=== PATIENT | female | born 1950 | race Caucasian/White ===

== ENCOUNTER → 2016-04-11 | Outpatient (CLI) | payer MEDICARE, OTHER | LOC: M SMT 10:46 | PROVIDERS: ATTEND Internal Medicine Rheumatology | DX: M85.819 Other specified disorders of bone density and structure, unspecified shoulder (principal); E55.9 Vitamin D deficiency, unspecified ==

== ENCOUNTER → 2016-06-05 | Outpatient (CLI) | payer MEDICARE, OTHER ==
[~2016-06-05] VITALS: Ht 152.4 cm; Wt 73.9 kg
[~2016-06-05] MED LIST: ASPI81TA85 PO; ATEN50TA2 PO; FISH1000 PO; HYDR12.55 PO; INFL10VL IV; LEVO75TA4 PO; LIDOCAINE 2% INJ 100 MG/5 ML SDV (FOR ANES.) As Ordered ONE; MULT1TAB10 PO; NABU50TA PO; NS 1,000 ML IV SCH; OMEP40CA2 PO; PROPOFOL 200 MG/20 ML VIAL As Ordered ONE; TRAM50TA2 PO; TYLE500T78 PO; VITA50003 PO; VITA500C10 PO
--- NOTE | 2016-06-05 12:38 | ROOR ---
Patient Name: Dori Castillo Procedure Date: 06/05/2016 12:21 PM Date of : 1950 Age: 65 Room: [facility] Gender: Female Note Status: Finalized Procedure: Colonoscopy Indications: Screening for colorectal malignant neoplasm Providers: Thanh PATRICIA MD Referring MD: LAURIE Simmons PA-C Requesting Provider: Medicines: Monitored Anesthesia Care Complications: No immediate complications. Procedure: Pre-Anesthesia Assessment: - The heart rate, respiratory rate, oxygen saturations, blood pressure, adequacy of pulmonary ventilation, and response to care were monitored throughout the procedure. The Colonoscope was introduced through the anus and advanced to the cecum, identified by appendiceal orifice and ileocecal valve. The colonoscopy was performed without difficulty. The patient tolerated the procedure well. The quality of the bowel preparation was good. Findings: The perianal and digital rectal examinations were normal. (Exam: Complete, Prep: Good or Excellent.) Two sessile polyps were found in the sigmoid colon. The polyps were 3 to 4 mm in size. These polyps were removed with a cold snare. Resection and retrieval were complete. Multiple medium-mouthed diverticula were found in the sigmoid colon. The exam was otherwise without abnormality on direct and retroflexion views. Impression: - Two 3 to 4 mm polyps in the sigmoid colon, removed with a cold snare. Resected and retrieved. - Mild diverticulosis in the sigmoid colon. - The examination was otherwise normal on direct and retroflexion views. Recommendation: - Repeat colonoscopy in 5 years for surveillance. Thanh Patricia MD Thanh PATRICIA MD 06/05/2016 12:38:15 PM This report has been signed electronically. Number of Addenda: 0 Note Initiated On: 06/05/2016 12:21 PM Estimated Blood Loss: Estimated blood loss: none.
[2016-06-05 13:05] VITALS: BP 144/75
== END | disposition home or self-care (01) ==
LOC: M OPP 10:30
PROVIDERS: ATTEND Internal Medicine Gastroenterology
DX: Z12.11 Encounter for screening for malignant neoplasm of colon (principal); D12.5 Benign neoplasm of sigmoid colon; K57.30 Diverticulosis of large intestine without perforation or abscess without bleeding; I10 Essential (primary) hypertension; E78.5 Hyperlipidemia, unspecified; E03.9 Hypothyroidism, unspecified; R12 Heartburn; M19.90 Unspecified osteoarthritis, unspecified site; M06.9 Rheumatoid arthritis, unspecified; Z78.0 Asymptomatic menopausal state; Z88.0 Allergy status to penicillin; Z79.82 Long term (current) use of aspirin; Z79.899 Other long term (current) drug therapy; Z80.1 Family history of malignant neoplasm of trachea, bronchus and lung

== ENCOUNTER → 2016-07-31 | Outpatient (CLI) | payer MEDICARE, OTHER ==
[~2016-07-31] MED LIST changes: -LIDOCAINE 2% INJ 100 MG/5 ML SDV (FOR ANES.) As Ordered ONE; -NS 1,000 ML IV SCH; -PROPOFOL 200 MG/20 ML VIAL As Ordered ONE
[2016-07-31 18:33] LABS: BASO % 0.5 % (0.0-1.0); EOS # 0.1 K/mm3 (0.0-0.50); LARGE UNSTAINED CELL # 0.1 K/mm3 (0.0-0.4); LARGE UNSTAINED CELL % 1.5 % (0.0-4.0); LYMPH # 1.8 K/mm3 (1.5-4.5); LYMPH % 24.7 % (24.0-44.0); MEAN CORPUSCULAR HEMOGLOBIN 28.9 pg (27.0-33.0); MEAN CORPUSCULAR HGB CONC 32.8 g/dl (32.0-36.5); MEAN CORPUSCULAR VOLUME 87.9 fl (80.0-96.0); MONO # 0.3 K/mm3 (0.0-0.8); MONO % 4.1 % (0.0-5.0); NEUTROPHILS # 4.7 K/mm3 (1.8-7.7); NEUTROPHILS % 67.3 % (36.0-66.0); PLATELET COUNT, AUTOMATED 236 k/mm3 (150-450); RED CELL DISTRIBUTION WIDTH 12.6 % (11.5-14.5); WHITE BLOOD COUNT 6.9 K/mm3 (4.0-10.0)
[2016-07-31 18:42] LABS: ALBUMIN 3.5 GM/DL (3.2-5.2); ALKALINE PHOSPHATASE 52 U/L (45-117); ALT/SGPT 27 U/L (12-78); ANION GAP 11 MEQ/L (8-16); AST/SGOT 25 U/L (15-37); BILIRUBIN,TOTAL 0.4 MG/DL (0.2-1.0); BLOOD UREA NITROGEN 7 MG/DL (7-18); CALCIUM LEVEL 8.3 MG/DL (8.8-10.2); CARBON DIOXIDE LEVEL 28 MEQ/L (21-32); CHLORIDE LEVEL 99 MEQ/L (98-107); CREATININE FOR GFR 0.69 MG/DL (0.55-1.02); GLOMERULAR FILTRATION RATE > 60.0 (>45); GLUCOSE, FASTING 119 MG/DL (80-110); POTASSIUM SERUM 3.9 MEQ/L (3.5-5.1); SODIUM LEVEL 138 MEQ/L (136-145); TOTAL PROTEIN 7.4 GM/DL (6.4-8.2)
== END ==
LOC: M SMT 11:26
PROVIDERS: ATTEND Internal Medicine Rheumatology
DX: M06.09 Rheumatoid arthritis without rheumatoid factor, multiple sites (principal); M85.89 Other specified disorders of bone density and structure, multiple sites; Z79.899 Other long term (current) drug therapy

== ENCOUNTER → 2017-01-29 | Outpatient (REF) | payer MEDICARE, OTHER ==
[~2017-01-29] MED LIST changes: +NABU500T PO; -NABU50TA PO; +VITA1CAP40 PO; -VITA50003 PO
[2017-01-29 15:35] LABS: MEAN CORPUSCULAR HEMOGLOBIN 28.4 pg (27.0-33.0); MEAN CORPUSCULAR VOLUME 88.7 fl (80.0-96.0); PLATELET COUNT, AUTOMATED 249 10^3/uL (150-450); RED CELL DISTRIBUTION WIDTH 12.5 % (11.5-14.5); WHITE BLOOD COUNT 5.1 10^3/uL (4.0-10.0)
[2017-01-29 15:41] LABS: ALBUMIN 3.7 GM/DL (3.2-5.2); ALBUMIN/GLOBULIN RATIO 0.93 (1.00-1.93); ALKALINE PHOSPHATASE 53 U/L (45-117); ALT/SGPT 26 U/L (12-78); ANION GAP 8 MEQ/L (8-16); AST/SGOT 21 U/L (7-37); BILIRUBIN,TOTAL 0.3 MG/DL (0.2-1.0); BLOOD UREA NITROGEN 6 MG/DL (7-18); CALCIUM LEVEL 9.4 MG/DL (8.8-10.2); CARBON DIOXIDE LEVEL 31 MEQ/L (21-32); CHLORIDE LEVEL 97 MEQ/L (98-107); CHOLESTEROL LEVEL 283 MG/DL (<200); CREATININE FOR GFR 0.52 MG/DL (0.55-1.02); GLOMERULAR FILTRATION RATE > 60.0 (>45); GLUCOSE, FASTING 94 MG/DL (80-110); MAGNESIUM LEVEL 1.3 MG/DL (1.8-2.4); POTASSIUM SERUM 3.8 MEQ/L (3.5-5.1); SODIUM LEVEL 136 MEQ/L (136-145); TOTAL PROTEIN 7.7 GM/DL (6.4-8.2); TRIGLYCERIDES LEVEL 210 MG/DL (<150)
[2017-02-04 14:18] LABS: BENZODIAZEPINES, URINE SCREEN Negative ng/mL (Cutoff=200); METHADONE, URINE SCREEN Negative ng/mL (Cutoff=300); pH, URINE 8.6 (4.5-8.9)
== END ==
LOC: M SFHCLACO 08:53
PROVIDERS: ATTEND Physician Assistant
DX: M06.9 Rheumatoid arthritis, unspecified (principal); I10 Essential (primary) hypertension; E78.2 Mixed hyperlipidemia; K21.9 Gastro-esophageal reflux disease without esophagitis; E03.9 Hypothyroidism, unspecified; E55.9 Vitamin D deficiency, unspecified; Z79.899 Other long term (current) drug therapy

== ENCOUNTER → 2017-05-14 | Outpatient (CLI) | payer MEDICARE, OTHER ==
[2017-05-14 13:00] LABS: BASO % 0.5 % (0.0-1.0); EOS # 0.2 10^3/uL (0.0-0.50); EOS % 3.2 % (0.0-3.0); HEMATOCRIT 37.6 % (36.0-47.0); HEMOGLOBIN 12.2 g/dl (12.0-16.0); IMMATURE GRANULOCYTE % 0.2 % (0-3.0); LYMPH # 2.1 10^3/uL (1.5-4.5); LYMPH % 37.2 % (24.0-44.0); MEAN CORPUSCULAR HEMOGLOBIN 28.6 pg (27.0-33.0); MEAN CORPUSCULAR HGB CONC 32.4 g/dl (32.0-36.5); MEAN CORPUSCULAR VOLUME 88.3 fl (80.0-96.0); MONO # 0.4 10^3/uL (0.0-0.8); MONO % 6.8 % (0.0-5.0); NEUTROPHILS # 2.9 10^3/uL (1.8-7.7); NEUTROPHILS % 52.1 % (36.0-66.0); PLATELET COUNT, AUTOMATED 233 10^3/uL (150-450); RED BLOOD COUNT 4.26 10^6/uL (4.00-5.40); RED CELL DISTRIBUTION WIDTH 12.6 % (11.5-14.5); WHITE BLOOD COUNT 5.6 10^3/uL (4.0-10.0)
[2017-05-14 14:00] LABS: ALBUMIN 3.7 GM/DL (3.2-5.2); ALBUMIN/GLOBULIN RATIO 0.88 (1.00-1.93); ALKALINE PHOSPHATASE 58 U/L (45-117); ALT/SGPT 26 U/L (12-78); ANION GAP 9 MEQ/L (8-16); AST/SGOT 27 U/L (7-37); BILIRUBIN,TOTAL 0.5 MG/DL (0.2-1.0); BLOOD UREA NITROGEN 9 MG/DL (7-18); CARBON DIOXIDE LEVEL 30 MEQ/L (21-32); CHLORIDE LEVEL 99 MEQ/L (98-107); CREATININE FOR GFR 0.61 MG/DL (0.55-1.30); GLOMERULAR FILTRATION RATE > 60.0 (>45); GLUCOSE, FASTING 101 MG/DL (70-100); POTASSIUM SERUM 3.8 MEQ/L (3.5-5.1); SODIUM LEVEL 138 MEQ/L (136-145); TOTAL PROTEIN 7.9 GM/DL (6.4-8.2)
== END ==
LOC: M SMT 10:09
DX: Z51.81 Encounter for therapeutic drug level monitoring (principal); Z79.899 Other long term (current) drug therapy; M06.09 Rheumatoid arthritis without rheumatoid factor, multiple sites
CPT/HCPCS: 80053

== ENCOUNTER → 2017-06-16 | Outpatient (REF) | payer MEDICARE, OTHER ==
[2017-06-16 14:37] LABS: TOTAL 25(OH) VITAMIN D 44.2 NG/ML (30.0-100.0)
[2017-06-16 14:44] LABS: ALBUMIN 3.9 GM/DL (3.2-5.2); ALBUMIN/GLOBULIN RATIO 0.98 (1.00-1.93); ALKALINE PHOSPHATASE 58 U/L (45-117); ALT/SGPT 23 U/L (12-78); ANION GAP 12 MEQ/L (8-16); AST/SGOT 23 U/L (7-37); BILIRUBIN,TOTAL 0.5 MG/DL (0.2-1.0); BLOOD UREA NITROGEN 7 MG/DL (7-18); CALCIUM LEVEL 9.2 MG/DL (8.8-10.2); CARBON DIOXIDE LEVEL 27 MEQ/L (21-32); CHLORIDE LEVEL 99 MEQ/L (98-107); CHOLESTEROL LEVEL 291 MG/DL (<200); CHOLESTEROL RISK RATIO 4.098 (<5); CREATININE FOR GFR 0.65 MG/DL (0.55-1.30); GLOMERULAR FILTRATION RATE > 60.0 (>45); GLUCOSE, FASTING 131 MG/DL (70-100); HDL CHOLESTEROL 71 MG/DL (>40); LDL CHOLESTEROL 176.8 MG/DL (<100); NON-HDL-C 220 MG/DL; POTASSIUM SERUM 3.4 MEQ/L (3.5-5.1); SODIUM LEVEL 138 MEQ/L (136-145); THYROID STIMULATING HORMONE 0.055 uIU/ML (0.358-3.740); TOTAL PROTEIN 7.9 GM/DL (6.4-8.2); TRIGLYCERIDES LEVEL 216 MG/DL (<150)
== END ==
LOC: M SFHCLACO 09:03
DX: E78.2 Mixed hyperlipidemia (principal); I10 Essential (primary) hypertension; E03.9 Hypothyroidism, unspecified; E55.9 Vitamin D deficiency, unspecified
CPT/HCPCS: 84443

== ENCOUNTER → 2017-07-16 | Outpatient (REF) | payer MEDICARE, OTHER ==
[2017-07-16 15:13] LABS: ESTIMATED AVERAGE GLUCOSE 94 MG/DL (60-110); HEMOGLOBIN A1c 4.9 %
[2017-07-16 15:24] LABS: ALBUMIN 3.9 GM/DL (3.2-5.2); ALBUMIN/GLOBULIN RATIO 0.98 (1.00-1.93); ALKALINE PHOSPHATASE 60 U/L (45-117); ALT/SGPT 29 U/L (12-78); ANION GAP 8 MEQ/L (8-16); AST/SGOT 24 U/L (7-37); BILIRUBIN,TOTAL 0.3 MG/DL (0.2-1.0); BLOOD UREA NITROGEN 13 MG/DL (7-18); CALCIUM LEVEL 8.8 MG/DL (8.8-10.2); CARBON DIOXIDE LEVEL 30 MEQ/L (21-32); CHLORIDE LEVEL 101 MEQ/L (98-107); CHOLESTEROL LEVEL 205 MG/DL (<200); CHOLESTEROL RISK RATIO 3.014 (<5); CREATININE FOR GFR 0.76 MG/DL (0.55-1.30); GLOMERULAR FILTRATION RATE > 60.0 (>45); GLUCOSE, FASTING 78 MG/DL (70-100); HDL CHOLESTEROL 68 MG/DL (>40); NON-HDL-C 137 MG/DL; SODIUM LEVEL 139 MEQ/L (136-145); THYROID STIMULATING HORMONE 0.084 uIU/ML (0.358-3.740); TOTAL PROTEIN 7.9 GM/DL (6.4-8.2); TRIGLYCERIDES LEVEL 200 MG/DL (<150)
== END ==
LOC: M SFHCLACO 09:01
DX: R73.9 Hyperglycemia, unspecified (principal); E87.6 Hypokalemia; J30.89 Other allergic rhinitis; E78.2 Mixed hyperlipidemia; E03.9 Hypothyroidism, unspecified
CPT/HCPCS: 84443

== ENCOUNTER → 2017-09-22 | Outpatient (REF) | payer MEDICARE, OTHER ==
[2017-09-22 15:07] LABS: BASO # 0.1 10^3/uL (0.0-0.2); BASO % 0.9 % (0.0-1.0); EOS # 0.3 10^3/uL (0.0-0.50); HEMATOCRIT 34.8 % (36.0-47.0); HEMOGLOBIN 11.2 g/dl (12.0-15.5); IMMATURE GRANULOCYTE % 0.1 % (0-3.0); LYMPH % 29.2 % (24.0-44.0); MEAN CORPUSCULAR HEMOGLOBIN 28.3 pg (27.0-33.0); MEAN CORPUSCULAR HGB CONC 32.2 g/dl (32.0-36.5); MEAN CORPUSCULAR VOLUME 87.9 fl (80.0-96.0); MONO # 0.4 10^3/uL (0.0-0.8); MONO % 5.4 % (0.0-5.0); NEUTROPHILS # 4.2 10^3/uL (1.8-7.7); NEUTROPHILS % 60.4 % (36.0-66.0); PLATELET COUNT, AUTOMATED 240 10^3/uL (150-450); RED BLOOD COUNT 3.96 10^6/uL (4.00-5.40); RED CELL DISTRIBUTION WIDTH 12.6 % (11.5-14.5)
[2017-09-22 15:19] LABS: ALBUMIN 3.9 GM/DL (3.2-5.2); ALT/SGPT 50 U/L (12-78); AST/SGOT 47 U/L (7-37); C REACTIVE PROTEIN QUANTITATIV 0.39 MG/DL (0.00-0.30); CREATININE FOR GFR 0.91 MG/DL (0.55-1.30); GLOMERULAR FILTRATION RATE > 60.0 (>45)
[2017-09-22 15:40] LABS: ERYTHROCYTE SEDIMENTATION RATE 61 mm/hr (0-30)
[2017-09-23 10:38] LABS: HEPATITIS B SURFACE ANTIGEN NEGATIVE (NEGATIVE)
[2017-09-23 11:03] LABS: HEPATITIS C VIRUS ABY INDEX 0.1 INDEX (<0.8)
== END ==
LOC: M LAB REF 14:47
DX: M05.79 Rheumatoid arthritis with rheumatoid factor of multiple sites without organ or systems involvement (principal); Z51.81 Encounter for therapeutic drug level monitoring; Z79.899 Other long term (current) drug therapy; E78.2 Mixed hyperlipidemia; E03.9 Hypothyroidism, unspecified
CPT/HCPCS: 84443; 87340

== ENCOUNTER → 2017-09-22 | Outpatient (REF) | payer MEDICARE, OTHER ==
[2017-09-22 15:28] LABS: ALBUMIN 3.7 GM/DL (3.2-5.2); ALBUMIN/GLOBULIN RATIO 0.93 (1.00-1.93); ALKALINE PHOSPHATASE 62 U/L (45-117); ALT/SGPT 48 U/L (12-78); ANION GAP 11 MEQ/L (8-16); AST/SGOT 43 U/L (7-37); BILIRUBIN,TOTAL 0.4 MG/DL (0.2-1.0); BLOOD UREA NITROGEN 14 MG/DL (7-18); CALCIUM LEVEL 8.7 MG/DL (8.8-10.2); CARBON DIOXIDE LEVEL 27 MEQ/L (21-32); CHLORIDE LEVEL 100 MEQ/L (98-107); CHOLESTEROL LEVEL 242 MG/DL (<200); CHOLESTEROL RISK RATIO 4.653 (<5); GLOMERULAR FILTRATION RATE > 60.0 (>45); GLUCOSE, FASTING 81 MG/DL (70-100); HDL CHOLESTEROL 52 MG/DL (>40); LDL CHOLESTEROL 128.4 MG/DL (<100); NON-HDL-C 190 MG/DL; POTASSIUM SERUM 3.7 MEQ/L (3.5-5.1); SODIUM LEVEL 138 MEQ/L (136-145); THYROID STIMULATING HORMONE 0.111 uIU/ML (0.358-3.740); TOTAL PROTEIN 7.7 GM/DL (6.4-8.2); TRIGLYCERIDES LEVEL 308 MG/DL (<150)
== END ==
LOC: M SFHCLACO 09:15
DX: E78.2 Mixed hyperlipidemia (principal); E03.9 Hypothyroidism, unspecified
CPT/HCPCS: 84443

== ENCOUNTER → 2017-11-03 | Outpatient (REF) | payer MEDICARE, OTHER ==
[2017-11-03 15:11] LABS: TOTAL 25(OH) VITAMIN D 32.4 NG/ML (30.0-100.0)
[2017-11-03 15:17] LABS: ALBUMIN 3.6 GM/DL (3.2-5.2); ALBUMIN/GLOBULIN RATIO 0.86 (1.00-1.93); ALKALINE PHOSPHATASE 48 U/L (45-117); ALT/SGPT 47 U/L (12-78); ANION GAP 10 MEQ/L (8-16); AST/SGOT 45 U/L (7-37); BILIRUBIN,TOTAL 0.5 MG/DL (0.2-1.0); BLOOD UREA NITROGEN 15 MG/DL (7-18); CALCIUM LEVEL 8.8 MG/DL (8.8-10.2); CARBON DIOXIDE LEVEL 27 MEQ/L (21-32); CHLORIDE LEVEL 103 MEQ/L (98-107); CHOLESTEROL LEVEL 232 MG/DL (<200); CHOLESTEROL RISK RATIO 3.515 (<5); CREATININE FOR GFR 1.24 MG/DL (0.55-1.30); GLOMERULAR FILTRATION RATE 45.9 (>45); GLUCOSE, FASTING 76 MG/DL (70-100); HDL CHOLESTEROL 66 MG/DL (>40); NON-HDL-C 166 MG/DL; POTASSIUM SERUM 4.7 MEQ/L (3.5-5.1); SODIUM LEVEL 140 MEQ/L (136-145); TOTAL PROTEIN 7.8 GM/DL (6.4-8.2); TRIGLYCERIDES LEVEL 467 MG/DL (<150)
== END ==
LOC: M SFHCLACO 09:19
DX: I10 Essential (primary) hypertension (principal); E78.2 Mixed hyperlipidemia; E03.9 Hypothyroidism, unspecified; E55.9 Vitamin D deficiency, unspecified; R73.9 Hyperglycemia, unspecified; E87.6 Hypokalemia; K21.9 Gastro-esophageal reflux disease without esophagitis; M06.9 Rheumatoid arthritis, unspecified; J30.89 Other allergic rhinitis
CPT/HCPCS: 84443

== ENCOUNTER → 2017-12-21 | Outpatient (CLI) | payer MEDICARE, OTHER | LOC: M LRY 10:49 | DX: M19.041 Primary osteoarthritis, right hand (principal); M19.042 Primary osteoarthritis, left hand; M85.841 Other specified disorders of bone density and structure, right hand; M25.741 Osteophyte, right hand; M25.742 Osteophyte, left hand; M17.0 Bilateral primary osteoarthritis of knee; M25.761 Osteophyte, right knee; M25.762 Osteophyte, left knee; M21.061 Valgus deformity, not elsewhere classified, right knee; M85.861 Other specified disorders of bone density and structure, right lower leg; M85.862 Other specified disorders of bone density and structure, left lower leg; M05.9 Rheumatoid arthritis with rheumatoid factor, unspecified | CPT/HCPCS: 73130 ==

== ENCOUNTER → 2017-12-21 | Outpatient (REF) | payer MEDICARE, OTHER ==
[2017-12-21 18:35] LABS: BASO % 0.5 % (0.0-1.0); EOS # 0.2 10^3/uL (0.0-0.50); EOS % 3.4 % (0.0-3.0); HEMATOCRIT 34.1 % (36.0-47.0); HEMOGLOBIN 10.5 g/dl (12.0-15.5); IMMATURE GRANULOCYTE % 0.3 % (0-3.0); LYMPH # 1.9 10^3/uL (1.5-4.5); LYMPH % 30.3 % (24.0-44.0); MEAN CORPUSCULAR HEMOGLOBIN 28.7 pg (27.0-33.0); MEAN CORPUSCULAR HGB CONC 30.8 g/dl (32.0-36.5); MEAN CORPUSCULAR VOLUME 93.2 fl (80.0-96.0); MONO # 0.3 10^3/uL (0.0-0.8); MONO % 4.6 % (0.0-5.0); NEUTROPHILS # 3.7 10^3/uL (1.8-7.7); NEUTROPHILS % 60.9 % (36.0-66.0); PLATELET COUNT, AUTOMATED 202 10^3/uL (150-450); RED BLOOD COUNT 3.66 10^6/uL (4.00-5.40); RED CELL DISTRIBUTION WIDTH 13.3 % (11.5-14.5); WHITE BLOOD COUNT 6.1 10^3/uL (4.0-10.0)
[2017-12-21 18:52] LABS: ALBUMIN 3.9 GM/DL (3.2-5.2); ALBUMIN/GLOBULIN RATIO 0.93 (1.00-1.93); ALKALINE PHOSPHATASE 56 U/L (45-117); ALT/SGPT 29 U/L (12-78); ANION GAP 6 MEQ/L (8-16); AST/SGOT 32 U/L (7-37); BILIRUBIN,TOTAL 0.6 MG/DL (0.2-1.0); BLOOD UREA NITROGEN 13 MG/DL (7-18); C REACTIVE PROTEIN QUANTITATIV 0.32 MG/DL (0.00-0.30); CALCIUM LEVEL 9.3 MG/DL (8.8-10.2); CARBON DIOXIDE LEVEL 30 MEQ/L (21-32); CHLORIDE LEVEL 100 MEQ/L (98-107); CREATININE FOR GFR 1.08 MG/DL (0.55-1.30); GLOMERULAR FILTRATION RATE 53.9 (>45); GLUCOSE, FASTING 80 MG/DL (70-100); POTASSIUM SERUM 4.4 MEQ/L (3.5-5.1); SODIUM LEVEL 136 MEQ/L (136-145); TOTAL PROTEIN 8.1 GM/DL (6.4-8.2)
[2017-12-21 19:24] LABS: ERYTHROCYTE SEDIMENTATION RATE 67 mm/hr (0-30)
[2017-12-23 10:36] LABS: HEPATITIS B SURFACE ANTIBODY NEGATIVE (POSITIVE); HEPATITIS B SURFACE ANTIGEN NEGATIVE (NEGATIVE); HEPATITIS C VIRUS ABY INDEX 0.1 INDEX (<0.8); HIV 1&2 SCREEN CENTAUR NEGATIVE (NEGATIVE)
[2017-12-24 00:10] LABS: HEPATITIS B CORE ANTIBODY IGG Negative (Negative)
[2017-12-24 00:10] LABS: QUANTIFERON GOLD TB Negative (Negative); TB Test (QFT) Antigen 0.04 IU/mL (.); TB Test (QFT) Mitogen 7.16 IU/mL (.); TB Test (QFT) Nil 0.04 IU/mL (.)
== END ==
LOC: M SFHCLERA 10:39
DX: M05.9 Rheumatoid arthritis with rheumatoid factor, unspecified (principal)
CPT/HCPCS: 80053

== ENCOUNTER 2018-01-05 08:48 | Outpatient (CLI) | payer MEDICARE, OTHER ==
[2018-01-05] MEDS ORDERED: NS 1,000 ML IV (09:00)
[2018-01-05] MEDS: diphenhydrAMINE 25 MG CAP PO (09:15)
[2018-01-05] MEDS: ACETAMINOPHEN TAB 650MG DOSE (2X325MG) PO (09:15)
[2018-01-05] MEDS: FILTER 1.2 MICRON (ADULT TPN/MANNITOL/REMICADE) XX (09:30)
[2018-01-05] MEDS: inFLIXimab INJECTION 400 MG in NS 210 ML IV (09:30)
== END 2018-01-05 12:05 | disposition home or self-care (01) ==
LOC: M INFU 08:48
DX: M17.11 Unilateral primary osteoarthritis, right knee (principal); M05.9 Rheumatoid arthritis with rheumatoid factor, unspecified; Z88.8 Allergy status to other drugs, medicaments and biological substances
CPT/HCPCS: J1745

== ENCOUNTER 2018-02-16 08:47 | Outpatient (CLI) | payer MEDICARE, OTHER ==
[2018-02-16] MEDS: NS 1,000 ML IV (09:45)
[2018-02-16] MEDS: FILTER 1.2 MICRON (ADULT TPN/MANNITOL/REMICADE) XX (09:45)
[2018-02-16] MEDS: inFLIXimab INJECTION 400 MG in NS 210 ML IV (10:37)
== END 2018-02-16 13:15 | disposition home or self-care (01) ==
LOC: M INFU 08:47
DX: M17.11 Unilateral primary osteoarthritis, right knee (principal); M05.9 Rheumatoid arthritis with rheumatoid factor, unspecified
CPT/HCPCS: J1745

== ENCOUNTER 2018-04-01 08:44 | Outpatient (CLI) | payer MEDICARE, OTHER ==
[~2018-04-01] VITALS: Ht 152.4 cm; Wt 72.8 kg
[2018-04-01] VITALS (8 sets, daily range): BP systolic 110–160; BP diastolic 55–74
[~2018-04-01 08:44] MED LIST changes: +NABU-126 PO; -NABU500T PO; -VITA1CAP40 PO; +VITA50005 PO
[2018-04-01] MEDS ORDERED: NS 1,000 ML IV SCH (09:00)
[2018-04-01] MEDS ORDERED: ACETAMINOPHEN 650MG PO PRIOR TO INFUSION PO ONE (09:00)
[2018-04-01] MEDS ORDERED: inFLIXimab INJECTION 400 MG in NS 210 ML IV ONE (09:00)
[2018-04-01] MEDS ORDERED: FILTER 1.2 MICRON (ADULT TPN/MANNITOL/REMICADE) XX ONE (09:00)
[2018-04-01] MEDS ORDERED: ATOR1TAB19 PO (10:39)
[2018-04-01] MEDS ORDERED: METO1TAB7 PO (10:39)
[2018-04-01] MEDS ORDERED: VITA100066 PO (10:40)
[2018-04-01] MEDS ORDERED: VENTAER INH (10:40)
[2018-04-01] MEDS ORDERED: GLUC15002 PO (10:41)
[2018-04-01] MEDS ORDERED: MAXZTA PO (10:42)
== END 2018-04-01 11:55 | disposition home or self-care (01) ==
LOC: M INFU 08:44
PROVIDERS: ATTEND Internal Medicine Rheumatology
DX: M05.9 Rheumatoid arthritis with rheumatoid factor, unspecified (principal); M17.11 Unilateral primary osteoarthritis, right knee; Z88.0 Allergy status to penicillin
CPT/HCPCS: 96413; 96415; J1745

== ENCOUNTER → 2018-04-02 | Outpatient (REF) | payer MEDICARE, OTHER ==
[~2018-04-02] MED LIST changes: +ATOR1TAB19 PO; +GLUC15002 PO; +MAXZTA PO; +METO1TAB7 PO; +VENTAER INH; +VITA100066 PO
[2018-04-02 13:45] LABS: BASO % 0.6 % (0.0-1.0); EOS # 0.1 10^3/uL (0.0-0.50); EOS % 2.7 % (0.0-3.0); HEMATOCRIT 32.4 % (36.0-47.0); HEMOGLOBIN 10.3 g/dl (12.0-15.5); LYMPH # 1.6 10^3/uL (1.5-4.5); MEAN CORPUSCULAR HEMOGLOBIN 29.3 pg (27.0-33.0); MEAN CORPUSCULAR HGB CONC 31.8 g/dl (32.0-36.5); MONO # 0.4 10^3/uL (0.0-0.8); MONO % 7.2 % (0.0-5.0); NEUTROPHILS # 2.7 10^3/uL (1.8-7.7); NEUTROPHILS % 55.1 % (36.0-66.0); PLATELET COUNT, AUTOMATED 211 10^3/uL (150-450); RED BLOOD COUNT 3.52 10^6/uL (4.00-5.40); WHITE BLOOD COUNT 4.8 10^3/uL (4.0-10.0)
[2018-04-02 13:53] LABS: ALBUMIN 3.6 GM/DL (3.2-5.2); ALT/SGPT 26 U/L (12-78); BILIRUBIN,TOTAL 0.6 MG/DL (0.2-1.0); BLOOD UREA NITROGEN 12 MG/DL (7-18); C REACTIVE PROTEIN QUANTITATIV 0.81 MG/DL (0.00-0.30); CALCIUM LEVEL 8.7 MG/DL (8.8-10.2); CARBON DIOXIDE LEVEL 26 MEQ/L (21-32); CHLORIDE LEVEL 101 MEQ/L (98-107); CREATININE FOR GFR 0.82 MG/DL (0.55-1.30); GLOMERULAR FILTRATION RATE > 60.0 (>45); GLUCOSE, FASTING 88 MG/DL (70-100); POTASSIUM SERUM 3.5 MEQ/L (3.5-5.1); SODIUM LEVEL 137 MEQ/L (136-145); TOTAL PROTEIN 7.7 GM/DL (6.4-8.2)
[2018-04-02 14:24] LABS: ERYTHROCYTE SEDIMENTATION RATE 64 mm/hr (0-30)
== END ==
LOC: M SFHCPLAZ 11:20
PROVIDERS: ATTEND Internal Medicine Rheumatology
DX: M05.9 Rheumatoid arthritis with rheumatoid factor, unspecified (principal); Z23 Encounter for immunization
CPT/HCPCS: 36415; 80053; 84550; 85025; 85652; 86140; 90682; G0008; G0463

== ENCOUNTER → 2018-04-09 | Outpatient (REF) | payer MEDICARE, OTHER ==
[2018-04-09 12:37] LABS: CRYSTALS, BODY FLUID NONE SEEN (NONE SEEN); SOURCE, BODY FLUID CRYSTALS RT KNEE
[2018-04-09 14:00] LABS: APPEARANCE, BODY FLUID CLEAR
== END ==
LOC: M SFHCPLAZ 10:11
PROVIDERS: ATTEND Internal Medicine Rheumatology
DX: M17.11 Unilateral primary osteoarthritis, right knee (principal)
CPT/HCPCS: 20610; 87070; 87205; 88108; 89051; 89060; G0463; J1040

== ENCOUNTER 2018-05-13 09:23 | Outpatient (CLI) | payer MEDICARE, OTHER ==
[2018-05-13] VITALS (8 sets, daily range): BP systolic 119–151; BP diastolic 58–75
[2018-05-13] MEDS ORDERED: FILTER 1.2 MICRON (ADULT TPN/MANNITOL/REMICADE) XX ONE (10:00)
[2018-05-13] MEDS ORDERED: ACETAMINOPHEN 650MG PO PRIOR TO INFUSION PO ONE (10:00)
[2018-05-13] MEDS ORDERED: inFLIXimab INJECTION 400 MG in NS 210 ML IV ONE (10:00)
[2018-05-13] MEDS ORDERED: NS 1,000 ML IV SCH (10:00)
== END 2018-05-13 12:30 | disposition home or self-care (01) ==
LOC: M INFU 09:23
PROVIDERS: ATTEND Internal Medicine Rheumatology
DX: M05.9 Rheumatoid arthritis with rheumatoid factor, unspecified (principal); Z88.0 Allergy status to penicillin
CPT/HCPCS: 96413; 96415; J1745

== ENCOUNTER → 2018-07-01 | Outpatient (REF) | payer MEDICARE, OTHER ==
[2018-07-01 13:48] LABS: BASO % 0.8 % (0.0-1.0); EOS # 0.1 10^3/uL (0.0-0.50); HEMATOCRIT 32.5 % (36.0-47.0); HEMOGLOBIN 10.3 g/dl (12.0-15.5); LYMPH # 1.5 10^3/uL (1.5-4.5); LYMPH % 30.3 % (24.0-44.0); MEAN CORPUSCULAR HEMOGLOBIN 29.6 pg (27.0-33.0); MEAN CORPUSCULAR HGB CONC 31.7 g/dl (32.0-36.5); MEAN CORPUSCULAR VOLUME 93.4 fl (80.0-96.0); MONO # 0.4 10^3/uL (0.0-0.8); MONO % 8.6 % (0.0-5.0); NEUTROPHILS # 2.9 10^3/uL (1.8-7.7); NEUTROPHILS % 58.1 % (36.0-66.0); PLATELET COUNT, AUTOMATED 185 10^3/uL (150-450); RED BLOOD COUNT 3.48 10^6/uL (4.00-5.40); WHITE BLOOD COUNT 4.9 10^3/uL (4.0-10.0)
[2018-07-01 14:26] LABS: ERYTHROCYTE SEDIMENTATION RATE 66 mm/hr (0-30)
[2018-07-01 14:27] LABS: ALBUMIN 3.8 GM/DL (3.2-5.2); BILIRUBIN,TOTAL 0.8 MG/DL (0.2-1.0); C REACTIVE PROTEIN QUANTITATIV 0.98 MG/DL (0.00-0.30); CALCIUM LEVEL 8.9 MG/DL (8.8-10.2); CREATININE FOR GFR 1.02 MG/DL (0.55-1.30); GLOMERULAR FILTRATION RATE 57.5 (>45); POTASSIUM SERUM 3.6 MEQ/L (3.5-5.1); TOTAL PROTEIN 7.6 GM/DL (6.4-8.2)
== END ==
LOC: M SFHCPLAZ 11:40
PROVIDERS: ATTEND Internal Medicine Rheumatology
DX: M05.9 Rheumatoid arthritis with rheumatoid factor, unspecified (principal)
CPT/HCPCS: 36415; 80053; 85025; 85652; 86140; G0463

== ENCOUNTER 2018-07-07 14:02 | Outpatient (CLI) | payer MEDICARE, OTHER ==
[~2018-07-07] VITALS: Ht 154.9 cm; Wt 71.1 kg
[2018-07-07] VITALS (8 sets, daily range): BP systolic 117–140; BP diastolic 57–89
[2018-07-07] MEDS ORDERED: methylPREDNISolone INJ 125 MG/2 ML VIAL (J2930) IV PRN (15:00)
[2018-07-07] MEDS ORDERED: diphenhydrAMINE 25 MG CAP PO ONE (15:00)
[2018-07-07] MEDS ORDERED: NS 1,000 ML IV SCH ×2 (15:00)
[2018-07-07] MEDS ORDERED: diphenhydrAMINE INJ 50MG/ML VIAL (J1200) IV PRN (15:00)
[2018-07-07] MEDS ORDERED: ALBUTEROL SULFATE 2.5 MG/0.5 ML INH NEB SOLN INH PRN (15:00)
[2018-07-07] MEDS ORDERED: EPINEPHrine INJ 1 MG/ML 1ML AMP IM PRN (15:00)
[2018-07-07] MEDS ORDERED: FILTER 1.2 MICRON (ADULT TPN/MANNITOL/REMICADE) XX ONE (15:00)
[2018-07-07] MEDS ORDERED: inFLIXimab INJECTION 400 MG in NS 210 ML IV ONE (16:00)
== END 2018-07-07 17:45 | disposition home or self-care (01) ==
LOC: M INFU 14:02
PROVIDERS: ATTEND Internal Medicine Rheumatology
DX: M05.9 Rheumatoid arthritis with rheumatoid factor, unspecified (principal); I10 Essential (primary) hypertension; E78.5 Hyperlipidemia, unspecified; E03.9 Hypothyroidism, unspecified; E55.9 Vitamin D deficiency, unspecified; Z88.8 Allergy status to other drugs, medicaments and biological substances
CPT/HCPCS: 96413; 96415; J1745

== ENCOUNTER → 2018-07-19 | Outpatient (REF) | payer MEDICARE, OTHER | LOC: M LAB REF 12:57 | PROVIDERS: ATTEND Physician Assistant | DX: R35.0 Frequency of micturition (principal) ==

== ENCOUNTER → 2018-08-06 | Outpatient (REF) | payer MEDICARE, OTHER ==
[2018-08-06 14:05] LABS: APPEARANCE, URINE CLEAR (CLEAR); BACTERIA, URINE AUTO NEGATIVE (NEGATIVE); BILIRUBIN, URINE AUTO NEGATIVE (NEGATIVE); BLOOD, URINE BLOOD NEGATIVE (NEGATIVE); COLOR, URINE YELLOW (YELLOW); GLUCOSE, URINE (UA) AUTO NEGATIVE (NEGATIVE); KETONE, URINE AUTO NEGATIVE (NEGATIVE); LEUKOCYTE ESTERASE, URINE AUTO NEGATIVE (NEGATIVE); NITRITE, URINE AUTO NEGATIVE (NEGATIVE); PROTEIN, URINE AUTO NEGATIVE (NEGATIVE); RBC, URINE AUTO 0 /HPF (0-3); SPECIFIC GRAVITY URINE AUTO 1.009 (1.002-1.035); SQUAMOUS EPITHELIAL CELL UR AU 2 /HPF (0-6); UROBILINOGEN, URINE AUTO 0.2 mg/dL (0.0-2.0); WBC, URINE AUTO 1 /HPF (0-3)
== END ==
LOC: M SMT 13:14
PROVIDERS: ATTEND Nurse Practitioner Women's Health
DX: N39.0 Urinary tract infection, site not specified (principal)
CPT/HCPCS: 81001; 87086; G0463

== ENCOUNTER 2018-10-19 12:46 | Outpatient (CLI) | payer MEDICARE, OTHER ==
[~2018-10-19] VITALS: Ht 154.9 cm; Wt 71.1 kg
[2018-10-19] MEDS ORDERED: FILTER 1.2 MICRON (ADULT TPN/MANNITOL/REMICADE) XX ONE (13:00)
[2018-10-19] MEDS ORDERED: inFLIXimab INJECTION 400 MG in NS 210 ML IV ONE (13:00)
[2018-10-19] MEDS ORDERED: NS 1,000 ML IV SCH (13:00)
[2018-10-19] MEDS ORDERED: methylPREDNISolone INJ 125 MG/2 ML VIAL (J2930) IV PRN (13:00)
[2018-10-19] MEDS ORDERED: EPINEPHrine INJ 1 MG/ML 1ML AMP IM PRN (13:00)
[2018-10-19] MEDS ORDERED: ALBUTEROL SULFATE 2.5 MG/0.5 ML INH NEB SOLN INH PRN (13:00)
[2018-10-19] MEDS ORDERED: diphenhydrAMINE INJ 50MG/ML VIAL (J1200) IV PRN (13:00)
[2018-10-19 13:15] VITALS: BP 114/58
== END 2018-10-19 15:45 | disposition home or self-care (01) ==
LOC: M INFU 12:46
PROVIDERS: ATTEND Internal Medicine Rheumatology
DX: M05.9 Rheumatoid arthritis with rheumatoid factor, unspecified (principal)
CPT/HCPCS: 96413; 96415; J1745

== ENCOUNTER → 2018-10-22 | Outpatient (REF) | payer MEDICARE, OTHER ==
[2018-10-22 12:41] LABS: BASO # 0.1 10^3/uL (0.0-0.2); BASO % 0.8 % (0.0-1.0); EOS # 0.3 10^3/uL (0.0-0.50); EOS % 4.3 % (0.0-3.0); HEMATOCRIT 30.6 % (36.0-47.0); HEMOGLOBIN 9.6 g/dl (12.0-15.5); LYMPH # 2.8 10^3/uL (1.5-4.5); LYMPH % 42.2 % (24.0-44.0); MEAN CORPUSCULAR HEMOGLOBIN 28.4 pg (27.0-33.0); MEAN CORPUSCULAR HGB CONC 31.4 g/dl (32.0-36.5); MEAN CORPUSCULAR VOLUME 90.5 fl (80.0-96.0); MONO # 0.4 10^3/uL (0.0-0.8); MONO % 5.8 % (0.0-5.0); NEUTROPHILS # 3.1 10^3/uL (1.8-7.7); NEUTROPHILS % 46.4 % (36.0-66.0); PLATELET COUNT, AUTOMATED 250 10^3/uL (150-450); RED BLOOD COUNT 3.38 10^6/uL (4.00-5.40); WHITE BLOOD COUNT 6.6 10^3/uL (4.0-10.0)
[2018-10-22 12:55] LABS: ALBUMIN 3.5 GM/DL (3.2-5.2); ALT/SGPT 21 U/L (12-78); BILIRUBIN,TOTAL 0.4 MG/DL (0.2-1.0); BLOOD UREA NITROGEN 15 MG/DL (7-18); CALCIUM LEVEL 9.1 MG/DL (8.8-10.2); CARBON DIOXIDE LEVEL 28 MEQ/L (21-32); CHLORIDE LEVEL 98 MEQ/L (98-107); CHOLESTEROL LEVEL 287 MG/DL (<200); CHOLESTEROL RISK RATIO 4.704 (<5); CREATININE FOR GFR 0.98 MG/DL (0.55-1.30); GLOMERULAR FILTRATION RATE > 60.0 (>45); GLUCOSE, FASTING 78 MG/DL (70-100); HDL CHOLESTEROL 61 MG/DL (>40); NON-HDL-C 226 MG/DL; SODIUM LEVEL 134 MEQ/L (136-145); TOTAL 25(OH) VITAMIN D 37.5 NG/ML (30.0-100.0); TOTAL PROTEIN 7.4 GM/DL (6.4-8.2); TRIGLYCERIDES LEVEL 420 MG/DL (<150)
[2018-10-22 13:19] LABS: HEMOGLOBIN A1c 4.7 %
[2018-10-24 08:38] LABS: CREATININE, URINE 40.9 mg/dL (20.0-300.0)
== END ==
LOC: M SFHCADAM 09:00
PROVIDERS: ATTEND Physician Assistant
DX: M05.9 Rheumatoid arthritis with rheumatoid factor, unspecified (principal); R73.9 Hyperglycemia, unspecified; E78.2 Mixed hyperlipidemia; E03.9 Hypothyroidism, unspecified; E55.9 Vitamin D deficiency, unspecified; Z79.899 Other long term (current) drug therapy

== ENCOUNTER 2018-12-07 08:47 | Outpatient (CLI) | payer MEDICARE, OTHER ==
[~2018-12-07] VITALS: Ht 154.9 cm; Wt 71.1 kg
[2018-12-07 08:50] VITALS: BP 149/65
[2018-12-07] MEDS ORDERED: inFLIXimab INJECTION 400 MG in NS 210 ML IV ONE (09:30)
[2018-12-07] MEDS ORDERED: methylPREDNISolone INJ 125 MG/2 ML VIAL (J2930) IV PRN (09:30)
[2018-12-07] MEDS ORDERED: NS 1,000 ML IV SCH (09:30)
[2018-12-07] MEDS ORDERED: FILTER 1.2 MICRON (ADULT TPN/MANNITOL/REMICADE) XX ONE (09:30)
[2018-12-07] MEDS ORDERED: ALBUTEROL SULFATE 2.5 MG/0.5 ML INH NEB SOLN INH PRN (09:30)
[2018-12-07] MEDS ORDERED: EPINEPHrine INJ 1 MG/ML 1ML AMP IM PRN (09:30)
[2018-12-07] MEDS ORDERED: diphenhydrAMINE INJ 50MG/ML VIAL (J1200) IV PRN (09:30)
[2018-12-07] MEDS ORDERED: BENA25CA4 PO (09:38)
== END 2018-12-07 11:45 | disposition home or self-care (01) ==
LOC: M INFU 08:47
PROVIDERS: ATTEND Internal Medicine Rheumatology
DX: M05.9 Rheumatoid arthritis with rheumatoid factor, unspecified (principal)
CPT/HCPCS: 96413; 96415; J1745

== ENCOUNTER → 2019-01-05 | Outpatient (CLI) | payer MEDICARE, OTHER ==
[~2019-01-05] MED LIST changes: +BENA25CA4 PO; -OMEP40CA2 PO; +OMEP40CA97 PO
[2019-01-05 13:27] LABS: BASO % 0.6 % (0.0-1.0); EOS # 0.1 10^3/uL (0.0-0.5); EOS % 1.8 % (0.0-3.0); HEMOGLOBIN 11.3 g/dl (12.0-15.5); LYMPH # 2.2 10^3/uL (1.5-5.0); LYMPH % 32.9 % (24.0-44.0); MEAN CORPUSCULAR HEMOGLOBIN 29.2 pg (27.0-33.0); MEAN CORPUSCULAR HGB CONC 32.3 g/dl (32.0-36.5); MEAN CORPUSCULAR VOLUME 90.4 fl (80.0-96.0); MONO # 0.4 10^3/uL (0.0-0.8); MONO % 6.1 % (0.0-5.0); NEUTROPHILS # 3.9 10^3/uL (1.5-8.5); NEUTROPHILS % 58.4 % (36.0-66.0); PLATELET COUNT, AUTOMATED 238 10^3/uL (150-450); RED BLOOD COUNT 3.87 10^6/uL (4.00-5.40); WHITE BLOOD COUNT 6.6 10^3/uL (4.0-10.0)
[2019-01-05 14:01] LABS: ERYTHROCYTE SEDIMENTATION RATE 52 mm/hr (0-30)
[2019-01-05 14:12] LABS: ALBUMIN 3.6 GM/DL (3.2-5.2); ALT/SGPT 22 U/L (12-78); BILIRUBIN,TOTAL 0.6 MG/DL (0.2-1.0); BLOOD UREA NITROGEN 10 MG/DL (7-18); C REACTIVE PROTEIN QUANTITATIV < 0.30 MG/DL (0.00-0.30); CALCIUM LEVEL 8.9 MG/DL (8.8-10.2); CARBON DIOXIDE LEVEL 27 MEQ/L (21-32); CHLORIDE LEVEL 95 MEQ/L (98-107); CREATININE FOR GFR 0.99 MG/DL (0.55-1.30); GLOMERULAR FILTRATION RATE 59.4 (>45); GLUCOSE, FASTING 88 MG/DL (70-100); POTASSIUM SERUM 4.4 MEQ/L (3.5-5.1); SODIUM LEVEL 132 MEQ/L (136-145); TOTAL PROTEIN 7.8 GM/DL (6.4-8.2)
== END ==
LOC: M SMT 08:42
PROVIDERS: ATTEND Internal Medicine Rheumatology
DX: M05.9 Rheumatoid arthritis with rheumatoid factor, unspecified (principal)
CPT/HCPCS: 36415; 80053; 85025; 85652; 86140; 86480; G0463

== ENCOUNTER → 2019-01-11 | Outpatient (REF) | payer MEDICARE, OTHER ==
[~2019-01-11] MED LIST changes: +OMEP40CA2 PO; -OMEP40CA97 PO
[2019-01-11 13:54] LABS: ALBUMIN 3.3 GM/DL (3.2-5.2); ALT/SGPT 18 U/L (12-78); BILIRUBIN,TOTAL 0.6 MG/DL (0.2-1.0); BLOOD UREA NITROGEN 8 MG/DL (7-18); CALCIUM LEVEL 8.6 MG/DL (8.8-10.2); CARBON DIOXIDE LEVEL 26 MEQ/L (21-32); CHLORIDE LEVEL 97 MEQ/L (98-107); CHOLESTEROL LEVEL 260 MG/DL (<200); CHOLESTEROL RISK RATIO 3.714 (<5); GLOMERULAR FILTRATION RATE > 60.0 (>45); GLUCOSE, FASTING 78 MG/DL (70-100); HDL CHOLESTEROL 70 MG/DL (>40); LDL CHOLESTEROL 116 MG/DL (<100); NON-HDL-C 190 MG/DL; POTASSIUM SERUM 3.8 MEQ/L (3.5-5.1); SODIUM LEVEL 133 MEQ/L (136-145); TOTAL PROTEIN 7.5 GM/DL (6.4-8.2); TRIGLYCERIDES LEVEL 372 MG/DL (<150)
== END ==
LOC: M SFHCADAM 09:50
PROVIDERS: ATTEND Physician Assistant
DX: I10 Essential (primary) hypertension (principal); E78.2 Mixed hyperlipidemia; E03.9 Hypothyroidism, unspecified

== ENCOUNTER 2019-01-25 08:52 | Outpatient (CLI) | payer MEDICARE, OTHER ==
[~2019-01-25] VITALS: Ht 154.9 cm; Wt 72.5 kg
[~2019-01-25 08:52] MED LIST changes: -OMEP40CA2 PO; +OMEP40CA97 PO
[2019-01-25 08:55] VITALS: BP 141/86
[2019-01-25] MEDS ORDERED: NS 1,000 ML IV SCH (09:15)
[2019-01-25] MEDS ORDERED: FILTER 1.2 MICRON (ADULT TPN/MANNITOL/REMICADE) XX ONE (09:15)
[2019-01-25] MEDS ORDERED: ACETAMINOPHEN 650MG PO PRIOR TO INFUSION PO ONE (09:15)
[2019-01-25] MEDS ORDERED: inFLIXimab INJECTION 400 MG in NS 210 ML IV ONE (09:30)
== END 2019-01-25 12:00 | disposition home or self-care (01) ==
LOC: M INFU 08:52
PROVIDERS: ATTEND Internal Medicine Rheumatology
DX: M05.9 Rheumatoid arthritis with rheumatoid factor, unspecified (principal)
CPT/HCPCS: 96413; 96415; J1745

== ENCOUNTER 2019-03-15 08:20 | Outpatient (CLI) | payer MEDICARE, OTHER ==
[~2019-03-15] VITALS: Ht 154.9 cm; Wt 72.5 kg
[2019-03-15] MEDS ORDERED: inFLIXimab INJECTION 400 MG in NS 210 ML IV ONE (08:30)
[2019-03-15] MEDS ORDERED: NS 1,000 ML IV SCH (08:30)
[2019-03-15 08:34] VITALS: BP 145/72
[2019-03-15 11:15] VITALS: BP 150/67
== END 2019-03-15 11:14 | disposition home or self-care (01) ==
LOC: M INFU 08:20
PROVIDERS: ATTEND Internal Medicine Rheumatology
DX: M05.9 Rheumatoid arthritis with rheumatoid factor, unspecified (principal); Z88.8 Allergy status to other drugs, medicaments and biological substances; Z88.0 Allergy status to penicillin
CPT/HCPCS: 96365; 96366; J1745

== ENCOUNTER → 2019-04-29 | Outpatient (REF) | payer MEDICARE, OTHER ==
[2019-04-29 12:47] LABS: BASO % 0.6 % (0.0-1.0); EOS # 0.1 10^3/uL (0.0-0.5); HEMATOCRIT 33.8 % (36.0-47.0); HEMOGLOBIN 10.8 g/dl (12.0-15.5); LYMPH # 1.9 10^3/uL (1.5-5.0); LYMPH % 27.2 % (24.0-44.0); MEAN CORPUSCULAR VOLUME 90.6 fl (80.0-96.0); MONO # 0.4 10^3/uL (0.0-0.8); MONO % 5.8 % (0.0-5.0); NEUTROPHILS # 4.5 10^3/uL (1.5-8.5); PLATELET COUNT, AUTOMATED 258 10^3/uL (150-450); RED BLOOD COUNT 3.73 10^6/uL (4.00-5.40)
[2019-04-29 12:55] LABS: ALBUMIN 3.6 GM/DL (3.2-5.2); ALT/SGPT 18 U/L (12-78); BILIRUBIN,TOTAL 0.3 MG/DL (0.2-1.0); BLOOD UREA NITROGEN 10 MG/DL (7-18); C REACTIVE PROTEIN QUANTITATIV < 0.30 MG/DL (0.00-0.30); CALCIUM LEVEL 8.7 MG/DL (8.8-10.2); CARBON DIOXIDE LEVEL 28 MEQ/L (21-32); CHLORIDE LEVEL 101 MEQ/L (98-107); CREATININE FOR GFR 0.93 MG/DL (0.55-1.30); GLOMERULAR FILTRATION RATE > 60.0 (>45); GLUCOSE, FASTING 92 MG/DL (70-100); POTASSIUM SERUM 3.9 MEQ/L (3.5-5.1); RHEUMATOID FACTOR QUANT < 10.0 IU/ML (<15.0); SODIUM LEVEL 135 MEQ/L (136-145); TOTAL PROTEIN 7.6 GM/DL (6.4-8.2); URIC ACID 9.2 MG/DL (2.6-6.0)
[2019-04-29 13:23] LABS: ERYTHROCYTE SEDIMENTATION RATE 57 mm/hr (0-30)
== END ==
LOC: M SFHCRHEU 10:40
PROVIDERS: ATTEND Internal Medicine
DX: M05.9 Rheumatoid arthritis with rheumatoid factor, unspecified (principal); M10.20 Drug-induced gout, unspecified site
CPT/HCPCS: 36415; 80053; 84550; 85025; 85652; 86140; 86200; 86431; G0463

== ENCOUNTER 2019-05-03 08:39 | Outpatient (CLI) | payer MEDICARE, OTHER ==
[~2019-05-03] VITALS: Ht 154.9 cm; Wt 72.5 kg
[2019-05-03 09:00] VITALS: BP 151/67
[2019-05-03] MEDS ORDERED: NS 1,000 ML IV SCH (09:00)
[2019-05-03] MEDS ORDERED: inFLIXimab INJECTION 400 MG in NS 210 ML IV ONE (09:00)
[2019-05-03 11:50] VITALS: BP 131/69
== END 2019-05-03 11:50 | disposition home or self-care (01) ==
LOC: M INFU 08:39
PROVIDERS: ATTEND Internal Medicine Rheumatology
DX: M05.9 Rheumatoid arthritis with rheumatoid factor, unspecified (principal); Z88.1 Allergy status to other antibiotic agents
CPT/HCPCS: 96413; 96415; J1745

== ENCOUNTER 2019-06-14 09:50 | Outpatient (CLI) | payer MEDICARE, OTHER ==
[~2019-06-14] VITALS: Ht 154.9 cm; Wt 72.0 kg
[2019-06-14 09:50] VITALS: BP 153/72
[2019-06-14] MEDS ORDERED: EPINEPHrine INJ 1 MG/ML 1ML VIAL IM PRN (10:00)
[2019-06-14] MEDS ORDERED: ALBUTEROL SULFATE 2.5 MG/0.5 ML INH NEB SOLN INH PRN (10:00)
[2019-06-14] MEDS ORDERED: inFLIXimab INJECTION 400 MG in NS 210 ML IV ONE (10:00)
[2019-06-14] MEDS ORDERED: methylPREDNISolone INJ 125 MG/2 ML VIAL (J2930) IV PRN (10:00)
[2019-06-14] MEDS ORDERED: diphenhydrAMINE INJ 50MG/ML VIAL (J1200) IV PRN (10:00)
[2019-06-14 13:00] VITALS: BP 151/70
== END 2019-06-14 13:00 | disposition home or self-care (01) ==
LOC: M INFU 09:50
PROVIDERS: ATTEND Internal Medicine
DX: M05.9 Rheumatoid arthritis with rheumatoid factor, unspecified (principal); Z88.1 Allergy status to other antibiotic agents
CPT/HCPCS: 96413; 96415; J1745

== ENCOUNTER → 2019-07-08 | Outpatient (REF) | payer MEDICARE, OTHER | LOC: M SFHCADAM 08:23 | PROVIDERS: ATTEND Physician Assistant | DX: M05.9 Rheumatoid arthritis with rheumatoid factor, unspecified (principal); E78.2 Mixed hyperlipidemia; E03.9 Hypothyroidism, unspecified ==

== ENCOUNTER → 2019-07-25 | Outpatient (REF) | payer MEDICARE, OTHER ==
[2019-07-25 13:42] LABS: BASO % 0.7 % (0.0-1.0); EOS # 0.1 10^3/uL (0.0-0.5); EOS % 2.1 % (0.0-3.0); HEMATOCRIT 33.8 % (36.0-47.0); HEMOGLOBIN 11.1 g/dl (12.0-15.5); LYMPH % 34.9 % (24.0-44.0); MEAN CORPUSCULAR HEMOGLOBIN 29.4 pg (27.0-33.0); MEAN CORPUSCULAR HGB CONC 32.8 g/dl (32.0-36.5); MEAN CORPUSCULAR VOLUME 89.7 fl (80.0-96.0); MONO # 0.4 10^3/uL (0.0-0.8); MONO % 7.7 % (0.0-5.0); NEUTROPHILS # 3.1 10^3/uL (1.5-8.5); NEUTROPHILS % 54.1 % (36.0-66.0); PLATELET COUNT, AUTOMATED 245 10^3/uL (150-450); RED BLOOD COUNT 3.77 10^6/uL (4.00-5.40); WHITE BLOOD COUNT 5.7 10^3/uL (4.0-10.0)
[2019-07-25 13:55] LABS: ALBUMIN 3.5 GM/DL (3.2-5.2); ALT/SGPT 19 U/L (12-78); BILIRUBIN,TOTAL 0.6 MG/DL (0.2-1.0); BLOOD UREA NITROGEN 11 MG/DL (7-18); C REACTIVE PROTEIN QUANTITATIV < 0.30 MG/DL (0.00-0.30); CALCIUM LEVEL 9.2 MG/DL (8.8-10.2); CARBON DIOXIDE LEVEL 27 MEQ/L (21-32); CHLORIDE LEVEL 98 MEQ/L (98-107); CHOLESTEROL LEVEL 278 MG/DL (<200); CHOLESTEROL RISK RATIO 3.861 (<5); CREATININE FOR GFR 0.96 MG/DL (0.55-1.30); GLOMERULAR FILTRATION RATE > 60.0 (>45); GLUCOSE, FASTING 79 MG/DL (70-100); HDL CHOLESTEROL 72 MG/DL (>40); LDL CHOLESTEROL 154 MG/DL (<100); NON-HDL-C 206 MG/DL; POTASSIUM SERUM 4.1 MEQ/L (3.5-5.1); SODIUM LEVEL 134 MEQ/L (136-145); TRIGLYCERIDES LEVEL 260 MG/DL (<150)
[2019-07-25 13:59] LABS: TOTAL 25(OH) VITAMIN D 40.3 NG/ML (30.0-100.0)
== END ==
LOC: M SFHCADAM 10:25
PROVIDERS: ATTEND Physician Assistant
DX: M05.9 Rheumatoid arthritis with rheumatoid factor, unspecified (principal); E78.2 Mixed hyperlipidemia; E03.9 Hypothyroidism, unspecified

== ENCOUNTER 2019-07-26 08:57 | Outpatient (CLI) | payer MEDICARE, OTHER ==
[2019-07-26] VITALS (7 sets, daily range): BP systolic 117–147; BP diastolic 58–88
[~2019-07-26] VITALS: Ht 154.9 cm; Wt 72.0 kg
[2019-07-26] MEDS ORDERED: inFLIXimab INJECTION 400 MG in NS 210 ML IV ONE (09:15)
[2019-07-26] MEDS ORDERED: ALBUTEROL SULFATE 2.5 MG/0.5 ML INH NEB SOLN INH PRN (09:15)
[2019-07-26] MEDS ORDERED: diphenhydrAMINE 50MG/ML VIAL (J1200) IV PRN (09:15)
[2019-07-26] MEDS ORDERED: methylPREDNISolone INJ 125 MG/2 ML VIAL (J2930) IV PRN (09:15)
[2019-07-26] MEDS ORDERED: EPINEPHrine INJ 1 MG/ML 1ML AMP IM PRN (09:15)
== END 2019-07-26 11:50 | disposition home or self-care (01) ==
LOC: M INFU 08:57
PROVIDERS: ATTEND Internal Medicine
DX: M06.9 Rheumatoid arthritis, unspecified (principal); Z88.0 Allergy status to penicillin
CPT/HCPCS: 96413; 96415; J1745

== ENCOUNTER 2019-09-06 10:07 | Outpatient (CLI) | payer MEDICARE, OTHER ==
[2019-09-06] VITALS (7 sets, daily range): BP systolic 133–161; BP diastolic 59–71
[~2019-09-06] VITALS: Ht 154.9 cm; Wt 72.0 kg
[2019-09-06] MEDS ORDERED: methylPREDNISolone INJ 125 MG/2 ML VIAL (J2930) IV PRN (10:30)
[2019-09-06] MEDS ORDERED: inFLIXimab INJECTION 400 MG in NS 210 ML IV ONE (10:30)
[2019-09-06] MEDS ORDERED: EPINEPHrine INJ 1 MG/ML 1ML AMP IM PRN (10:30)
[2019-09-06] MEDS ORDERED: ALBUTEROL SULFATE 2.5 MG/0.5 ML INH NEB SOLN INH PRN (10:30)
[2019-09-06] MEDS ORDERED: diphenhydrAMINE 50MG/ML VIAL (J1200) IV PRN (10:30)
== END 2019-09-06 13:00 | disposition home or self-care (01) ==
LOC: M INFU 10:07
PROVIDERS: ATTEND Internal Medicine
DX: M06.9 Rheumatoid arthritis, unspecified (principal); Z88.8 Allergy status to other drugs, medicaments and biological substances
CPT/HCPCS: 96413; 96415; J1745

== ENCOUNTER 2019-10-18 09:15 | Outpatient (CLI) | payer MEDICARE, OTHER ==
[~2019-10-18] VITALS: Ht 154.9 cm; Wt 70.6 kg
[~2019-10-18 09:15] MED LIST changes: -ASPI81TA85 PO; +ASPI81TA86 PO; -NABU-126 PO; +NABU-51 PO
[2019-10-18] MEDS ORDERED: inFLIXimab INJECTION 400 MG in NS 210 ML IV ONE (09:30)
[2019-10-18] MEDS ORDERED: ALBUTEROL SULFATE 2.5 MG/0.5 ML INH NEB SOLN INH PRN (09:45)
[2019-10-18] MEDS ORDERED: methylPREDNISolone 125MG 2ML VIAL IV PRN (09:45)
[2019-10-18] MEDS ORDERED: diphenhydrAMINE 50MG/ML VIAL (J1200) IV PRN (09:45)
[2019-10-18] MEDS ORDERED: EPINEPHrine INJ 1 MG/ML 1ML AMP IM PRN (09:45)
[2019-10-18 10:00] VITALS: BP 166/70
[2019-10-18 10:15] VITALS: BP 107/55
[2019-10-18 10:30] VITALS: BP 132/60
[2019-10-18 10:45] VITALS: BP 123/59
[2019-10-18 12:00] VITALS: BP 93/52
== END 2019-10-18 12:30 | disposition home or self-care (01) ==
LOC: M INFU 09:15
PROVIDERS: ATTEND Internal Medicine
DX: M05.9 Rheumatoid arthritis with rheumatoid factor, unspecified (principal)
CPT/HCPCS: 96413; 96415; J1745

== ENCOUNTER 2019-12-08 11:58 | Outpatient (CLI) | payer MEDICARE, OTHER ==
[2019-12-08] VITALS (9 sets, daily range): BP systolic 132–156; BP diastolic 62–77
[~2019-12-08] VITALS: Ht 154.9 cm; Wt 70.6 kg
[~2019-12-08 11:58] MED LIST changes: +ALBUTEROL SULFATE 2.5 MG/0.5 ML INH NEB SOLN INH PRN; +EPINEPHrine INJ 1 MG/ML 1ML AMP IM PRN; +NS 1,000 ML IV SCH; +diphenhydrAMINE 50MG/ML VIAL (J1200) IV PRN; +inFLIXimab INJECTION 400 MG in NS 210 ML IV ONE; +methylPREDNISolone 125MG 2ML VIAL IV PRN
[2019-12-08] MEDS ORDERED: ALBUTEROL SULFATE 2.5 MG/0.5 ML INH NEB SOLN INH PRN (12:30)
[2019-12-08] MEDS ORDERED: inFLIXimab INJECTION 400 MG in NS 210 ML IV ONE (12:30)
[2019-12-08] MEDS ORDERED: diphenhydrAMINE 50MG/ML VIAL (J1200) IV PRN (12:30)
[2019-12-08] MEDS ORDERED: NS 1,000 ML IV SCH (12:30)
[2019-12-08] MEDS ORDERED: methylPREDNISolone 125MG 2ML VIAL IV PRN (12:30)
[2019-12-08] MEDS ORDERED: EPINEPHrine INJ 1 MG/ML 1ML AMP IM PRN (12:30)
== END 2019-12-08 14:50 | disposition home or self-care (01) ==
LOC: M INFU 11:58
PROVIDERS: ATTEND Internal Medicine
DX: M05.9 Rheumatoid arthritis with rheumatoid factor, unspecified (principal)
CPT/HCPCS: 96413; 96415; J1745

== ENCOUNTER → 2020-01-12 | Outpatient (REF) | payer MEDICARE, OTHER ==
[~2020-01-12] MED LIST changes: -ALBUTEROL SULFATE 2.5 MG/0.5 ML INH NEB SOLN INH PRN; -EPINEPHrine INJ 1 MG/ML 1ML AMP IM PRN; -NS 1,000 ML IV SCH; -diphenhydrAMINE 50MG/ML VIAL (J1200) IV PRN; -inFLIXimab INJECTION 400 MG in NS 210 ML IV ONE; -methylPREDNISolone 125MG 2ML VIAL IV PRN
[2020-01-12 14:08] LABS: BASO % 0.6 % (0.0-1.0); EOS # 0.1 10^3/uL (0.0-0.5); EOS % 2.4 % (0.0-3.0); HEMOGLOBIN 10.5 g/dl (12.0-15.5); LYMPH # 1.6 10^3/uL (1.5-5.0); MEAN CORPUSCULAR HGB CONC 30.9 g/dl (32.0-36.5); MEAN CORPUSCULAR VOLUME 90.7 fl (80.0-96.0); MONO # 0.4 10^3/uL (0.0-0.8); MONO % 8.8 % (0.0-5.0); NEUTROPHILS # 2.5 10^3/uL (1.5-8.5); PLATELET COUNT, AUTOMATED 237 10^3/uL (150-450); RED BLOOD COUNT 3.75 10^6/uL (4.00-5.40); WHITE BLOOD COUNT 4.7 10^3/uL (4.0-10.0)
[2020-01-12 14:29] LABS: C REACTIVE PROTEIN QUANTITATIV 0.5 MG/DL (0.00-0.30); URIC ACID 8.8 MG/DL (2.6-6.0)
[2020-01-12 14:44] LABS: ALBUMIN 3.5 GM/DL (3.2-5.2); BILIRUBIN,TOTAL 0.6 MG/DL (0.2-1.0); CALCIUM LEVEL 8.8 MG/DL (8.8-10.2); CHOLESTEROL RISK RATIO 3.828 (<5); CREATININE FOR GFR 1.02 MG/DL (0.55-1.30); GLOMERULAR FILTRATION RATE 57.2 (>45); POTASSIUM SERUM 4.2 MEQ/L (3.5-5.1); THYROID STIMULATING HORMONE 0.837 uIU/ML (0.358-3.740); TOTAL PROTEIN 7.9 GM/DL (6.4-8.2)
[2020-01-12 15:29] LABS: ERYTHROCYTE SEDIMENTATION RATE 65 mm/hr (0-30)
[2020-01-12 17:29] LABS: TOTAL 25(OH) VITAMIN D 57.5 NG/ML (30.0-100.0)
== END ==
LOC: M SFHCADAM 10:32
PROVIDERS: ATTEND Physician Assistant
DX: E78.2 Mixed hyperlipidemia (principal); E03.9 Hypothyroidism, unspecified; E55.9 Vitamin D deficiency, unspecified

== ENCOUNTER 2020-01-19 10:44 | Outpatient (CLI) | payer MEDICARE, OTHER ==
[~2020-01-19] VITALS: Ht 154.9 cm; Wt 70.6 kg
[2020-01-19] VITALS (8 sets, daily range): BP systolic 118–140; BP diastolic 56–73
[2020-01-19] MEDS ORDERED: diphenhydrAMINE 50MG/ML VIAL (J1200) IV PRN (11:00)
[2020-01-19] MEDS ORDERED: inFLIXimab INJECTION 400 MG in NS 210 ML IV ONE (11:00)
[2020-01-19] MEDS ORDERED: EPINEPHrine INJ 1 MG/ML 1ML AMP IM PRN (11:00)
[2020-01-19] MEDS ORDERED: ALBUTEROL SULFATE 2.5 MG/0.5 ML INH NEB SOLN INH PRN (11:00)
[2020-01-19] MEDS ORDERED: methylPREDNISolone 125MG 2ML VIAL IV PRN (11:00)
== END 2020-01-19 13:40 | disposition home or self-care (01) ==
LOC: M INFU 10:44
PROVIDERS: ATTEND Internal Medicine
DX: M05.9 Rheumatoid arthritis with rheumatoid factor, unspecified (principal)
CPT/HCPCS: 96413; 96415; J1745

== ENCOUNTER 2020-03-06 08:25 | Outpatient (CLI) | payer MEDICARE, OTHER ==
[2020-03-06] VITALS (7 sets, daily range): BP systolic 129–160; BP diastolic 63–94
[~2020-03-06] VITALS: Ht 154.9 cm; Wt 70.6 kg
[~2020-03-06 08:25] MED LIST changes: +ALBUTEROL SULFATE 2.5 MG/0.5 ML INH NEB SOLN INH PRN; +EPINEPHrine INJ 1 MG/ML 1ML AMP IM PRN; +diphenhydrAMINE 50MG/ML VIAL (J1200) IV PRN; +methylPREDNISolone 125MG 2ML VIAL IV PRN
[2020-03-06] MEDS ORDERED: inFLIXimab INJECTION 400 MG in NS 210 ML IV ONE (08:30)
== END 2020-03-06 11:25 | disposition home or self-care (01) ==
LOC: M INFU 08:25
PROVIDERS: ATTEND Internal Medicine
DX: M05.9 Rheumatoid arthritis with rheumatoid factor, unspecified (principal); Z88.1 Allergy status to other antibiotic agents
CPT/HCPCS: 96413; 96415; J1745

== ENCOUNTER → 2020-04-16 | Outpatient (REF) | payer MEDICARE, OTHER ==
[~2020-04-16] MED LIST changes: -ALBUTEROL SULFATE 2.5 MG/0.5 ML INH NEB SOLN INH PRN; -EPINEPHrine INJ 1 MG/ML 1ML AMP IM PRN; -diphenhydrAMINE 50MG/ML VIAL (J1200) IV PRN; -methylPREDNISolone 125MG 2ML VIAL IV PRN
[2020-04-16 12:52] LABS: BASO % 0.6 % (0.0-1.0); EOS # 0.2 10^3/uL (0.0-0.5); EOS % 3.7 % (0.0-3.0); HEMATOCRIT 36.2 % (36.0-47.0); HEMOGLOBIN 11.2 g/dl (12.0-15.5); LYMPH # 1.7 10^3/uL (1.5-5.0); LYMPH % 32.7 % (24.0-44.0); MEAN CORPUSCULAR HEMOGLOBIN 28.2 pg (27.0-33.0); MEAN CORPUSCULAR HGB CONC 30.9 g/dl (32.0-36.5); MEAN CORPUSCULAR VOLUME 91.2 fl (80.0-96.0); MONO # 0.4 10^3/uL (0.0-0.8); MONO % 7.7 % (0.0-5.0); NEUTROPHILS # 2.9 10^3/uL (1.5-8.5); NEUTROPHILS % 54.9 % (36.0-66.0); PLATELET COUNT, AUTOMATED 259 10^3/uL (150-450); RED BLOOD COUNT 3.97 10^6/uL (4.00-5.40); WHITE BLOOD COUNT 5.2 10^3/uL (4.0-10.0)
[2020-04-16 13:30] LABS: CHOLESTEROL RISK RATIO 3.907 (<5); THYROID STIMULATING HORMONE 2.16 uIU/ML (0.358-3.740)
[2020-04-16 13:51] LABS: ERYTHROCYTE SEDIMENTATION RATE 69 mm/hr (0-30)
[2020-04-16 13:53] LABS: ALBUMIN 3.7 GM/DL (3.2-5.2); ALT/SGPT 19 U/L (12-78); BILIRUBIN,TOTAL 0.6 MG/DL (0.2-1.0); BLOOD UREA NITROGEN 12 MG/DL (7-18); CALCIUM LEVEL 9.2 MG/DL (8.8-10.2); CARBON DIOXIDE LEVEL 26 MEQ/L (21-32); CHLORIDE LEVEL 99 MEQ/L (98-107); CREATININE FOR GFR 0.93 MG/DL (0.55-1.30); GLOMERULAR FILTRATION RATE > 60.0 (>45); GLUCOSE, FASTING 83 MG/DL (70-100); POTASSIUM SERUM 4.4 MEQ/L (3.5-5.1); SODIUM LEVEL 133 MEQ/L (136-145); TOTAL PROTEIN 8.4 GM/DL (6.4-8.2)
== END ==
LOC: M SFHCADAM 09:34
PROVIDERS: ATTEND Internal Medicine
DX: M06.09 Rheumatoid arthritis without rheumatoid factor, multiple sites (principal); M1A.20X0 Drug-induced chronic gout, unspecified site, without tophus (tophi); E78.2 Mixed hyperlipidemia; E03.9 Hypothyroidism, unspecified

== ENCOUNTER 2020-04-17 08:52 | Outpatient (CLI) | payer MEDICARE, OTHER ==
[~2020-04-17] VITALS: Ht 154.9 cm; Wt 72.0 kg
[~2020-04-17 08:52] MED LIST changes: +ALBUTEROL SULFATE 2.5 MG/0.5 ML INH NEB SOLN INH PRN; +EPINEPHrine INJ 1 MG/ML 1ML AMP IM PRN; +diphenhydrAMINE 50MG/ML VIAL (J1200) IV PRN; +methylPREDNISolone 125MG 2ML VIAL IV PRN
[2020-04-17] MEDS ORDERED: inFLIXimab INJECTION 400 MG in NS 210 ML IV ONE (09:00)
[2020-04-17 09:01] VITALS: BP 138/62
[2020-04-17 09:05] VITALS: BP 138/62
[2020-04-17 11:45] VITALS: BP 126/72
[2020-04-17 12:10] VITALS: BP 151/88
== END 2020-04-17 12:10 | disposition home or self-care (01) ==
LOC: M INFU 08:52
PROVIDERS: ATTEND Internal Medicine
DX: M06.9 Rheumatoid arthritis, unspecified (principal); Z88.1 Allergy status to other antibiotic agents
CPT/HCPCS: 96413; 96415; J1745

== ENCOUNTER 2020-05-29 08:56 | Outpatient (CLI) | payer MEDICARE, OTHER ==
[~2020-05-29] VITALS: Ht 154.9 cm; Wt 72.0 kg
[2020-05-29 09:00] VITALS: BP 175/75
[2020-05-29] MEDS ORDERED: inFLIXimab INJECTION 400 MG in NS 210 ML IV ONE (09:00)
[2020-05-29 10:00] VITALS: BP 146/65
[2020-05-29 10:30] VITALS: BP 142/65
[2020-05-29 11:00] VITALS: BP 138/60
[2020-05-29 12:00] VITALS: BP 144/74
== END 2020-05-29 12:00 | disposition home or self-care (01) ==
LOC: M INFU 08:56
PROVIDERS: ATTEND Internal Medicine
DX: M06.9 Rheumatoid arthritis, unspecified (principal); Z88.1 Allergy status to other antibiotic agents
CPT/HCPCS: 96413; 96415; J1745

== ENCOUNTER 2020-07-10 08:48 | Outpatient (CLI) | payer MEDICARE, OTHER ==
[2020-07-10] VITALS (7 sets, daily range): BP systolic 136–180; BP diastolic 70–94
[~2020-07-10] VITALS: Ht 154.9 cm; Wt 72.0 kg
[~2020-07-10 08:48] MED LIST changes: -NABU-51 PO; +NABU-71 PO
[2020-07-10] MEDS ORDERED: inFLIXimab INJECTION 400 MG in NS 210 ML IV ONE (09:00)
== END 2020-07-10 12:00 | disposition home or self-care (01) ==
LOC: M INFU 08:48
PROVIDERS: ATTEND Internal Medicine
DX: M06.9 Rheumatoid arthritis, unspecified (principal); Z88.1 Allergy status to other antibiotic agents
CPT/HCPCS: 96365; 96366; J1745

== ENCOUNTER → 2020-07-21 | Outpatient (REF) | payer MEDICARE, OTHER ==
[~2020-07-21] MED LIST changes: -ALBUTEROL SULFATE 2.5 MG/0.5 ML INH NEB SOLN INH PRN; -EPINEPHrine INJ 1 MG/ML 1ML AMP IM PRN; -diphenhydrAMINE 50MG/ML VIAL (J1200) IV PRN; -methylPREDNISolone 125MG 2ML VIAL IV PRN
== END ==
LOC: M LAB REF 17:32
PROVIDERS: ATTEND Physician Assistant
DX: N39.0 Urinary tract infection, site not specified (principal)

== ENCOUNTER 2020-08-21 08:47 | Outpatient (CLI) | payer MEDICARE, OTHER ==
[~2020-08-21] VITALS: Ht 154.9 cm; Wt 72.0 kg
[~2020-08-21 08:47] MED LIST changes: +ALBUTEROL SULFATE 2.5 MG/0.5 ML INH NEB SOLN INH PRN; +EPINEPHrine INJ 1 MG/ML 1ML AMP IM PRN; +diphenhydrAMINE 50MG/ML VIAL (J1200) IV PRN; +methylPREDNISolone 125MG 2ML VIAL IV PRN
[2020-08-21 08:57] VITALS: BP 150/72
[2020-08-21] MEDS ORDERED: inFLIXimab INJECTION 400 MG in NS 210 ML IV ONE (09:00)
[2020-08-21 10:10] VITALS: BP 148/63
[2020-08-21 10:45] VITALS: BP 148/68
[2020-08-21 11:00] VITALS: BP 160/84
[2020-08-21 11:30] VITALS: BP 154/74
[2020-08-21 12:15] VITALS: BP 138/78
== END 2020-08-21 12:15 | disposition home or self-care (01) ==
LOC: M INFU 08:47
PROVIDERS: ATTEND Internal Medicine
DX: M06.9 Rheumatoid arthritis, unspecified (principal); Z88.1 Allergy status to other antibiotic agents
CPT/HCPCS: 96413; 96415; J1745

== ENCOUNTER → 2020-09-11 | Outpatient (REF) | payer MEDICARE, OTHER ==
[~2020-09-11] MED LIST changes: -ALBUTEROL SULFATE 2.5 MG/0.5 ML INH NEB SOLN INH PRN; -EPINEPHrine INJ 1 MG/ML 1ML AMP IM PRN; -diphenhydrAMINE 50MG/ML VIAL (J1200) IV PRN; -methylPREDNISolone 125MG 2ML VIAL IV PRN
[2020-09-11 13:07] LABS: BASO % 0.4 % (0.0-1.0); EOS # 0.2 10^3/uL (0.0-0.5); EOS % 2.8 % (0.0-3.0); HEMATOCRIT 34.7 % (36.0-47.0); LYMPH # 1.9 10^3/uL (1.5-5.0); LYMPH % 25.9 % (24.0-44.0); MEAN CORPUSCULAR HEMOGLOBIN 28.5 pg (27.0-33.0); MEAN CORPUSCULAR HGB CONC 31.7 g/dl (32.0-36.5); MEAN CORPUSCULAR VOLUME 89.9 fl (80.0-96.0); MONO # 0.4 10^3/uL (0.0-0.8); MONO % 5.7 % (2.0-8.0); NEUTROPHILS # 4.7 10^3/uL (1.5-8.5); NEUTROPHILS % 64.6 % (36.0-66.0); PLATELET COUNT, AUTOMATED 245 10^3/uL (150-450); RED BLOOD COUNT 3.86 10^6/uL (4.00-5.40); WHITE BLOOD COUNT 7.2 10^3/uL (4.0-10.0)
[2020-09-11 13:43] LABS: ALBUMIN 3.8 GM/DL (3.2-5.2); ALT/SGPT 18 U/L (12-78); BILIRUBIN,TOTAL 0.7 MG/DL (0.2-1.0); BLOOD UREA NITROGEN 15 MG/DL (7-18); CALCIUM LEVEL 9.5 MG/DL (8.8-10.2); CARBON DIOXIDE LEVEL 26 MEQ/L (21-32); CHLORIDE LEVEL 99 MEQ/L (98-107); GLOMERULAR FILTRATION RATE > 60.0 (>45); GLUCOSE, FASTING 81 MG/DL (70-100); POTASSIUM SERUM 4.4 MEQ/L (3.5-5.1); SODIUM LEVEL 134 MEQ/L (136-145)
[2020-09-11 14:09] LABS: ERYTHROCYTE SEDIMENTATION RATE 53 mm/hr (0-30)
== END ==
LOC: M SFHCADAM 08:00
PROVIDERS: ATTEND Physician Assistant
DX: M06.09 Rheumatoid arthritis without rheumatoid factor, multiple sites (principal)

== ENCOUNTER → 2020-09-25 | Outpatient (REF) | payer MEDICARE, OTHER ==
[~2020-09-25] MED LIST changes: +OMEP40CA4 PO; -OMEP40CA97 PO
[2020-09-25 17:24] LABS: ALBUMIN 3.7 GM/DL (3.2-5.2); ALT/SGPT 22 U/L (12-78); BILIRUBIN,TOTAL 0.5 MG/DL (0.2-1.0); BLOOD UREA NITROGEN 13 MG/DL (7-18); CALCIUM LEVEL 8.7 MG/DL (8.8-10.2); CARBON DIOXIDE LEVEL 25 MEQ/L (21-32); CHLORIDE LEVEL 101 MEQ/L (98-107); CHOLESTEROL LEVEL 279 MG/DL (<200); CHOLESTEROL RISK RATIO 5.365 (<5); GLOMERULAR FILTRATION RATE 58.4 (>39); GLUCOSE, FASTING 103 MG/DL (70-100); HDL CHOLESTEROL 52 MG/DL (>40); NON-HDL-C 227 MG/DL; POTASSIUM SERUM 3.9 MEQ/L (3.5-5.1); SODIUM LEVEL 134 MEQ/L (136-145); THYROID STIMULATING HORMONE 0.658 uIU/ML (0.358-3.740); TOTAL PROTEIN 7.9 GM/DL (6.4-8.2); TRIGLYCERIDES LEVEL 607 MG/DL (<150)
[2020-09-25 18:41] LABS: TOTAL 25(OH) VITAMIN D 32.6 NG/ML (30.0-100.0)
== END ==
LOC: M SFHCADAM 14:01
PROVIDERS: ATTEND Physician Assistant
DX: E78.2 Mixed hyperlipidemia (principal); I10 Essential (primary) hypertension; E03.9 Hypothyroidism, unspecified; E55.9 Vitamin D deficiency, unspecified
CPT/HCPCS: 80053; 80061; 82306; 84443; G0463

== ENCOUNTER 2020-10-02 08:59 | Outpatient (CLI) | payer MEDICARE, OTHER ==
[2020-10-02] VITALS (7 sets, daily range): BP systolic 133–164; BP diastolic 60–71
[~2020-10-02] VITALS: Ht 154.9 cm; Wt 72.0 kg
[~2020-10-02 08:59] MED LIST changes: +ALBUTEROL SULFATE 2.5 MG/0.5 ML INH NEB SOLN INH PRN; +EPINEPHrine INJ 1 MG/ML 1ML AMP IM PRN; +diphenhydrAMINE 50MG/ML VIAL (J1200) IV PRN; +methylPREDNISolone 125MG 2ML VIAL IV PRN
[2020-10-02] MEDS ORDERED: inFLIXimab INJECTION 400 MG in NS 210 ML IV ONE (09:00)
== END 2020-10-02 11:40 | disposition home or self-care (01) ==
LOC: M INFU 08:59
PROVIDERS: ATTEND Internal Medicine
DX: M06.9 Rheumatoid arthritis, unspecified (principal); Z88.1 Allergy status to other antibiotic agents
CPT/HCPCS: 96365; 96366; J1745

== ENCOUNTER 2020-11-13 07:42 | Outpatient (CLI) | payer MEDICARE, OTHER ==
[~2020-11-13] VITALS: Ht 154.9 cm; Wt 72.0 kg
[2020-11-13] MEDS ORDERED: inFLIXimab INJECTION 400 MG in NS 210 ML IV ONE (08:00)
[2020-11-13 08:03] VITALS: BP 140/87
[2020-11-13 08:30] VITALS: BP 143/84
[2020-11-13 09:00] VITALS: BP 142/65
[2020-11-13 09:15] VITALS: BP 144/69
[2020-11-13 10:22] VITALS: BP 145/65
== END 2020-11-13 10:25 | disposition home or self-care (01) ==
LOC: M INFU 07:42
PROVIDERS: ATTEND Internal Medicine Rheumatology
DX: M06.9 Rheumatoid arthritis, unspecified (principal); Z88.1 Allergy status to other antibiotic agents
CPT/HCPCS: 96413; 96415; J1745

== ENCOUNTER 2020-12-25 08:27 | Outpatient (CLI) | payer MEDICARE, OTHER ==
[~2020-12-25] VITALS: Ht 154.9 cm; Wt 72.0 kg
[2020-12-25] VITALS (7 sets, daily range): BP systolic 134–170; BP diastolic 63–88
[~2020-12-25 08:27] MED LIST changes: -ALBUTEROL SULFATE 2.5 MG/0.5 ML INH NEB SOLN INH PRN; -EPINEPHrine INJ 1 MG/ML 1ML AMP IM PRN; -MAXZTA PO; +TRIA75TA2 PO; -diphenhydrAMINE 50MG/ML VIAL (J1200) IV PRN; -methylPREDNISolone 125MG 2ML VIAL IV PRN
[2020-12-25] MEDS ORDERED: ALBUTEROL SULFATE 2.5 MG/0.5 ML INH NEB SOLN INH PRN (08:30)
[2020-12-25] MEDS ORDERED: EPINEPHrine INJ 1 MG/ML 1ML AMP IM PRN (08:30)
[2020-12-25] MEDS ORDERED: methylPREDNISolone 125MG 2ML VIAL IV PRN (08:30)
[2020-12-25] MEDS ORDERED: inFLIXimab INJECTION 400 MG in NS 210 ML IV ONE (08:30)
[2020-12-25] MEDS ORDERED: diphenhydrAMINE 50MG/ML VIAL (J1200) IV PRN (08:30)
== END 2020-12-25 11:45 | disposition home or self-care (01) ==
LOC: M INFU 08:27
PROVIDERS: ATTEND Internal Medicine Rheumatology
DX: M06.9 Rheumatoid arthritis, unspecified (principal); Z88.1 Allergy status to other antibiotic agents
CPT/HCPCS: 96413; 96415; J1745

== ENCOUNTER 2021-02-05 08:25 | Outpatient (CLI) | payer MEDICARE, OTHER ==
[~2021-02-05] VITALS: Ht 154.9 cm; Wt 71.2 kg
[~2021-02-05 08:25] MED LIST changes: +ALBUTEROL SULFATE 2.5 MG/0.5 ML INH NEB SOLN INH PRN; +EPINEPHrine INJ 1 MG/ML 1ML AMP IM PRN; +diphenhydrAMINE 50MG/ML VIAL (J1200) IV PRN; +methylPREDNISolone 125MG 2ML VIAL IV PRN
[2021-02-05] MEDS ORDERED: inFLIXimab INJECTION 400 MG in NS 210 ML IV ONE (08:30)
[2021-02-05 08:44] VITALS: BP 161/70
[2021-02-05 09:15] VITALS: BP 141/66
[2021-02-05 09:30] VITALS: BP 124/60
[2021-02-05 10:57] VITALS: BP 158/73
== END 2021-02-05 11:00 | disposition home or self-care (01) ==
LOC: M INFU 08:25
PROVIDERS: ATTEND Internal Medicine Rheumatology
DX: M06.9 Rheumatoid arthritis, unspecified (principal); Z88.1 Allergy status to other antibiotic agents
CPT/HCPCS: 96413; 96415; J1745

== ENCOUNTER → 2021-02-12 | Outpatient (CLI) | payer MEDICARE, OTHER ==
[~2021-02-12] MED LIST changes: -ALBUTEROL SULFATE 2.5 MG/0.5 ML INH NEB SOLN INH PRN; -EPINEPHrine INJ 1 MG/ML 1ML AMP IM PRN; -diphenhydrAMINE 50MG/ML VIAL (J1200) IV PRN; -methylPREDNISolone 125MG 2ML VIAL IV PRN
--- NOTE | 2021-02-12 09:24 | REP ---
INDICATION: RHEMATOID ARTHRITIS OF MULTIPLE SITES W/NEG RHEMATOID FACTOR COMPARISON: None. TECHNIQUE: AP, lateral, bilateral oblique views right and left hand. FINDINGS: Moderate generalized osteoarthritic degenerative changes are appreciated. Findings include subchondral sclerosis, elements of joint space narrowing, and marginal spurring primarily involving the interphalangeal joints, 1st through 3rd metacarpophalangeal joints and the 1st carpometacarpal joints. No significant periarticular calcifications, erosive changes or loose bodies are identified to suggest inflammatory arthritic disease by radiographic evaluation. There is no evidence for acute fracture or dislocation. IMPRESSION: Findings most compatible with moderate bilateral osteoarthritic degenerative changes.. <Electronically signed by Evangelista Campbell > 02/12/21 0935
--- NOTE | 2021-02-12 09:38 | REP ---
INDICATION: RHEMATOID ARTHRITIS OF MULTIPLE SITES W/NEG RHEMATOID FACTOR COMPARISON: None. TECHNIQUE: AP, lateral, bilateral oblique views right and left foot. FINDINGS: Generalized advanced diffuse osteoarthritic degenerative changes are appreciated bilaterally. Specifically, the left foot demonstrates most pronounced arthritic degenerative changes involving the midfoot including tarsal and tarsometatarsal joint changes including joint space narrowing, subchondral sclerosis/heterogeneity with scattered cystic changes and osteophytosis. Findings are slightly less pronounced involving the tarsometatarsal and interphalangeal joints. The right foot demonstrates slightly milder degenerative changes to the midfoot along with more prominent arthritic degenerative changes noted at the 1st tarsometatarsal joint including bulky osteophyte formation at the tarsal head and mild chronic subluxation/varus angulation. No obvious acute fracture or dislocation identified bilaterally. No evidence for subcutaneous emphysema or foreign body. IMPRESSION: Advanced diffuse presumed osteoarthritic degenerative changes noted bilaterally. <Electronically signed by Evangelista Campbell > 02/12/21 0949
== END ==
LOC: M ADAMS 08:24
PROVIDERS: ATTEND Internal Medicine Rheumatology
DX: M06.09 Rheumatoid arthritis without rheumatoid factor, multiple sites (principal); M19.071 Primary osteoarthritis, right ankle and foot; M19.072 Primary osteoarthritis, left ankle and foot; M19.041 Primary osteoarthritis, right hand; M19.042 Primary osteoarthritis, left hand; M1A.49X0 Other secondary chronic gout, multiple sites, without tophus (tophi)

== ENCOUNTER → 2021-02-12 | Outpatient (REF) | payer MEDICARE, OTHER ==
[2021-02-12 12:16] LABS: BASO # 0.1 10^3/uL (0.0-0.2); BASO % 0.7 % (0.0-1.0); EOS # 0.2 10^3/uL (0.0-0.5); EOS % 3.2 % (0.0-3.0); HEMATOCRIT 32.9 % (36.0-47.0); HEMOGLOBIN 10.5 g/dl (12.0-15.5); LYMPH # 1.8 10^3/uL (1.5-5.0); LYMPH % 26.7 % (24.0-44.0); MEAN CORPUSCULAR HEMOGLOBIN 28.5 pg (27.0-33.0); MEAN CORPUSCULAR HGB CONC 31.9 g/dl (32.0-36.5); MEAN CORPUSCULAR VOLUME 89.4 fl (80.0-96.0); MONO # 0.5 10^3/uL (0.0-0.8); MONO % 6.9 % (2.0-8.0); NEUTROPHILS # 4.2 10^3/uL (1.5-8.5); NEUTROPHILS % 62.4 % (36.0-66.0); PLATELET COUNT, AUTOMATED 238 10^3/uL (150-450); RED BLOOD COUNT 3.68 10^6/uL (4.00-5.40); WHITE BLOOD COUNT 6.8 10^3/uL (4.0-10.0)
[2021-02-12 12:45] LABS: ALBUMIN 3.5 GM/DL (3.2-5.2); ALT/SGPT 18 U/L (12-78); BILIRUBIN,TOTAL 0.5 MG/DL (0.2-1.0); BLOOD UREA NITROGEN 13 MG/DL (7-18); C REACTIVE PROTEIN QUANTITATIV 0.31 MG/DL (0.00-0.30); CARBON DIOXIDE LEVEL 28 MEQ/L (21-32); CHLORIDE LEVEL 97 MEQ/L (98-107); CREATININE FOR GFR 0.86 MG/DL (0.55-1.30); GLOMERULAR FILTRATION RATE > 60.0 (>39); GLUCOSE, FASTING 82 MG/DL (70-100); POTASSIUM SERUM 4.6 MEQ/L (3.5-5.1); SODIUM LEVEL 132 MEQ/L (136-145); TOTAL PROTEIN 7.9 GM/DL (6.4-8.2); URIC ACID 10.4 MG/DL (2.6-6.0)
[2021-02-12 14:05] LABS: ERYTHROCYTE SEDIMENTATION RATE 53 mm/hr (0-30)
== END ==
LOC: M SFHCADAM 08:02
PROVIDERS: ATTEND Internal Medicine Rheumatology
DX: M06.09 Rheumatoid arthritis without rheumatoid factor, multiple sites (principal); M1A.49X0 Other secondary chronic gout, multiple sites, without tophus (tophi)

== ENCOUNTER 2021-03-19 07:55 | Outpatient (CLI) | payer MEDICARE, OTHER ==
[~2021-03-19] VITALS: Ht 154.9 cm; Wt 71.2 kg
[~2021-03-19 07:55] MED LIST changes: +ALBUTEROL SULFATE 2.5 MG/0.5 ML INH NEB SOLN INH PRN; +EPINEPHrine INJ 1 MG/ML 1ML AMP IM PRN; +diphenhydrAMINE 50MG/ML VIAL (J1200) IV PRN; +methylPREDNISolone 125MG 2ML VIAL IV PRN
[2021-03-19 07:59] VITALS: BP 175/90
[2021-03-19] MEDS ORDERED: inFLIXimab INJECTION 400 MG in NS 210 ML IV ONE (08:00)
[2021-03-19] MEDS ORDERED: NS 1,000 ML IV SCH (08:00)
[2021-03-19 08:45] VITALS: BP 145/82
[2021-03-19 09:00] VITALS: BP 156/74
[2021-03-19 09:30] VITALS: BP 150/65
[2021-03-19 10:00] VITALS: BP 148/78
[2021-03-19 10:45] VITALS: BP 142/72
== END 2021-03-19 10:45 | disposition home or self-care (01) ==
LOC: M INFU 07:55
PROVIDERS: ATTEND Internal Medicine Rheumatology
DX: M06.9 Rheumatoid arthritis, unspecified (principal); Z88.1 Allergy status to other antibiotic agents
CPT/HCPCS: 96413; 96415; J1745

== ENCOUNTER → 2021-03-26 | Outpatient (REF) | payer MEDICARE, OTHER ==
[~2021-03-26] MED LIST changes: -ALBUTEROL SULFATE 2.5 MG/0.5 ML INH NEB SOLN INH PRN; -EPINEPHrine INJ 1 MG/ML 1ML AMP IM PRN; -diphenhydrAMINE 50MG/ML VIAL (J1200) IV PRN; -methylPREDNISolone 125MG 2ML VIAL IV PRN
[2021-03-26 13:27] LABS: ALBUMIN 3.6 GM/DL (3.2-5.2); ALT/SGPT 19 U/L (12-78); BILIRUBIN,TOTAL 0.4 MG/DL (0.2-1.0); BLOOD UREA NITROGEN 15 MG/DL (7-18); CALCIUM LEVEL 9.3 MG/DL (8.8-10.2); CARBON DIOXIDE LEVEL 27 MEQ/L (21-32); CHLORIDE LEVEL 100 MEQ/L (98-107); CHOLESTEROL LEVEL 252 MG/DL (<200); CHOLESTEROL RISK RATIO 4.131 (<5); CREATININE FOR GFR 0.88 MG/DL (0.55-1.30); GLOMERULAR FILTRATION RATE > 60.0 (>39); GLUCOSE, FASTING 84 MG/DL (70-100); HDL CHOLESTEROL 61 MG/DL (>40); LDL CHOLESTEROL 140 MG/DL (<100); NON-HDL-C 191 MG/DL; POTASSIUM SERUM 4.5 MEQ/L (3.5-5.1); SODIUM LEVEL 136 MEQ/L (136-145); THYROID STIMULATING HORMONE 0.441 uIU/ML (0.358-3.740); TOTAL PROTEIN 7.9 GM/DL (6.4-8.2); TRIGLYCERIDES LEVEL 257 MG/DL (<150)
== END ==
LOC: M SFHCADAM 08:04
PROVIDERS: ATTEND Physician Assistant
DX: M06.09 Rheumatoid arthritis without rheumatoid factor, multiple sites (principal); E78.2 Mixed hyperlipidemia; E03.9 Hypothyroidism, unspecified

== ENCOUNTER 2021-04-30 08:02 | Outpatient (CLI) | payer MEDICARE, OTHER ==
[~2021-04-30] VITALS: Ht 154.9 cm; Wt 70.4 kg
[~2021-04-30 08:02] MED LIST changes: +ALBUTEROL SULFATE 2.5 MG/0.5 ML INH NEB SOLN INH PRN; +EPINEPHrine INJ 1 MG/ML 1ML AMP IM PRN; +NS 1,000 ML IV SCH; +diphenhydrAMINE 50MG/ML VIAL (J1200) IV PRN; +inFLIXimab INJECTION 400 MG in NS 210 ML IV ONE; +methylPREDNISolone 125MG 2ML VIAL IV PRN
[2021-04-30 09:00] VITALS: BP 162/76
[2021-04-30 09:15] VITALS: BP 167/77
[2021-04-30 09:30] VITALS: BP 150/67
[2021-04-30 10:15] VITALS: BP 144/71
[2021-04-30 11:02] VITALS: BP 148/68
== END 2021-04-30 11:00 | disposition home or self-care (01) ==
LOC: M INFU 08:02
PROVIDERS: ATTEND Internal Medicine Rheumatology
DX: M06.9 Rheumatoid arthritis, unspecified (principal); Z88.1 Allergy status to other antibiotic agents
CPT/HCPCS: 96413; 96415; J1745

== ENCOUNTER → 2021-06-07 | Outpatient (REF) | payer MEDICARE, OTHER ==
[~2021-06-07] MED LIST changes: -ALBUTEROL SULFATE 2.5 MG/0.5 ML INH NEB SOLN INH PRN; -EPINEPHrine INJ 1 MG/ML 1ML AMP IM PRN; -NS 1,000 ML IV SCH; -diphenhydrAMINE 50MG/ML VIAL (J1200) IV PRN; -inFLIXimab INJECTION 400 MG in NS 210 ML IV ONE; -methylPREDNISolone 125MG 2ML VIAL IV PRN
[2021-06-07 14:50] LABS: BASO % 0.6 % (0.0-1.0); EOS # 0.3 10^3/uL (0.0-0.5); EOS % 3.9 % (0.0-3.0); HEMATOCRIT 35.2 % (36.0-47.0); HEMOGLOBIN 11.4 g/dl (12.0-15.5); LYMPH # 1.9 10^3/uL (1.5-5.0); LYMPH % 28.6 % (24.0-44.0); MEAN CORPUSCULAR HEMOGLOBIN 27.7 pg (27.0-33.0); MEAN CORPUSCULAR HGB CONC 32.4 g/dl (32.0-36.5); MEAN CORPUSCULAR VOLUME 85.6 fl (80.0-96.0); MONO # 0.5 10^3/uL (0.0-0.8); MONO % 7.4 % (2.0-8.0); NEUTROPHILS % 58.9 % (36.0-66.0); PLATELET COUNT, AUTOMATED 310 10^3/uL (150-450); RED BLOOD COUNT 4.11 10^6/uL (4.00-5.40); WHITE BLOOD COUNT 6.8 10^3/uL (4.0-10.0)
[2021-06-07 15:13] LABS: ERYTHROCYTE SEDIMENTATION RATE 59 mm/hr (0-30)
[2021-06-07 15:25] LABS: ALBUMIN 4.1 GM/DL (3.2-5.2); ALT/SGPT 24 U/L (12-78); BILIRUBIN,TOTAL 0.5 MG/DL (0.2-1.0); BLOOD UREA NITROGEN 13 MG/DL (7-18); C REACTIVE PROTEIN QUANTITATIV 0.63 MG/DL (0.00-0.30); CALCIUM LEVEL 9.5 MG/DL (8.8-10.2); CARBON DIOXIDE LEVEL 30 MEQ/L (21-32); CHLORIDE LEVEL 90 MEQ/L (98-107); CREATININE FOR GFR 0.82 MG/DL (0.55-1.30); GLOMERULAR FILTRATION RATE > 60.0 (>39); GLUCOSE, FASTING 83 MG/DL (70-100); POTASSIUM SERUM 4.1 MEQ/L (3.5-5.1); SODIUM LEVEL 127 MEQ/L (136-145); TOTAL PROTEIN 8.7 GM/DL (6.4-8.2); URIC ACID 6.6 MG/DL (2.6-6.0)
== END ==
LOC: M SFHCADAM 10:08
PROVIDERS: ATTEND Internal Medicine Rheumatology
DX: M06.09 Rheumatoid arthritis without rheumatoid factor, multiple sites (principal); M1A.49X0 Other secondary chronic gout, multiple sites, without tophus (tophi); Z79.899 Other long term (current) drug therapy

== ENCOUNTER 2021-06-11 07:54 | Outpatient (CLI) | payer MEDICARE, OTHER ==
[~2021-06-11] VITALS: Ht 154.9 cm; Wt 70.4 kg
[~2021-06-11 07:54] MED LIST changes: +ALBUTEROL SULFATE 2.5 MG/0.5 ML INH NEB SOLN INH PRN; +EPINEPHrine INJ 1 MG/ML 1ML AMP IM PRN; +diphenhydrAMINE 50MG/ML VIAL (J1200) IV PRN; +methylPREDNISolone 125MG 2ML VIAL IV PRN
[2021-06-11] MEDS ORDERED: NS 1,000 ML IV SCH (08:00)
[2021-06-11] MEDS ORDERED: inFLIXimab INJECTION 400 MG in NS 210 ML IV ONE (08:00)
[2021-06-11 08:10] VITALS: BP 177/75
[2021-06-11 08:45] VITALS: BP 162/80
[2021-06-11 09:00] VITALS: BP 170/77
[2021-06-11 09:30] VITALS: BP 174/81
[2021-06-11 10:00] VITALS: BP 164/71
[2021-06-11 10:40] VITALS: BP 169/72
== END 2021-06-11 10:45 | disposition home or self-care (01) ==
LOC: M INFU 07:54
PROVIDERS: ATTEND Internal Medicine Rheumatology
DX: M06.9 Rheumatoid arthritis, unspecified (principal); Z88.1 Allergy status to other antibiotic agents
CPT/HCPCS: 96413; 96415; J1745

== ENCOUNTER 2021-07-23 08:40 | Outpatient (CLI) | payer MEDICARE, OTHER ==
[~2021-07-23] VITALS: Ht 154.9 cm; Wt 70.4 kg
[~2021-07-23 08:40] MED LIST changes: +NS 1,000 ML IV SCH; +inFLIXimab INJECTION 400 MG in NS 210 ML IV ONE
[2021-07-23 09:03] VITALS: BP 148/70
[2021-07-23 10:15] VITALS: BP 143/68
[2021-07-23 10:45] VITALS: BP 146/82
[2021-07-23 12:00] VITALS: BP 138/74
== END 2021-07-23 12:00 | disposition home or self-care (01) ==
LOC: M INFU 08:40
PROVIDERS: ATTEND Internal Medicine Rheumatology
DX: M06.9 Rheumatoid arthritis, unspecified (principal); Z88.1 Allergy status to other antibiotic agents
CPT/HCPCS: 96413; 96415; J1745

== ENCOUNTER → 2021-08-08 | Outpatient (CLI) | payer MEDICARE, OTHER ==
[~2021-08-08] MED LIST changes: -ALBUTEROL SULFATE 2.5 MG/0.5 ML INH NEB SOLN INH PRN; +CALC-176 PO; +CALC250T PO; +D3 H2000 PO; +ECOT81TA5 PO; -EPINEPHrine INJ 1 MG/ML 1ML AMP IM PRN; +LEVO50TA5 PO; -NS 1,000 ML IV SCH; +OMEP-173 PO; +VITA500C24 PO; +VITMTA PO; -diphenhydrAMINE 50MG/ML VIAL (J1200) IV PRN; -inFLIXimab INJECTION 400 MG in NS 210 ML IV ONE; -methylPREDNISolone 125MG 2ML VIAL IV PRN
== END ==
LOC: M LABSMTC 11:01
PROVIDERS: ATTEND Anesthesiology
DX: Z01.812 Encounter for preprocedural laboratory examination (principal); Z20.822 Contact with and (suspected) exposure to COVID-19

== ENCOUNTER 2021-09-03 08:30 | Outpatient (CLI) | payer MEDICARE, OTHER ==
[~2021-09-03] VITALS: Ht 154.9 cm; Wt 70.4 kg
[~2021-09-03 08:30] MED LIST changes: +ALBUTEROL SULFATE 2.5 MG/0.5 ML INH NEB SOLN INH PRN; +EPINEPHrine INJ 1 MG/ML 1ML AMP IM PRN; +NS 1,000 ML IV SCH; +TRIA75TA10 PO; -TRIA75TA2 PO; +diphenhydrAMINE 50MG/ML VIAL (J1200) IV PRN; +inFLIXimab INJECTION 400 MG in NS 210 ML IV ONE; +methylPREDNISolone 125MG 2ML VIAL IV PRN
[2021-09-03 08:54] VITALS: BP 154/68
[2021-09-03 09:45] VITALS: BP 140/63
[2021-09-03 10:15] VITALS: BP 123/71
[2021-09-03 11:00] VITALS: BP 137/60
== END 2021-09-03 12:10 | disposition home or self-care (01) ==
LOC: M INFU 08:30
PROVIDERS: ATTEND Internal Medicine Rheumatology
DX: M06.9 Rheumatoid arthritis, unspecified (principal); Z88.0 Allergy status to penicillin
CPT/HCPCS: 96413; 96415; J1745

== ENCOUNTER → 2021-09-17 | Outpatient (REF) | payer MEDICARE, OTHER ==
[~2021-09-17] MED LIST changes: -ALBUTEROL SULFATE 2.5 MG/0.5 ML INH NEB SOLN INH PRN; -EPINEPHrine INJ 1 MG/ML 1ML AMP IM PRN; -NS 1,000 ML IV SCH; -diphenhydrAMINE 50MG/ML VIAL (J1200) IV PRN; -inFLIXimab INJECTION 400 MG in NS 210 ML IV ONE; -methylPREDNISolone 125MG 2ML VIAL IV PRN
[2021-09-17 12:48] LABS: BASO % 0.6 % (0.0-1.0); EOS # 0.4 10^3/uL (0.0-0.5); EOS % 5.9 % (0.0-3.0); HEMATOCRIT 34.1 % (36.0-47.0); HEMOGLOBIN 10.8 g/dl (12.0-15.5); LYMPH # 2.1 10^3/uL (1.5-5.0); MEAN CORPUSCULAR HEMOGLOBIN 28.2 pg (27.0-33.0); MEAN CORPUSCULAR HGB CONC 31.7 g/dl (32.0-36.5); MONO # 0.4 10^3/uL (0.0-0.8); MONO % 6.5 % (2.0-8.0); NEUTROPHILS # 3.5 10^3/uL (1.5-8.5); NEUTROPHILS % 54.7 % (36.0-66.0); PLATELET COUNT, AUTOMATED 261 10^3/uL (150-450); RED BLOOD COUNT 3.83 10^6/uL (4.00-5.40); WHITE BLOOD COUNT 6.5 10^3/uL (4.0-10.0)
[2021-09-17 13:33] LABS: ALBUMIN 3.6 GM/DL (3.2-5.2); ALT/SGPT 18 U/L (12-78); BILIRUBIN,TOTAL 0.4 MG/DL (0.2-1.0); BLOOD UREA NITROGEN 16 MG/DL (7-18); C REACTIVE PROTEIN QUANTITATIV 2.48 MG/DL (0.00-0.30); CALCIUM LEVEL 9.8 MG/DL (8.8-10.2); CARBON DIOXIDE LEVEL 27 MEQ/L (21-32); CHLORIDE LEVEL 100 MEQ/L (98-107); CREATININE FOR GFR 0.85 MG/DL (0.55-1.30); GLOMERULAR FILTRATION RATE > 60.0 (>39); GLUCOSE, FASTING 92 MG/DL (70-100); POTASSIUM SERUM 4.8 MEQ/L (3.5-5.1); SODIUM LEVEL 135 MEQ/L (136-145)
[2021-09-17 13:42] LABS: ERYTHROCYTE SEDIMENTATION RATE 67 mm/hr (0-30)
== END ==
LOC: M SFHCADAM 08:38
PROVIDERS: ATTEND Physician Assistant
DX: M06.09 Rheumatoid arthritis without rheumatoid factor, multiple sites (principal); M1A.49X0 Other secondary chronic gout, multiple sites, without tophus (tophi); M89.49 Other hypertrophic osteoarthropathy, multiple sites; Z79.899 Other long term (current) drug therapy

== ENCOUNTER → 2021-09-29 | Outpatient (CLI) | payer MEDICARE, OTHER | LOC: M LABSMTC 09:32 | PROVIDERS: ATTEND Anesthesiology | DX: Z01.812 Encounter for preprocedural laboratory examination (principal); Z20.822 Contact with and (suspected) exposure to COVID-19 ==

== ENCOUNTER 2021-10-03 08:57 | Day surgery (SDC) | payer MEDICARE, OTHER ==
[~2021-10-03] VITALS: Ht 149.9 cm; Wt 69.4 kg
[~2021-10-03 08:57] MED LIST changes: +LIDOCAINE 1% SDV 5ML VIAL As Ordered ONE; +LR 1,000 ML IV SCH; +MAXITROL OPHTH SUSP 5 ML As Ordered ONE; +MIDAZOLAM INJ 2MG/2ML VIAL (J2250 PER 1MG) As Ordered ONE
[2021-10-03] MEDS: TETRACAINE 0.5% OPHTH SOLN 4ML OS SCH ×2 (09:38→09:40)
[2021-10-03] MEDS: CYCLOPENTOLATE 1% OPHTH SOLN 2 ML BTL OS SCH ×3 (09:41→09:52)
[2021-10-03] MEDS: PHENYLEPHRINE 2.5% OPHTH SOL 2ML OS SCH ×3 (09:41→09:52)
[2021-10-03] MEDS: FLURBIPROFEN 0.03% OPHTH SOLN 2.5 ML OS SCH ×3 (09:41→09:52)
[2021-10-03 11:31] VITALS: BP 195/79
== END 2021-10-03 12:22 | disposition home or self-care (01) ==
LOC: M SDC 08:57
PROVIDERS: ATTEND Ophthalmology
DX: H25.12 Age-related nuclear cataract, left eye (principal); I10 Essential (primary) hypertension; E78.5 Hyperlipidemia, unspecified; M10.9 Gout, unspecified; E03.9 Hypothyroidism, unspecified; K21.9 Gastro-esophageal reflux disease without esophagitis; Z79.899 Other long term (current) drug therapy; I25.2 Old myocardial infarction
CPT/HCPCS: 66984; J2250; V2632

== ENCOUNTER 2021-10-15 07:40 | Outpatient (CLI) | payer MEDICARE, OTHER ==
[~2021-10-15] VITALS: Ht 154.9 cm; Wt 70.0 kg
[~2021-10-15 07:40] MED LIST changes: +ALBUTEROL SULFATE 2.5 MG/0.5 ML INH NEB SOLN INH PRN; +EPINEPHrine INJ 1 MG/ML 1ML AMP IM PRN; -LIDOCAINE 1% SDV 5ML VIAL As Ordered ONE; -LR 1,000 ML IV SCH; -MAXITROL OPHTH SUSP 5 ML As Ordered ONE; -MIDAZOLAM INJ 2MG/2ML VIAL (J2250 PER 1MG) As Ordered ONE; +diphenhydrAMINE 50MG/ML VIAL (J1200) IV PRN; +methylPREDNISolone 125MG 2ML VIAL IV PRN
[2021-10-15 07:56] VITALS: BP 137/67
[2021-10-15] MEDS ORDERED: inFLIXimab INJECTION 400 MG in NS 210 ML IV ONE (08:00)
[2021-10-15 09:20] VITALS: BP 141/69
[2021-10-15 09:50] VITALS: BP 146/68
[2021-10-15 10:40] VITALS: BP 145/68
== END 2021-10-15 10:35 | disposition home or self-care (01) ==
LOC: M INFU 07:40
PROVIDERS: ATTEND Internal Medicine Rheumatology
DX: M06.9 Rheumatoid arthritis, unspecified (principal)
CPT/HCPCS: 96413; 96415; J1745

== ENCOUNTER 2021-11-27 07:00 | Outpatient (CLI) | payer MEDICARE, OTHER ==
[~2021-11-27] VITALS: Ht 154.9 cm; Wt 69.3 kg
[~2021-11-27 07:00] MED LIST changes: +inFLIXimab INJECTION 600 MG in NS 190 ML IV ONE
[2021-11-27] MEDS ORDERED: ALBUTEROL SULFATE 2.5 MG/0.5 ML INH NEB SOLN INH PRN (07:01)
[2021-11-27] MEDS ORDERED: methylPREDNISolone 125MG 2ML VIAL IV PRN (07:01)
[2021-11-27] MEDS ORDERED: EPINEPHrine INJ 1 MG/ML 1ML AMP IM PRN (07:01)
[2021-11-27] MEDS ORDERED: diphenhydrAMINE 50MG/ML VIAL (J1200) IV PRN (07:01)
[2021-11-27 07:15] VITALS: BP 193/93
[2021-11-27 08:30] VITALS: BP 134/63
[2021-11-27 09:00] VITALS: BP 146/67
[2021-11-27 09:30] VITALS: BP 137/61
[2021-11-27 10:20] VITALS: BP 133/80
== END 2021-11-27 10:20 | disposition home or self-care (01) ==
LOC: M INFU 07:00
PROVIDERS: ATTEND Internal Medicine Rheumatology
DX: M06.9 Rheumatoid arthritis, unspecified (principal)
CPT/HCPCS: 96413; 96415; J1745

== ENCOUNTER → 2021-11-27 | Outpatient (CLI) | payer MEDICARE, OTHER ==
[~2021-11-27] VITALS: Ht 154.9 cm; Wt 69.3 kg
[~2021-11-27] MED LIST changes: -ALBUTEROL SULFATE 2.5 MG/0.5 ML INH NEB SOLN INH PRN; -EPINEPHrine INJ 1 MG/ML 1ML AMP IM PRN; -diphenhydrAMINE 50MG/ML VIAL (J1200) IV PRN; -methylPREDNISolone 125MG 2ML VIAL IV PRN
== END ==
LOC: M INFU 07:15
PROVIDERS: ATTEND Internal Medicine Rheumatology
DX: M06.9 Rheumatoid arthritis, unspecified (principal)

== ENCOUNTER 2021-12-31 07:50 | Outpatient (CLI) | payer MEDICARE, OTHER ==
[~2021-12-31] VITALS: Ht 154.9 cm; Wt 69.3 kg
[~2021-12-31 07:50] MED LIST changes: -inFLIXimab INJECTION 600 MG in NS 190 ML IV ONE
[2021-12-31 07:55] VITALS: BP 176/78
[2021-12-31] MEDS ORDERED: inFLIXimab INJECTION 600 MG in NS 190 ML IV ONE (08:00)
[2021-12-31 09:00] VITALS: BP 170/80
[2021-12-31 09:14] VITALS: BP 178/83
[2021-12-31 10:15] VITALS: BP 168/78
[2021-12-31 10:45] VITALS: BP 162/78
== END 2021-12-31 10:45 | disposition home or self-care (01) ==
LOC: M INFU 07:50
PROVIDERS: ATTEND Internal Medicine Rheumatology
DX: M06.9 Rheumatoid arthritis, unspecified (principal)
CPT/HCPCS: 96413; 96415; J1745

== ENCOUNTER → 2022-01-12 | Outpatient (CLI) | payer MEDICARE, OTHER ==
[~2022-01-12] MED LIST changes: +ALLO100T PO; +COLC0.6T47 PO
== END ==
LOC: M LABSMTC 10:27
PROVIDERS: ATTEND Anesthesiology
DX: Z01.812 Encounter for preprocedural laboratory examination (principal); Z11.52 Encounter for screening for COVID-19

== ENCOUNTER 2022-02-04 09:00 | Outpatient (CLI) | payer MEDICARE, OTHER ==
[~2022-02-04] VITALS: Ht 154.9 cm; Wt 69.3 kg
[~2022-02-04 09:00] MED LIST changes: +ALBUTEROL SULFATE 2.5 MG/0.5 ML INH NEB SOLN INH PRN; +EPINEPHrine INJ 1 MG/ML 1ML AMP IM PRN; +NS 1,000 ML IV SCH; +diphenhydrAMINE 50MG/ML VIAL IV PRN; +inFLIXimab INJECTION 600 MG in NS 190 ML IV ONE; +methylPREDNISolone 125MG 2ML VIAL IV PRN
[2022-02-04 09:23] VITALS: BP 140/104
[2022-02-04 12:00] VITALS: BP 157/77
== END 2022-02-04 12:00 | disposition home or self-care (01) ==
LOC: M INFU 09:00
PROVIDERS: ATTEND Internal Medicine Rheumatology
DX: M05.9 Rheumatoid arthritis with rheumatoid factor, unspecified (principal)
CPT/HCPCS: 96413; 96415; J1745

== ENCOUNTER 2022-03-11 08:45 | Outpatient (CLI) | payer MEDICARE, OTHER ==
[~2022-03-11] VITALS: Ht 154.9 cm; Wt 69.0 kg
[2022-03-11 08:59] VITALS: BP 165/77
[2022-03-11 11:41] VITALS: BP 139/67
== END 2022-03-11 11:40 | disposition home or self-care (01) ==
LOC: M INFU 08:45
PROVIDERS: ATTEND Internal Medicine Rheumatology
DX: M06.9 Rheumatoid arthritis, unspecified (principal)
CPT/HCPCS: 96413; 96415; J1745

== ENCOUNTER → 2022-04-10 | Outpatient (REF) | payer MEDICARE, OTHER ==
[~2022-04-10] MED LIST changes: -ALBUTEROL SULFATE 2.5 MG/0.5 ML INH NEB SOLN INH PRN; -EPINEPHrine INJ 1 MG/ML 1ML AMP IM PRN; -NS 1,000 ML IV SCH; -diphenhydrAMINE 50MG/ML VIAL IV PRN; -inFLIXimab INJECTION 600 MG in NS 190 ML IV ONE; -methylPREDNISolone 125MG 2ML VIAL IV PRN
[2022-04-10 14:03] LABS: BASO # 0.1 10^3/uL (0.0-0.2); BASO % 0.7 % (0.0-1.0); EOS # 0.4 10^3/uL (0.0-0.5); EOS % 4.9 % (0.0-3.0); HEMATOCRIT 35.5 % (36.0-47.0); HEMOGLOBIN 11.2 g/dl (12.0-15.5); LYMPH % 28.4 % (24.0-44.0); MEAN CORPUSCULAR HEMOGLOBIN 27.9 pg (27.0-33.0); MEAN CORPUSCULAR HGB CONC 31.5 g/dl (32.0-36.5); MEAN CORPUSCULAR VOLUME 88.5 fl (80.0-96.0); MONO # 0.5 10^3/uL (0.0-0.8); MONO % 7.2 % (2.0-8.0); NEUTROPHILS # 4.2 10^3/uL (1.5-8.5); NEUTROPHILS % 58.5 % (36.0-66.0); PLATELET COUNT, AUTOMATED 249 10^3/uL (150-450); RED BLOOD COUNT 4.01 10^6/uL (4.00-5.40); WHITE BLOOD COUNT 7.1 10^3/uL (4.0-10.0)
[2022-04-10 14:10] LABS: IRON (FE) 117 UG/DL (50-170)
[2022-04-10 14:11] LABS: ALKALINE PHOSPHATASE 54 U/L (46-116); ALT/SGPT 25 U/L (7.0-40); AST/SGOT 30 U/L (<34); BILIRUBIN,TOTAL 0.5 MG/DL (0.3-1.2); BLOOD UREA NITROGEN 16 MG/DL (9-23); CALCIUM LEVEL 9.8 MG/DL (8.3-10.6); CARBON DIOXIDE LEVEL 28 MMOL/L (20-31); CHLORIDE LEVEL 92 MMOL/L (98-107); CHOLESTEROL LEVEL 245 MG/DL (<200); CHOLESTEROL RISK RATIO 2.61 (<5); CREATININE FOR GFR 0.73 MG/DL (0.55-1.30); FERRITIN 321.3 NG/ML (7.3-270.7); FREE T4 1.45 NG/DL (0.89-1.76); GLOMERULAR FILTRATION RATE > 60.0 (>39); GLUCOSE, FASTING 75 MG/DL (74-106); HDL CHOLESTEROL 93.6 MG/DL (>40); LDL CHOLESTEROL 119.6 MG/DL (<100); NON-HDL-C 151 MG/DL; PERCENT SATURATION 40.9 % (13.2-45.0); POTASSIUM SERUM 4.6 MMOL/L (3.5-5.1); SODIUM LEVEL 129 MMOL/L (136-145); THYROID STIMULATING HORMONE 1.067 uIU/ML (0.55-4.78); TOTAL IRON BINDING CAPACITY 286 UG/DL (250-425); TRIGLYCERIDES LEVEL 159 MG/DL (<150)
[2022-04-10 14:13] LABS: VITAMIN B12 LEVEL 763 PG/ML (211-911)
[2022-04-10 14:15] LABS: FOLATE > 24.0 NG/ML (>5.4); URIC ACID 6.7 MG/DL (3.1-7.8)
[2022-04-10 14:27] LABS: MAU/CREAT RATIO 133.8 MCG/MG (0.0-30.0)
== END ==
LOC: M SFHCADAM 07:56
PROVIDERS: ATTEND Family Medicine
DX: Z00.00 Encounter for general adult medical examination without abnormal findings (principal); D64.9 Anemia, unspecified; I10 Essential (primary) hypertension; E78.2 Mixed hyperlipidemia; E03.9 Hypothyroidism, unspecified; M1A.20X0 Drug-induced chronic gout, unspecified site, without tophus (tophi); M06.09 Rheumatoid arthritis without rheumatoid factor, multiple sites; M89.49 Other hypertrophic osteoarthropathy, multiple sites; Z79.899 Other long term (current) drug therapy; M1A.49X0 Other secondary chronic gout, multiple sites, without tophus (tophi)

== ENCOUNTER 2022-04-16 12:20 | Outpatient (CLI) | payer MEDICARE, OTHER ==
[~2022-04-16] VITALS: Ht 30.5 cm; Wt 69.3 kg
[~2022-04-16 12:20] MED LIST changes: +ALBUTEROL SULFATE 2.5MG/0.5ML INH NEB SOLN INH PRN; +EPINEPHrine INJ 1 MG/ML 1ML AMP IM PRN; +NS 1,000 ML IV SCH; +diphenhydrAMINE 50MG/ML VIAL IV PRN; +inFLIXimab INJECTION 600 MG in NS 190 ML IV ONE; +methylPREDNISolone 125MG 2ML VIAL IV PRN
[2022-04-16 12:45] VITALS: BP 165/89
[2022-04-16] MEDS ORDERED: NS 1,000 ML IV SCH (13:00)
[2022-04-16] MEDS ORDERED: inFLIXimab INJECTION 600 MG in NS 190 ML IV ONE (13:00)
[2022-04-16 14:15] VITALS: BP 146/66
[2022-04-16 14:45] VITALS: BP 151/66
[2022-04-16 15:15] VITALS: BP 148/68
[2022-04-16 16:20] VITALS: BP 186/97
== END 2022-04-16 16:20 | disposition home or self-care (01) ==
LOC: M INFU 12:20
PROVIDERS: ATTEND Internal Medicine Rheumatology
DX: M06.9 Rheumatoid arthritis, unspecified (principal)
CPT/HCPCS: 96413; 96415; J1745

== ENCOUNTER → 2022-04-21 | Outpatient (CLI) | payer MEDICARE, OTHER ==
[~2022-04-21] MED LIST changes: -ALBUTEROL SULFATE 2.5MG/0.5ML INH NEB SOLN INH PRN; -EPINEPHrine INJ 1 MG/ML 1ML AMP IM PRN; -NS 1,000 ML IV SCH; -diphenhydrAMINE 50MG/ML VIAL IV PRN; -inFLIXimab INJECTION 600 MG in NS 190 ML IV ONE; -methylPREDNISolone 125MG 2ML VIAL IV PRN
== END ==
LOC: M WHC 09:44
PROVIDERS: ATTEND Physician Assistant
DX: Z12.31 Encounter for screening mammogram for malignant neoplasm of breast (principal); Z13.820 Encounter for screening for osteoporosis; M81.0 Age-related osteoporosis without current pathological fracture; M85.89 Other specified disorders of bone density and structure, multiple sites

== ENCOUNTER → 2022-05-20 | Outpatient (CLI) | payer MEDICARE, OTHER ==
[~2022-05-20] VITALS: Ht 154.9 cm; Wt 69.0 kg
[~2022-05-20] MED LIST changes: +ALBUTEROL SULFATE 2.5MG/0.5ML INH NEB SOLN INH PRN; +EPINEPHrine INJ 1 MG/ML 1ML AMP IM PRN; +NS 1,000 ML IV SCH; +diphenhydrAMINE 50MG/ML VIAL IV PRN; +inFLIXimab INJECTION 600 MG in NS 190 ML IV ONE; +methylPREDNISolone 125MG 2ML VIAL IV PRN
[2022-05-20 08:10] VITALS: BP 179/82
[2022-05-20 09:00] VITALS: BP 145/63
[2022-05-20 09:30] VITALS: BP 117/67
[2022-05-20 10:00] VITALS: BP 138/60
[2022-05-20 10:40] VITALS: BP 147/64
== END ==
LOC: M INFU 07:47
PROVIDERS: ATTEND Internal Medicine Rheumatology
DX: M06.9 Rheumatoid arthritis, unspecified (principal)
CPT/HCPCS: 96413; 96415; J1745

== ENCOUNTER → 2022-06-06 | Outpatient (REF) | payer MEDICARE, OTHER ==
[~2022-06-06] MED LIST changes: -ALBUTEROL SULFATE 2.5MG/0.5ML INH NEB SOLN INH PRN; -EPINEPHrine INJ 1 MG/ML 1ML AMP IM PRN; -NS 1,000 ML IV SCH; -diphenhydrAMINE 50MG/ML VIAL IV PRN; -inFLIXimab INJECTION 600 MG in NS 190 ML IV ONE; -methylPREDNISolone 125MG 2ML VIAL IV PRN
[2022-06-06 13:20] LABS: URIC ACID 5.1 MG/DL (3.1-7.8)
[2022-06-06 13:23] LABS: ALBUMIN 3.9 G/DL (3.2-5.2); ALKALINE PHOSPHATASE 57 U/L (46-116); ALT/SGPT 23 U/L (7.0-40); AST/SGOT 25 U/L (<34); BILIRUBIN,TOTAL 0.4 MG/DL (0.3-1.2); BLOOD UREA NITROGEN 19 MG/DL (9-23); CALCIUM LEVEL 9.5 MG/DL (8.3-10.6); CARBON DIOXIDE LEVEL 27 MMOL/L (20-31); CHLORIDE LEVEL 97 MMOL/L (98-107); CREATININE FOR GFR 0.71 MG/DL (0.55-1.30); GLOMERULAR FILTRATION RATE > 60.0 (>39); GLUCOSE, FASTING 74 MG/DL (74-106); SODIUM LEVEL 131 MMOL/L (136-145); TOTAL PROTEIN 7.8 G/DL (5.7-8.2)
[2022-06-06 13:24] LABS: C REACTIVE PROTEIN QUANTITATIV < 0.40 MG/DL (<1.0)
[2022-06-06 13:26] LABS: TOTAL 25(OH) VITAMIN D 50.6 NG/ML (20.0-100.0)
[2022-06-06 13:30] LABS: BASO # 0.1 10^3/uL (0.0-0.2); BASO % 0.8 % (0.0-1.0); EOS # 0.7 10^3/uL (0.0-0.5); HEMATOCRIT 36.4 % (36.0-47.0); HEMOGLOBIN 11.3 g/dl (12.0-15.5); LYMPH % 26.6 % (24.0-44.0); MEAN CORPUSCULAR HEMOGLOBIN 27.6 pg (27.0-33.0); MONO # 0.6 10^3/uL (0.0-0.8); MONO % 7.7 % (2.0-8.0); NEUTROPHILS # 4.3 10^3/uL (1.5-8.5); NEUTROPHILS % 55.6 % (36.0-66.0); PLATELET COUNT, AUTOMATED 271 10^3/uL (150-450); RED BLOOD COUNT 4.09 10^6/uL (4.00-5.40); WHITE BLOOD COUNT 7.7 10^3/uL (4.0-10.0)
[2022-06-06 14:35] LABS: ERYTHROCYTE SEDIMENTATION RATE 92 mm/hr (0-30)
== END ==
LOC: M SFHCADAM 08:06
PROVIDERS: ATTEND Physician Assistant
DX: M06.09 Rheumatoid arthritis without rheumatoid factor, multiple sites (principal); M1A.49X0 Other secondary chronic gout, multiple sites, without tophus (tophi); M89.49 Other hypertrophic osteoarthropathy, multiple sites; Z79.899 Other long term (current) drug therapy; I10 Essential (primary) hypertension; E87.1 Hypo-osmolality and hyponatremia; M81.0 Age-related osteoporosis without current pathological fracture; E55.9 Vitamin D deficiency, unspecified

== ENCOUNTER → 2022-06-18 | Outpatient (REF) | payer MEDICARE, OTHER ==
[2022-06-18 13:32] LABS: BASO # 0.1 10^3/uL (0.0-0.2); BASO % 0.8 % (0.0-1.0); EOS # 0.6 10^3/uL (0.0-0.5); EOS % 8.7 % (0.0-3.0); HEMATOCRIT 35.2 % (36.0-47.0); HEMOGLOBIN 11.4 g/dl (12.0-15.5); LYMPH # 2.1 10^3/uL (1.5-5.0); LYMPH % 33.2 % (24.0-44.0); MEAN CORPUSCULAR HEMOGLOBIN 28.1 pg (27.0-33.0); MEAN CORPUSCULAR HGB CONC 32.4 g/dl (32.0-36.5); MEAN CORPUSCULAR VOLUME 86.7 fl (80.0-96.0); MONO # 0.5 10^3/uL (0.0-0.8); MONO % 7.6 % (2.0-8.0); NEUTROPHILS # 3.2 10^3/uL (1.5-8.5); NEUTROPHILS % 49.4 % (36.0-66.0); PLATELET COUNT, AUTOMATED 233 10^3/uL (150-450); RED BLOOD COUNT 4.06 10^6/uL (4.00-5.40); WHITE BLOOD COUNT 6.4 10^3/uL (4.0-10.0)
[2022-06-18 14:00] LABS: URIC ACID 4.7 MG/DL (3.1-7.8)
[2022-06-18 14:01] LABS: C REACTIVE PROTEIN QUANTITATIV < 0.40 MG/DL (<1.0); ERYTHROCYTE SEDIMENTATION RATE 79 mm/hr (0-30)
[2022-06-18 14:12] LABS: ALBUMIN 3.9 G/DL (3.2-5.2); ALKALINE PHOSPHATASE 57 U/L (46-116); ALT/SGPT 20 U/L (7.0-40); AST/SGOT 29 U/L (<34); BILIRUBIN,TOTAL 0.7 MG/DL (0.3-1.2); BLOOD UREA NITROGEN 14 MG/DL (9-23); CALCIUM LEVEL 9.6 MG/DL (8.3-10.6); CARBON DIOXIDE LEVEL 26 MMOL/L (20-31); CHLORIDE LEVEL 91 MMOL/L (98-107); CREATININE FOR GFR 0.71 MG/DL (0.55-1.30); GLOMERULAR FILTRATION RATE > 60.0 (>39); GLUCOSE, FASTING 83 MG/DL (74-106); POTASSIUM SERUM 4.8 MMOL/L (3.5-5.1); SODIUM LEVEL 126 MMOL/L (136-145); TOTAL PROTEIN 7.6 G/DL (5.7-8.2)
== END ==
LOC: M SFHCADAM 08:28
PROVIDERS: ATTEND Internal Medicine Rheumatology
DX: M06.09 Rheumatoid arthritis without rheumatoid factor, multiple sites (principal); M1A.49X0 Other secondary chronic gout, multiple sites, without tophus (tophi); M89.49 Other hypertrophic osteoarthropathy, multiple sites; Z79.899 Other long term (current) drug therapy

== ENCOUNTER 2022-06-24 08:00 | Outpatient (CLI) | payer MEDICARE, OTHER ==
[~2022-06-24] VITALS: Ht 154.9 cm; Wt 69.5 kg
[~2022-06-24 08:00] MED LIST changes: +ALBUTEROL SULFATE 2.5MG/0.5ML INH NEB SOLN INH PRN; +EPINEPHrine INJ 1 MG/ML 1ML AMP IM PRN; +NS 1,000 ML IV SCH; +diphenhydrAMINE 50MG/ML VIAL IV PRN; +inFLIXimab INJECTION 600 MG in NS 190 ML IV ONE; +methylPREDNISolone 125MG 2ML VIAL IV PRN
[2022-06-24 08:56] VITALS: BP 160/67
[2022-06-24 09:15] VITALS: BP 141/61
[2022-06-24 10:58] VITALS: BP 133/66
== END 2022-06-24 10:55 ==
LOC: M INFU 08:00
PROVIDERS: ATTEND Internal Medicine Rheumatology
DX: M06.9 Rheumatoid arthritis, unspecified (principal)
CPT/HCPCS: 96413; 96415; J1745

== ENCOUNTER 2022-07-29 07:48 | Outpatient (CLI) | payer MEDICARE, OTHER ==
[~2022-07-29] VITALS: Ht 154.9 cm; Wt 69.5 kg
[~2022-07-29 07:48] MED LIST changes: -NS 1,000 ML IV SCH; -inFLIXimab INJECTION 600 MG in NS 190 ML IV ONE
[2022-07-29] MEDS ORDERED: inFLIXimab INJECTION 600 MG in NS 190 ML IV ONE (08:00)
[2022-07-29 08:12] VITALS: BP 169/78
[2022-07-29 09:00] VITALS: BP 154/68
[2022-07-29 10:39] VITALS: BP 188/84
== END 2022-07-29 10:45 | disposition home or self-care (01) ==
LOC: M INFU 07:48
PROVIDERS: ATTEND Internal Medicine Rheumatology
DX: M06.9 Rheumatoid arthritis, unspecified (principal)
CPT/HCPCS: 96413; 96415; J1745

== ENCOUNTER → 2022-08-13 | Outpatient (REF) | payer MEDICARE, OTHER ==
[~2022-08-13] MED LIST changes: -ALBUTEROL SULFATE 2.5MG/0.5ML INH NEB SOLN INH PRN; -EPINEPHrine INJ 1 MG/ML 1ML AMP IM PRN; -diphenhydrAMINE 50MG/ML VIAL IV PRN; -methylPREDNISolone 125MG 2ML VIAL IV PRN
[2022-08-13 13:50] LABS: URIC ACID 3.9 MG/DL (3.1-7.8)
[2022-08-13 13:52] LABS: ALBUMIN 3.6 G/DL (3.2-5.2); ALKALINE PHOSPHATASE 52 U/L (46-116); ALT/SGPT 21 U/L (7.0-40); AST/SGOT 28 U/L (<34); BILIRUBIN,TOTAL 0.4 MG/DL (0.3-1.2); BLOOD UREA NITROGEN 11 MG/DL (9-23); CALCIUM LEVEL 9.2 MG/DL (8.3-10.6); CARBON DIOXIDE LEVEL 28 MMOL/L (20-31); CHLORIDE LEVEL 100 MMOL/L (98-107); CREATININE FOR GFR 0.72 MG/DL (0.55-1.30); GLOMERULAR FILTRATION RATE > 60.0 (>39); GLUCOSE, FASTING 80 MG/DL (74-106); POTASSIUM SERUM 5.1 MMOL/L (3.5-5.1); SODIUM LEVEL 135 MMOL/L (136-145); TOTAL PROTEIN 7.4 G/DL (5.7-8.2)
[2022-08-13 13:53] LABS: C REACTIVE PROTEIN QUANTITATIV < 0.40 MG/DL (<1.0)
[2022-08-13 13:54] LABS: COMPLEMENT C3 85.6 MG/DL (90.0-170.0); COMPLEMENT C4 11.8 MG/DL (12-36); IMMUNOGLOBULIN A 171.7 MG/DL (40-350); IMMUNOGLOBULIN G 1304 MG/DL (650-1600)
[2022-08-13 13:55] LABS: BASO # 0.1 10^3/uL (0.0-0.2); BASO % 0.8 % (0.0-1.0); EOS # 0.3 10^3/uL (0.0-0.5); EOS % 5.5 % (0.0-3.0); HEMATOCRIT 34.8 % (36.0-47.0); HEMOGLOBIN 10.8 g/dl (12.0-15.5); LYMPH # 1.6 10^3/uL (1.5-5.0); LYMPH % 25.4 % (24.0-44.0); MEAN CORPUSCULAR HEMOGLOBIN 27.8 pg (27.0-33.0); MEAN CORPUSCULAR VOLUME 89.5 fl (80.0-96.0); MONO # 0.3 10^3/uL (0.0-0.8); MONO % 5.4 % (2.0-8.0); NEUTROPHILS # 3.9 10^3/uL (1.5-8.5); NEUTROPHILS % 62.7 % (36.0-66.0); PLATELET COUNT, AUTOMATED 258 10^3/uL (150-450); RED BLOOD COUNT 3.89 10^6/uL (4.00-5.40); WHITE BLOOD COUNT 6.2 10^3/uL (4.0-10.0)
[2022-08-13 13:56] LABS: BLOOD UREA NITROGEN 11 MG/DL (9-23); CALCIUM LEVEL 9.3 MG/DL (8.3-10.6); CARBON DIOXIDE LEVEL 28 MMOL/L (20-31); CHLORIDE LEVEL 96 MMOL/L (98-107); CREATININE FOR GFR 0.69 MG/DL (0.55-1.30); GLOMERULAR FILTRATION RATE > 60.0 (>39); GLUCOSE, FASTING 79 MG/DL (74-106); POTASSIUM SERUM 5.1 MMOL/L (3.5-5.1); SODIUM LEVEL 132 MMOL/L (136-145)
[2022-08-13 14:13] LABS: TOTAL PROTEIN,RANDOM URINE 39.3 MG/DL (0.0-14.0)
[2022-08-13 14:18] LABS: CREATININE,RANDOM URINE 53.4 MG/DL
[2022-08-13 14:22] LABS: APPEARANCE, URINE CLEAR (CLEAR); BACTERIA, URINE AUTO NEGATIVE (NEGATIVE); BILIRUBIN, URINE AUTO NEGATIVE (NEGATIVE); BLOOD, URINE BLOOD NEGATIVE (NEGATIVE); COLOR, URINE YELLOW (YELLOW); GLUCOSE, URINE (UA) AUTO NEGATIVE (NEGATIVE); KETONE, URINE AUTO NEGATIVE (NEGATIVE); LEUKOCYTE ESTERASE, URINE AUTO NEGATIVE (NEGATIVE); NITRITE, URINE AUTO NEGATIVE (NEGATIVE); PROTEIN, URINE AUTO 1+ mg/dL (NEGATIVE); RBC, URINE AUTO 0 /HPF (0-3); SQUAMOUS EPITHELIAL CELL UR AU 1 /HPF (0-6); UROBILINOGEN, URINE AUTO 0.2 mg/dL (0.0-2.0); WBC, URINE AUTO 1 /HPF (0-3)
[2022-08-13 14:37] LABS: IMMUNOGLOBULIN M 992.3 MG/DL (50-300)
[2022-08-13 15:28] LABS: ERYTHROCYTE SEDIMENTATION RATE 64 mm/hr (0-30)
[2022-08-14 13:12] LABS: COMPLEMENT TOTAL (CH50) 39 U/mL (>41)
== END ==
LOC: M SFHCADAM 07:36
PROVIDERS: ATTEND Internal Medicine Rheumatology
DX: E87.1 Hypo-osmolality and hyponatremia (principal); M06.09 Rheumatoid arthritis without rheumatoid factor, multiple sites; M1A.49X0 Other secondary chronic gout, multiple sites, without tophus (tophi); M89.49 Other hypertrophic osteoarthropathy, multiple sites; Z79.899 Other long term (current) drug therapy

== ENCOUNTER 2022-09-02 08:00 | Outpatient (CLI) | payer MEDICARE, OTHER ==
[~2022-09-02] VITALS: Ht 154.9 cm; Wt 69.5 kg
[~2022-09-02 08:00] MED LIST changes: +ALBUTEROL SULFATE 2.5MG/0.5ML INH NEB SOLN INH PRN; +EPINEPHrine INJ 1 MG/ML 1ML AMP IM PRN; +diphenhydrAMINE 50MG/ML VIAL IV PRN; +methylPREDNISolone 125MG 2ML VIAL IV PRN
[2022-09-02 08:12] VITALS: BP 160/76; TEMP 97.8; O2SAT 100
[2022-09-02] MEDS ORDERED: inFLIXimab INJECTION 600 MG in NS 190 ML IV ONE (08:15)
[2022-09-02 09:00] VITALS: BP 149/74; TEMP 97.6; O2SAT 99
[2022-09-02 10:46] VITALS: BP 148/67; TEMP 98.2; O2SAT 98
== END 2022-09-02 10:45 | disposition home or self-care (01) ==
LOC: M INFU 08:00
PROVIDERS: ATTEND Internal Medicine Rheumatology
DX: M06.9 Rheumatoid arthritis, unspecified (principal)
CPT/HCPCS: 96413; 96415; J1745

== ENCOUNTER 2022-10-07 08:20 | Outpatient (CLI) | payer MEDICARE, OTHER ==
[~2022-10-07] VITALS: Ht 154.9 cm; Wt 69.5 kg
[2022-10-07 08:20] VITALS: BP 152/100; TEMP 97.8; O2SAT 100
[~2022-10-07 08:20] MED LIST changes: +LISI10TA22 PO; +SPIR-10 PO; +TRIA37.5 PO; +inFLIXimab INJECTION 600 MG in NS 190 ML IV ONE
[2022-10-07 09:30] VITALS: BP 128/74; TEMP 97.9; O2SAT 100
[2022-10-07 09:45] VITALS: BP 126/62; TEMP 97.8; O2SAT 96
[2022-10-07 10:00] VITALS: BP 123/72; TEMP 97.6; O2SAT 98
[2022-10-07 10:45] VITALS: BP 142/70; TEMP 97.1; O2SAT 100
[2022-10-07 11:20] VITALS: BP 138/64; TEMP 97.8; O2SAT 100
== END 2022-10-07 11:37 ==
LOC: M INFU 08:20
PROVIDERS: ATTEND Internal Medicine Rheumatology
DX: M06.9 Rheumatoid arthritis, unspecified (principal)
CPT/HCPCS: 96413; 96415; J1745

== ENCOUNTER 2022-11-11 07:55 | Outpatient (CLI) | payer MEDICARE, OTHER ==
[~2022-11-11] VITALS: Ht 154.9 cm; Wt 68.5 kg
[~2022-11-11 07:55] MED LIST changes: -inFLIXimab INJECTION 600 MG in NS 190 ML IV ONE
[2022-11-11 08:26] VITALS: BP 172/74; TEMP 98.2; O2SAT 100
[2022-11-11] MEDS ORDERED: NS 1,000 ML IV SCH (08:30)
[2022-11-11] MEDS ORDERED: inFLIXimab INJECTION 600 MG in NS 190 ML IV ONE (08:30)
[2022-11-11 09:35] VITALS: BP 110/49; TEMP 98.3; O2SAT 100
[2022-11-11 10:50] VITALS: BP 117/56; O2SAT 100
== END 2022-11-11 10:50 ==
LOC: M INFU 07:55
PROVIDERS: ATTEND Internal Medicine Rheumatology
DX: M06.9 Rheumatoid arthritis, unspecified (principal)
CPT/HCPCS: 96413; 96415; J1745

== ENCOUNTER → 2022-11-25 | Outpatient (REF) | payer MEDICARE, OTHER ==
[~2022-11-25] MED LIST changes: -ALBUTEROL SULFATE 2.5MG/0.5ML INH NEB SOLN INH PRN; -EPINEPHrine INJ 1 MG/ML 1ML AMP IM PRN; -diphenhydrAMINE 50MG/ML VIAL IV PRN; -methylPREDNISolone 125MG 2ML VIAL IV PRN
[2022-11-25 15:29] LABS: BASO # 0.1 10^3/uL (0.0-0.2); BASO % 0.7 % (0.0-1.0); EOS # 0.6 10^3/uL (0.0-0.5); HEMATOCRIT 33.9 % (36.0-47.0); HEMOGLOBIN 10.6 g/dl (12.0-15.5); LYMPH # 2.2 10^3/uL (1.5-5.0); MEAN CORPUSCULAR HGB CONC 31.3 g/dl (32.0-36.5); MEAN CORPUSCULAR VOLUME 89.7 fl (80.0-96.0); MONO # 0.5 10^3/uL (0.0-0.8); MONO % 6.7 % (2.0-8.0); NEUTROPHILS # 4.1 10^3/uL (1.5-8.5); NEUTROPHILS % 54.3 % (36.0-66.0); PLATELET COUNT, AUTOMATED 286 10^3/uL (150-450); RED BLOOD COUNT 3.78 10^6/uL (4.00-5.40); WHITE BLOOD COUNT 7.5 10^3/uL (4.0-10.0)
[2022-11-25 15:45] LABS: ERYTHROCYTE SEDIMENTATION RATE 94 mm/hr (0-30)
[2022-11-25 15:55] LABS: URIC ACID 4.4 MG/DL (3.1-7.8)
[2022-11-25 15:56] LABS: C REACTIVE PROTEIN QUANTITATIV < 0.40 MG/DL (<1.0)
[2022-11-25 15:58] LABS: ALBUMIN 3.7 G/DL (3.2-5.2); ALKALINE PHOSPHATASE 55 U/L (46-116); ALT/SGPT 20 U/L (7.0-40); AST/SGOT 19 U/L (<34); BILIRUBIN,TOTAL 0.5 MG/DL (0.3-1.2); BLOOD UREA NITROGEN 16 MG/DL (9-23); CARBON DIOXIDE LEVEL 26 MMOL/L (20-31); CHLORIDE LEVEL 96 MMOL/L (98-107); CREATININE FOR GFR 0.77 MG/DL (0.55-1.30); GLOMERULAR FILTRATION RATE > 60.0 (>39); GLUCOSE, FASTING 78 MG/DL (74-106); POTASSIUM SERUM 5.2 MMOL/L (3.5-5.1); SODIUM LEVEL 130 MMOL/L (136-145); TOTAL PROTEIN 7.7 G/DL (5.7-8.2)
== END ==
LOC: M SFHCADAM 07:56
PROVIDERS: ATTEND Internal Medicine Rheumatology
DX: M1A.49X0 Other secondary chronic gout, multiple sites, without tophus (tophi) (principal); M06.09 Rheumatoid arthritis without rheumatoid factor, multiple sites; M89.49 Other hypertrophic osteoarthropathy, multiple sites; R70.0 Elevated erythrocyte sedimentation rate; Z79.899 Other long term (current) drug therapy

== ENCOUNTER → 2022-12-04 | Outpatient (REF) | payer MEDICARE, OTHER | LOC: M SFHCRHEU 11:27 | PROVIDERS: ATTEND Internal Medicine Rheumatology | DX: M06.09 Rheumatoid arthritis without rheumatoid factor, multiple sites (principal); M1A.49X0 Other secondary chronic gout, multiple sites, without tophus (tophi); M89.49 Other hypertrophic osteoarthropathy, multiple sites; Z79.899 Other long term (current) drug therapy; R70.0 Elevated erythrocyte sedimentation rate ==

== ENCOUNTER 2022-12-16 10:10 | Outpatient (CLI) | payer MEDICARE, OTHER ==
[~2022-12-16] VITALS: Ht 154.9 cm; Wt 69.2 kg
[2022-12-16] VITALS (7 sets, daily range): BP systolic 109–151; BP diastolic 56–67; O2SAT 100
[~2022-12-16 10:10] MED LIST changes: +ALBUTEROL SULFATE 2.5MG/0.5ML INH NEB SOLN INH PRN; +EPINEPHrine INJ 1 MG/ML 1ML AMP IM PRN; +diphenhydrAMINE 50MG/ML VIAL IV PRN; +methylPREDNISolone 125MG 2ML VIAL IV PRN
[2022-12-16] MEDS ORDERED: inFLIXimab INJECTION 700 MG in NS 180 ML IV ONE (10:30)
[2022-12-16] MEDS ORDERED: NS 1,000 ML IV SCH (10:30)
== END 2022-12-16 13:05 ==
LOC: M INFU 10:10
PROVIDERS: ATTEND Internal Medicine Rheumatology
DX: M06.09 Rheumatoid arthritis without rheumatoid factor, multiple sites (principal)
CPT/HCPCS: 96413; 96415; J1745

== ENCOUNTER 2023-01-13 08:55 | Outpatient (CLI) | payer MEDICARE, OTHER ==
[2023-01-13 09:00] VITALS: BP 150/67; O2SAT 100
[2023-01-13] MEDS ORDERED: inFLIXimab INJECTION 700 MG in NS 180 ML IV ONE (09:05)
[2023-01-13 10:45] VITALS: BP 136/64; O2SAT 100
[2023-01-13 11:15] VITALS: BP 162/68; O2SAT 100
[2023-01-13 11:55] VITALS: BP 140/82; O2SAT 100
== END 2023-01-13 12:00 | disposition home or self-care (01) ==
LOC: M INFU 08:55
PROVIDERS: ATTEND Internal Medicine Rheumatology
DX: M06.09 Rheumatoid arthritis without rheumatoid factor, multiple sites (principal)
CPT/HCPCS: 96413; 96415; J1745

== ENCOUNTER 2023-02-10 09:54 | Outpatient (CLI) | payer MEDICARE, OTHER ==
[~2023-02-10] VITALS: Ht 154.9 cm; Wt 68.0 kg
[2023-02-10 09:50] VITALS: BP 163/72; TEMP 97.4; O2SAT 98
[2023-02-10] MEDS ORDERED: inFLIXimab INJECTION 700 MG in NS 180 ML IV ONE (10:00)
[2023-02-10 11:45] VITALS: BP 137/63; O2SAT 99
[2023-02-10 13:00] VITALS: BP 159/70; O2SAT 99
== END 2023-02-10 12:55 ==
LOC: M INFU 09:54
PROVIDERS: ATTEND Internal Medicine Rheumatology
DX: M06.09 Rheumatoid arthritis without rheumatoid factor, multiple sites (principal)
CPT/HCPCS: 96413; 96415; J1745

== ENCOUNTER → 2023-02-12 | Outpatient (REF) | payer MEDICARE, OTHER ==
[~2023-02-12] MED LIST changes: -ALBUTEROL SULFATE 2.5MG/0.5ML INH NEB SOLN INH PRN; -EPINEPHrine INJ 1 MG/ML 1ML AMP IM PRN; -diphenhydrAMINE 50MG/ML VIAL IV PRN; -methylPREDNISolone 125MG 2ML VIAL IV PRN
[2023-02-12 14:21] LABS: BASO % 0.5 % (0.0-1.0); EOS # 0.4 10^3/uL (0.0-0.5); EOS % 5.6 % (0.0-3.0); HEMATOCRIT 35.8 % (36.0-47.0); HEMOGLOBIN 11.2 g/dl (12.0-15.5); LYMPH # 2.1 10^3/uL (1.5-5.0); LYMPH % 27.7 % (24.0-44.0); MEAN CORPUSCULAR HEMOGLOBIN 28.4 pg (27.0-33.0); MEAN CORPUSCULAR HGB CONC 31.3 g/dl (32.0-36.5); MEAN CORPUSCULAR VOLUME 90.6 fl (80.0-96.0); MONO # 0.6 10^3/uL (0.0-0.8); MONO % 7.9 % (2.0-8.0); NEUTROPHILS # 4.3 10^3/uL (1.5-8.5); RED BLOOD COUNT 3.95 10^6/uL (4.00-5.40); WHITE BLOOD COUNT 7.5 10^3/uL (4.0-10.0)
[2023-02-12 14:35] LABS: C REACTIVE PROTEIN QUANTITATIV < 0.40 MG/DL (<1.0)
[2023-02-12 14:36] LABS: ALBUMIN 3.8 G/DL (3.2-5.2); ALKALINE PHOSPHATASE 51 U/L (46-116); ALT/SGPT 17 U/L (7.0-40); AST/SGOT 22 U/L (<34); BILIRUBIN,TOTAL 0.5 MG/DL (0.3-1.2); BLOOD UREA NITROGEN 16 MG/DL (9-23); CALCIUM LEVEL 9.2 MG/DL (8.3-10.6); CARBON DIOXIDE LEVEL 27 MMOL/L (20-31); CHLORIDE LEVEL 100 MMOL/L (98-107); CREATININE FOR GFR 0.66 MG/DL (0.55-1.30); GLOMERULAR FILTRATION RATE > 60.0 (>39); GLUCOSE, FASTING 84 MG/DL (74-106); POTASSIUM SERUM 5.2 MMOL/L (3.5-5.1); SODIUM LEVEL 132 MMOL/L (136-145); TOTAL PROTEIN 7.8 G/DL (5.7-8.2)
[2023-02-12 15:55] LABS: ERYTHROCYTE SEDIMENTATION RATE 93 mm/hr (0-30)
== END ==
LOC: M SFHCADAM 08:36
PROVIDERS: ATTEND Internal Medicine Rheumatology
DX: M06.09 Rheumatoid arthritis without rheumatoid factor, multiple sites (principal); M1A.49X0 Other secondary chronic gout, multiple sites, without tophus (tophi); M89.49 Other hypertrophic osteoarthropathy, multiple sites; Z79.899 Other long term (current) drug therapy; R70.0 Elevated erythrocyte sedimentation rate

== ENCOUNTER 2023-03-10 09:35 | Outpatient (CLI) | payer MEDICARE, OTHER ==
[~2023-03-10] VITALS: Ht 152.4 cm; Wt 69.0 kg
[~2023-03-10 09:35] MED LIST changes: +ALBUTEROL SULFATE 2.5MG/0.5ML INH NEB SOLN INH PRN; +EPINEPHrine INJ 1 MG/ML 1ML AMP IM PRN; +NS 1,000 ML IV SCH; +diphenhydrAMINE 50MG/ML VIAL IV PRN; +inFLIXimab INJECTION 700 MG in NS 180 ML IV ONE; +methylPREDNISolone 125MG 2ML VIAL IV PRN
[2023-03-10 12:50] VITALS: BP 158/84; O2SAT 100
== END 2023-03-10 12:50 | disposition home or self-care (01) ==
LOC: M INFU 09:35
PROVIDERS: ATTEND Internal Medicine Rheumatology
DX: M06.09 Rheumatoid arthritis without rheumatoid factor, multiple sites (principal)
CPT/HCPCS: 96413; 96415; J1745

== ENCOUNTER 2023-04-07 09:15 | Outpatient (CLI) | payer MEDICARE, OTHER ==
[~2023-04-07 09:15] MED LIST changes: -NS 1,000 ML IV SCH; -inFLIXimab INJECTION 700 MG in NS 180 ML IV ONE
[2023-04-07] MEDS ORDERED: inFLIXimab INJECTION 700 MG in NS 180 ML IV ONE (09:30)
[2023-04-07 09:34] VITALS: BP 145/70; TEMP 97.3; O2SAT 100
[2023-04-07 11:00] VITALS: BP 121/59; TEMP 97.2; O2SAT 97
[2023-04-07 11:13] VITALS: BP 118/74; TEMP 97.3; O2SAT 97
[2023-04-07 11:30] VITALS: BP 132/59; O2SAT 100
[2023-04-07 12:10] VITALS: BP 160/70; O2SAT 100
== END 2023-04-07 12:20 | disposition home or self-care (01) ==
LOC: M INFU 09:15
PROVIDERS: ATTEND Internal Medicine Rheumatology
DX: M06.09 Rheumatoid arthritis without rheumatoid factor, multiple sites (principal)
CPT/HCPCS: 96413; 96415; J1745

== ENCOUNTER 2023-05-05 09:20 | Outpatient (CLI) | payer MEDICARE, OTHER ==
[2023-05-05] VITALS (8 sets, daily range): BP systolic 143–160; BP diastolic 67–76; TEMP 97; O2SAT 100
[~2023-05-05] VITALS: Ht 152.4 cm; Wt 70.3 kg
[2023-05-05] MEDS: inFLIXimab INJECTION 700 MG in NS 180 ML IV ONE (10:10)
== END 2023-05-05 12:15 ==
LOC: M INFU 09:20
PROVIDERS: ATTEND Internal Medicine Rheumatology
DX: M06.09 Rheumatoid arthritis without rheumatoid factor, multiple sites (principal)
CPT/HCPCS: 96413; 96415; J1745

== ENCOUNTER 2023-06-02 09:50 | Outpatient (CLI) | payer MEDICARE, OTHER ==
[~2023-06-02] VITALS: Ht 152.4 cm; Wt 69.5 kg
[2023-06-02 09:50] VITALS: BP 135/63; O2SAT 100
[2023-06-02] MEDS: inFLIXimab INJECTION 700 MG in NS 180 ML IV ONE (11:02)
[2023-06-02 13:05] VITALS: BP 186/88; O2SAT 100
== END 2023-06-02 13:05 | disposition home or self-care (01) ==
LOC: M INFU 09:50
PROVIDERS: ATTEND Internal Medicine Rheumatology
DX: M06.09 Rheumatoid arthritis without rheumatoid factor, multiple sites (principal)
CPT/HCPCS: 96413; 96415; J1745

== ENCOUNTER → 2023-06-05 | Outpatient (REF) | payer MEDICARE, OTHER ==
[~2023-06-05] MED LIST changes: -ALBUTEROL SULFATE 2.5MG/0.5ML INH NEB SOLN INH PRN; -EPINEPHrine INJ 1 MG/ML 1ML AMP IM PRN; -diphenhydrAMINE 50MG/ML VIAL IV PRN; -methylPREDNISolone 125MG 2ML VIAL IV PRN
[2023-06-05 14:16] LABS: BASO # 0.1 10^3/uL (0.0-0.2); EOS # 0.6 10^3/uL (0.0-0.5); EOS % 8.3 % (0.0-3.0); HEMOGLOBIN 10.8 g/dl (12.0-15.5); LYMPH # 2.4 10^3/uL (1.5-5.0); MEAN CORPUSCULAR HEMOGLOBIN 28.5 pg (27.0-33.0); MEAN CORPUSCULAR HGB CONC 30.9 g/dl (32.0-36.5); MEAN CORPUSCULAR VOLUME 92.3 fl (80.0-96.0); MONO # 0.5 10^3/uL (0.0-0.8); MONO % 7.4 % (2.0-8.0); NEUTROPHILS # 3.6 10^3/uL (1.5-8.5); RED BLOOD COUNT 3.79 10^6/uL (4.00-5.40); WHITE BLOOD COUNT 7.2 10^3/uL (4.0-10.0)
[2023-06-05 14:25] LABS: ERYTHROCYTE SEDIMENTATION RATE 106 mm/hr (0-30)
[2023-06-05 14:43] LABS: C REACTIVE PROTEIN QUANTITATIV < 0.40 MG/DL (<1.0)
[2023-06-05 14:45] LABS: ALBUMIN 3.7 G/DL (3.2-5.2); ALKALINE PHOSPHATASE 54 U/L (46-116); ALT/SGPT 21 U/L (7.0-40); AST/SGOT 24 U/L (<34); BILIRUBIN,TOTAL 0.5 MG/DL (0.3-1.2); BLOOD UREA NITROGEN 21 MG/DL (9-23); CALCIUM LEVEL 9.4 MG/DL (8.3-10.6); CARBON DIOXIDE LEVEL 26 MMOL/L (20-31); CHLORIDE LEVEL 103 MMOL/L (98-107); CREATININE FOR GFR 0.77 MG/DL (0.55-1.30); GLOMERULAR FILTRATION RATE > 60.0 (>39); GLUCOSE, FASTING 82 MG/DL (74-106); POTASSIUM SERUM 5.9 MMOL/L (3.5-5.1); SODIUM LEVEL 134 MMOL/L (136-145); TOTAL PROTEIN 7.5 G/DL (5.7-8.2)
== END ==
LOC: M SFHCADAM 08:08
PROVIDERS: ATTEND Physician Assistant
DX: M06.09 Rheumatoid arthritis without rheumatoid factor, multiple sites (principal); M1A.49X0 Other secondary chronic gout, multiple sites, without tophus (tophi); M89.49 Other hypertrophic osteoarthropathy, multiple sites; R70.0 Elevated erythrocyte sedimentation rate; Z79.899 Other long term (current) drug therapy

== ENCOUNTER → 2023-06-10 | Outpatient (REF) | payer MEDICARE, OTHER ==
[2023-06-10 15:14] LABS: HEMOGLOBIN A1c 4.9 % (4.0-6.0)
[2023-06-10 15:19] LABS: FOLATE > 24.0 NG/ML (>5.4)
[2023-06-10 15:20] LABS: BLOOD UREA NITROGEN 23 MG/DL (9-23); CALCIUM LEVEL 8.6 MG/DL (8.3-10.6); CARBON DIOXIDE LEVEL 27 MMOL/L (20-31); CHLORIDE LEVEL 103 MMOL/L (98-107); CHOLESTEROL LEVEL 218 MG/DL (<200); CHOLESTEROL RISK RATIO 2.93 (<5); CREATININE FOR GFR 0.76 MG/DL (0.55-1.30); GLOMERULAR FILTRATION RATE > 60.0 (>39); GLUCOSE, FASTING 101 MG/DL (74-106); HDL CHOLESTEROL 74.3 MG/DL (>40); IRON (FE) 117 UG/DL (50-170); LDL CHOLESTEROL 112.9 MG/DL (<100); NON-HDL-C 143.7 MG/DL; PERCENT SATURATION 38.5 % (13.2-45.0); POTASSIUM SERUM 4.8 MMOL/L (3.5-5.1); SODIUM LEVEL 134 MMOL/L (136-145); TOTAL 25(OH) VITAMIN D 52.9 NG/ML (20.0-100.0); TOTAL IRON BINDING CAPACITY 304 UG/DL (250-425); TRIGLYCERIDES LEVEL 154 MG/DL (<150); VITAMIN B12 LEVEL 605 PG/ML (211-911)
[2023-06-10 15:21] LABS: FERRITIN 278.5 NG/ML (7.3-270.7); THYROID STIMULATING HORMONE 0.428 uIU/ML (0.55-4.78)
[2023-06-10 15:22] LABS: FREE T4 1.26 NG/DL (0.89-1.76)
== END ==
LOC: M LABDRWAD 13:24
PROVIDERS: ATTEND Physician Assistant
DX: Z86.010 Personal history of colon polyps (principal); D64.9 Anemia, unspecified; E78.5 Hyperlipidemia, unspecified; E03.9 Hypothyroidism, unspecified; E78.2 Mixed hyperlipidemia; I10 Essential (primary) hypertension; E55.9 Vitamin D deficiency, unspecified; M06.9 Rheumatoid arthritis, unspecified; Z79.899 Other long term (current) drug therapy

== ENCOUNTER → 2023-06-10 | Outpatient (CLI) | payer MEDICARE, OTHER | LOC: M WHC 10:17 | PROVIDERS: ATTEND Physician Assistant | DX: Z12.31 Encounter for screening mammogram for malignant neoplasm of breast (principal) ==

== ENCOUNTER → 2023-06-11 | Outpatient (REF) | payer MEDICARE, OTHER | LOC: M SFHCADAM 12:15 | PROVIDERS: ATTEND Physician Assistant | DX: E87.5 Hyperkalemia (principal); Z86.010 Personal history of colon polyps; D64.9 Anemia, unspecified; E03.9 Hypothyroidism, unspecified; E78.2 Mixed hyperlipidemia; I10 Essential (primary) hypertension; E55.9 Vitamin D deficiency, unspecified; M06.9 Rheumatoid arthritis, unspecified ==

== ENCOUNTER 2023-06-30 07:35 | Outpatient (CLI) | payer MEDICARE, OTHER ==
[~2023-06-30] VITALS: Ht 152.4 cm; Wt 70.4 kg
[~2023-06-30 07:35] MED LIST changes: +ALBUTEROL SULFATE 2.5MG/0.5ML INH NEB SOLN INH PRN; +EPINEPHrine INJ 1 MG/ML 1ML AMP IM PRN; +diphenhydrAMINE 50MG/ML VIAL IV PRN; +methylPREDNISolone 125MG 2ML VIAL IV PRN
[2023-06-30 07:42] VITALS: BP 128/57; O2SAT 100
[2023-06-30 08:00] VITALS: BP 160/67; TEMP 97.3; O2SAT 100
[2023-06-30] MEDS: inFLIXimab INJECTION 700 MG in NS 180 ML IV ONE (08:04)
[2023-06-30 08:30] VITALS: BP 137/69; TEMP 98; O2SAT 98
[2023-06-30 09:00] VITALS: BP 139/80; TEMP 98; O2SAT 97
[2023-06-30 10:00] VITALS: BP 143/70; TEMP 97.3; O2SAT 96
== END 2023-06-30 10:05 | disposition home or self-care (01) ==
LOC: M INFU 07:35
PROVIDERS: ATTEND Internal Medicine Rheumatology
DX: M06.09 Rheumatoid arthritis without rheumatoid factor, multiple sites (principal)
CPT/HCPCS: 96413; 96415; J1745

== ENCOUNTER → 2023-07-17 | Outpatient (REF) | payer MEDICARE, OTHER ==
[~2023-07-17] MED LIST changes: -ALBUTEROL SULFATE 2.5MG/0.5ML INH NEB SOLN INH PRN; -EPINEPHrine INJ 1 MG/ML 1ML AMP IM PRN; -diphenhydrAMINE 50MG/ML VIAL IV PRN; -methylPREDNISolone 125MG 2ML VIAL IV PRN
[2023-07-17 13:57] LABS: BASO # 0.1 10^3/uL (0.0-0.2); BASO % 0.6 % (0.0-1.0); EOS # 0.7 10^3/uL (0.0-0.5); EOS % 6.5 % (0.0-3.0); HEMATOCRIT 34.1 % (36.0-47.0); HEMOGLOBIN 10.6 g/dl (12.0-15.5); LYMPH # 2.3 10^3/uL (1.5-5.0); LYMPH % 21.8 % (24.0-44.0); MEAN CORPUSCULAR HEMOGLOBIN 28.6 pg (27.0-33.0); MEAN CORPUSCULAR HGB CONC 31.1 g/dl (32.0-36.5); MEAN CORPUSCULAR VOLUME 91.9 fl (80.0-96.0); MONO # 0.7 10^3/uL (0.0-0.8); MONO % 6.3 % (2.0-8.0); NEUTROPHILS # 6.8 10^3/uL (1.5-8.5); NEUTROPHILS % 64.5 % (36.0-66.0); RED BLOOD COUNT 3.71 10^6/uL (4.00-5.40); WHITE BLOOD COUNT 10.6 10^3/uL (4.0-10.0)
[2023-07-17 15:08] LABS: ALBUMIN 3.6 G/DL (3.2-5.2); ALKALINE PHOSPHATASE 58 U/L (46-116); ALT/SGPT 18 U/L (7.0-40); AST/SGOT 21 U/L (<34); BILIRUBIN,TOTAL 0.5 MG/DL (0.3-1.2); BLOOD UREA NITROGEN 20 MG/DL (9-23); CALCIUM LEVEL 8.9 MG/DL (8.3-10.6); CARBON DIOXIDE LEVEL 27 MMOL/L (20-31); CHLORIDE LEVEL 98 MMOL/L (98-107); CHOLESTEROL LEVEL 213 MG/DL (<200); CHOLESTEROL RISK RATIO 2.78 (<5); CREATININE FOR GFR 0.79 MG/DL (0.55-1.30); FREE T4 1.07 NG/DL (0.89-1.76); GLOMERULAR FILTRATION RATE > 60.0 (>39); GLUCOSE, FASTING 80 MG/DL (74-106); HDL CHOLESTEROL 76.6 MG/DL (>40); LDL CHOLESTEROL 95.6 MG/DL (<100); NON-HDL-C 136.4 MG/DL; POTASSIUM SERUM 4.8 MMOL/L (3.5-5.1); SODIUM LEVEL 132 MMOL/L (136-145); THYROID STIMULATING HORMONE 1.602 uIU/ML (0.55-4.78); TOTAL 25(OH) VITAMIN D 42.1 NG/ML (20.0-100.0); TOTAL PROTEIN 7.6 G/DL (5.7-8.2); TRIGLYCERIDES LEVEL 204 MG/DL (<150)
== END ==
LOC: M SFHCADAM 08:04
PROVIDERS: ATTEND Physician Assistant
DX: I10 Essential (primary) hypertension (principal); E78.2 Mixed hyperlipidemia; E03.9 Hypothyroidism, unspecified; K21.9 Gastro-esophageal reflux disease without esophagitis; E55.9 Vitamin D deficiency, unspecified; M81.0 Age-related osteoporosis without current pathological fracture; E87.5 Hyperkalemia

== ENCOUNTER → 2023-07-19 | Outpatient (REF) | payer MEDICARE, OTHER ==
[2023-07-20 14:02] LABS: CREATININE, URINE 93.9 MG/DL; MAU/CREAT RATIO 13.8 MCG/MG (0.0-30.0)
== END ==
LOC: M SFHCADAM 12:20
PROVIDERS: ATTEND Physician Assistant
DX: I10 Essential (primary) hypertension (principal); K21.9 Gastro-esophageal reflux disease without esophagitis; E03.9 Hypothyroidism, unspecified; E78.2 Mixed hyperlipidemia

== ENCOUNTER → 2023-07-22 | Outpatient (REF) | payer MEDICARE, OTHER ==
[2023-07-22 12:26] LABS: APPEARANCE, URINE CLEAR (CLEAR); BACTERIA, URINE AUTO NEGATIVE (NEGATIVE); BILIRUBIN, URINE AUTO NEGATIVE (NEGATIVE); BLOOD, URINE BLOOD NEGATIVE (NEGATIVE); COLOR, URINE COLORLESS (YELLOW); GLUCOSE, URINE (UA) AUTO NEGATIVE (NEGATIVE); KETONE, URINE AUTO NEGATIVE (NEGATIVE); LEUKOCYTE ESTERASE, URINE AUTO NEGATIVE (NEGATIVE); NITRITE, URINE AUTO NEGATIVE (NEGATIVE); PROTEIN, URINE AUTO NEGATIVE (NEGATIVE); RBC, URINE AUTO 0 /HPF (0-3); SPECIFIC GRAVITY URINE AUTO 1.005 (1.002-1.035); SQUAMOUS EPITHELIAL CELL UR AU 0 /HPF (0-6); UROBILINOGEN, URINE AUTO 0.2 mg/dL (0.0-2.0); WBC, URINE AUTO 0 /HPF (0-3)
== END ==
LOC: M SFHCADAM 12:02
PROVIDERS: ATTEND Physician Assistant
DX: N30.00 Acute cystitis without hematuria (principal)

== ENCOUNTER 2023-07-28 07:30 | Outpatient (CLI) | payer MEDICARE, OTHER ==
[~2023-07-28] VITALS: Ht 185.4 cm; Wt 155.8 kg
[~2023-07-28 07:30] MED LIST changes: +ALBUTEROL SULFATE 2.5MG/0.5ML INH NEB SOLN INH PRN; +EPINEPHrine INJ 1 MG/ML 1ML AMP IM PRN; +diphenhydrAMINE 50MG/ML VIAL IV PRN; +methylPREDNISolone 125MG 2ML VIAL IV PRN
[2023-07-28] MEDS: inFLIXimab INJECTION 700 MG in NS 180 ML IV ONE (08:08)
[2023-07-28 08:25] VITALS: BP 136/63; O2SAT 100
[2023-07-28 08:55] VITALS: BP 139/71; O2SAT 100
[2023-07-28 09:40] VITALS: BP 124/71; O2SAT 99
[2023-07-28 10:10] VITALS: BP 136/82; O2SAT 99
== END 2023-07-28 10:15 | disposition home or self-care (01) ==
LOC: M INFU 07:30
PROVIDERS: ATTEND Internal Medicine Rheumatology
DX: M06.09 Rheumatoid arthritis without rheumatoid factor, multiple sites (principal)
CPT/HCPCS: 96413; 96415; J1745

== ENCOUNTER → 2023-08-19 | Outpatient (CLI) | payer MEDICARE, OTHER ==
[~2023-08-19] MED LIST changes: -ALBUTEROL SULFATE 2.5MG/0.5ML INH NEB SOLN INH PRN; -EPINEPHrine INJ 1 MG/ML 1ML AMP IM PRN; +FURO20TA2; -diphenhydrAMINE 50MG/ML VIAL IV PRN; -methylPREDNISolone 125MG 2ML VIAL IV PRN
== END ==
LOC: M WHC 08:01
PROVIDERS: ATTEND Physician Assistant
DX: Z12.31 Encounter for screening mammogram for malignant neoplasm of breast (principal)

== ENCOUNTER 2023-08-25 07:30 | Outpatient (CLI) | payer MEDICARE, OTHER ==
[~2023-08-25] VITALS: Ht 152.4 cm; Wt 71.8 kg
[2023-08-25 07:30] VITALS: BP 146/67; O2SAT 99
[~2023-08-25 07:30] MED LIST changes: +ALBUTEROL SULFATE 2.5MG/0.5ML INH NEB SOLN INH PRN; +EPINEPHrine INJ 1 MG/ML 1ML AMP IM PRN; +diphenhydrAMINE 50MG/ML VIAL IV PRN; +methylPREDNISolone 125MG 2ML VIAL IV PRN
[2023-08-25] MEDS: inFLIXimab INJECTION 700 MG in NS 180 ML IV ONE (09:24)
[2023-08-25 10:00] VITALS: BP 157/65; O2SAT 100
[2023-08-25 10:30] VITALS: BP 158/70; O2SAT 100
[2023-08-25 11:00] VITALS: BP 141/76; O2SAT 100
[2023-08-25 11:30] VITALS: BP 158/70; O2SAT 100
== END 2023-08-25 11:45 ==
LOC: M INFU 07:30
PROVIDERS: ATTEND Internal Medicine Rheumatology
DX: M06.09 Rheumatoid arthritis without rheumatoid factor, multiple sites (principal)
CPT/HCPCS: 96413; 96415; J1745

== ENCOUNTER → 2023-08-27 | Outpatient (REF) | payer MEDICARE, OTHER ==
[~2023-08-27] MED LIST changes: -ALBUTEROL SULFATE 2.5MG/0.5ML INH NEB SOLN INH PRN; -EPINEPHrine INJ 1 MG/ML 1ML AMP IM PRN; -diphenhydrAMINE 50MG/ML VIAL IV PRN; -methylPREDNISolone 125MG 2ML VIAL IV PRN
[2023-08-27 15:09] LABS: ALBUMIN 3.9 G/DL (3.2-5.2); ALKALINE PHOSPHATASE 56 U/L (46-116); ALT/SGPT 17 U/L (7.0-40); AST/SGOT 19 U/L (<34); BILIRUBIN,TOTAL 0.5 MG/DL (0.3-1.2); BLOOD UREA NITROGEN 14 MG/DL (9-23); CALCIUM LEVEL 9.9 MG/DL (8.3-10.6); CARBON DIOXIDE LEVEL 28 MMOL/L (20-31); CHLORIDE LEVEL 97 MMOL/L (98-107); CREATININE FOR GFR 0.75 MG/DL (0.55-1.30); GLOMERULAR FILTRATION RATE > 60.0 (>39); GLUCOSE, FASTING 81 MG/DL (74-106); POTASSIUM SERUM 5.6 MMOL/L (3.5-5.1); SODIUM LEVEL 131 MMOL/L (136-145); TOTAL PROTEIN 7.5 G/DL (5.7-8.2)
[2023-08-27 15:22] LABS: BASO # 0.1 10^3/uL (0.0-0.2); BASO % 0.9 % (0.0-1.0); EOS # 0.5 10^3/uL (0.0-0.5); HEMATOCRIT 33.4 % (36.0-47.0); HEMOGLOBIN 10.8 g/dl (12.0-15.5); LYMPH # 2.2 10^3/uL (1.5-5.0); LYMPH % 33.5 % (24.0-44.0); MEAN CORPUSCULAR HEMOGLOBIN 29.6 pg (27.0-33.0); MEAN CORPUSCULAR HGB CONC 32.3 g/dl (32.0-36.5); MEAN CORPUSCULAR VOLUME 91.5 fl (80.0-96.0); MONO # 0.5 10^3/uL (0.0-0.8); MONO % 7.4 % (2.0-8.0); NEUTROPHILS # 3.4 10^3/uL (1.5-8.5); NEUTROPHILS % 50.9 % (36.0-66.0); RED BLOOD COUNT 3.65 10^6/uL (4.00-5.40); WHITE BLOOD COUNT 6.6 10^3/uL (4.0-10.0)
[2023-08-27 15:37] LABS: ERYTHROCYTE SEDIMENTATION RATE 99 mm/hr (0-30)
== END ==
LOC: M SFHCADAM 07:59
PROVIDERS: ATTEND Internal Medicine Rheumatology
DX: M06.09 Rheumatoid arthritis without rheumatoid factor, multiple sites (principal); M1A.49X0 Other secondary chronic gout, multiple sites, without tophus (tophi); M89.49 Other hypertrophic osteoarthropathy, multiple sites; Z79.899 Other long term (current) drug therapy; R70.0 Elevated erythrocyte sedimentation rate

== ENCOUNTER → 2023-09-07 | Outpatient (REF) | payer MEDICARE, OTHER | LOC: M SFHCADAM 12:50 | PROVIDERS: ATTEND Physician Assistant | DX: R39.9 Unspecified symptoms and signs involving the genitourinary system (principal) ==

== ENCOUNTER 2023-09-22 07:42 | Outpatient (CLI) | payer MEDICARE, OTHER ==
[~2023-09-22] VITALS: Ht 154.9 cm; Wt 70.8 kg
[2023-09-22 08:07] VITALS: BP 160/70; O2SAT 99
[2023-09-22] MEDS: inFLIXimab INJECTION 700 MG in NS 180 ML IV ONE (08:23)
[2023-09-22 10:22] VITALS: BP 133/64; O2SAT 100
== END 2023-09-22 10:25 ==
LOC: M INFU 07:42
PROVIDERS: ATTEND Internal Medicine Rheumatology
DX: M06.09 Rheumatoid arthritis without rheumatoid factor, multiple sites (principal)
CPT/HCPCS: 96413; 96415; J1745

== ENCOUNTER 2023-10-20 07:43 | Outpatient (CLI) | payer MEDICARE, OTHER ==
[~2023-10-20] VITALS: Ht 152.4 cm; Wt 71.0 kg
[2023-10-20 08:34] VITALS: BP 133/60; TEMP 98.1; O2SAT 99
[2023-10-20] MEDS: inFLIXimab INJECTION 700 MG in NS 180 ML IV ONE (09:28)
[2023-10-20 10:00] VITALS: BP 130/61; O2SAT 100
[2023-10-20 10:30] VITALS: BP 138/65; O2SAT 98
[2023-10-20 11:00] VITALS: BP 133/69; O2SAT 98
[2023-10-20 11:20] VITALS: BP 159/70; O2SAT 99
== END 2023-10-20 11:34 ==
LOC: M INFU 07:43
PROVIDERS: ATTEND Internal Medicine Rheumatology
DX: M06.09 Rheumatoid arthritis without rheumatoid factor, multiple sites (principal)
CPT/HCPCS: 96413; 96415; J1745

== ENCOUNTER 2023-11-17 08:28 | Outpatient (CLI) | payer MEDICARE, OTHER ==
[~2023-11-17] VITALS: Ht 152.4 cm; Wt 73.6 kg
[2023-11-17 08:25] VITALS: BP 160/77; O2SAT 98
[~2023-11-17 08:28] MED LIST changes: +ALBUTEROL SULFATE 2.5MG/0.5ML INH NEB SOLN INH PRN; +EPINEPHrine INJ 1 MG/ML 1ML AMP IM PRN; +diphenhydrAMINE 50MG/ML VIAL IV PRN; +methylPREDNISolone 125MG 2ML VIAL IV PRN
[2023-11-17 08:35] VITALS: BP 132/62; O2SAT 100
[2023-11-17] MEDS: inFLIXimab INJECTION 700 MG in NS 180 ML IV ONE (09:29)
[2023-11-17 10:45] VITALS: BP 140/70; O2SAT 98
[2023-11-17 11:35] VITALS: BP 128/60; O2SAT 100
== END 2023-11-17 11:38 ==
LOC: M INFU 08:28
PROVIDERS: ATTEND Internal Medicine Rheumatology
DX: M06.09 Rheumatoid arthritis without rheumatoid factor, multiple sites (principal)
CPT/HCPCS: 96413; 96415; J1745

== ENCOUNTER 2023-12-15 08:30 | Outpatient (CLI) | payer MEDICARE, OTHER ==
[~2023-12-15] VITALS: Ht 154.9 cm; Wt 71.1 kg
[2023-12-15] MEDS: inFLIXimab INJECTION 700 MG in NS 180 ML IV ONE (09:46)
[2023-12-15 11:50] VITALS: BP 138/96; TEMP 98.6; O2SAT 100
== END 2023-12-15 11:51 ==
LOC: M INFU 08:30
PROVIDERS: ATTEND Internal Medicine Rheumatology
DX: M06.09 Rheumatoid arthritis without rheumatoid factor, multiple sites (principal)
CPT/HCPCS: 96413; 96415; J1745

== ENCOUNTER → 2024-01-08 | Outpatient (CLI) | payer MEDICARE, OTHER ==
[~2024-01-08] MED LIST changes: -ALBUTEROL SULFATE 2.5MG/0.5ML INH NEB SOLN INH PRN; -EPINEPHrine INJ 1 MG/ML 1ML AMP IM PRN; -diphenhydrAMINE 50MG/ML VIAL IV PRN; -methylPREDNISolone 125MG 2ML VIAL IV PRN
[2024-01-08 13:43] LABS: BLOOD UREA NITROGEN 18 MG/DL (9-23); CALCIUM LEVEL 9.1 MG/DL (8.3-10.6); CARBON DIOXIDE LEVEL 27 MMOL/L (20-31); CHLORIDE LEVEL 102 MMOL/L (98-107); GLOMERULAR FILTRATION RATE > 60.0 (>39); GLUCOSE, FASTING 87 MG/DL (74-106); SODIUM LEVEL 132 MMOL/L (136-145)
[2024-01-08 13:48] LABS: THYROID STIMULATING HORMONE 3.892 uIU/ML (0.55-4.78)
== END ==
LOC: M PLALAB 09:08
PROVIDERS: ATTEND Physician Assistant
DX: E03.9 Hypothyroidism, unspecified (principal); E87.5 Hyperkalemia; M06.09 Rheumatoid arthritis without rheumatoid factor, multiple sites; R70.0 Elevated erythrocyte sedimentation rate; M1A.49X0 Other secondary chronic gout, multiple sites, without tophus (tophi); Z79.899 Other long term (current) drug therapy

== ENCOUNTER → 2024-01-08 | Outpatient (CLI) | payer MEDICARE, OTHER ==
[2024-01-08 13:44] LABS: C REACTIVE PROTEIN QUANTITATIV < 0.40 MG/DL (<1.0)
[2024-01-08 13:46] LABS: ALBUMIN 3.6 G/DL (3.2-5.2); ALKALINE PHOSPHATASE 54 U/L (46-116); ALT/SGPT 16 U/L (7.0-40); AST/SGOT 24 U/L (<34); BILIRUBIN,TOTAL 0.5 MG/DL (0.3-1.2); BLOOD UREA NITROGEN 18 MG/DL (9-23); CALCIUM LEVEL 9.5 MG/DL (8.3-10.6); CARBON DIOXIDE LEVEL 27 MMOL/L (20-31); CHLORIDE LEVEL 99 MMOL/L (98-107); CREATININE FOR GFR 0.83 MG/DL (0.55-1.30); GLOMERULAR FILTRATION RATE > 60.0 (>39); GLUCOSE, FASTING 87 MG/DL (74-106); POTASSIUM SERUM 4.9 MMOL/L (3.5-5.1); SODIUM LEVEL 133 MMOL/L (136-145); TOTAL PROTEIN 7.6 G/DL (5.7-8.2)
[2024-01-08 14:12] LABS: BASO # 0.1 10^3/uL (0.0-0.2); EOS # 0.5 10^3/uL (0.0-0.5); EOS % 6.7 % (0.0-3.0); HEMATOCRIT 33.6 % (36.0-47.0); HEMOGLOBIN 10.6 g/dl (12.0-15.5); LYMPH # 2.2 10^3/uL (1.5-5.0); LYMPH % 31.6 % (24.0-44.0); MEAN CORPUSCULAR HEMOGLOBIN 29.4 pg (27.0-33.0); MEAN CORPUSCULAR HGB CONC 31.5 g/dl (32.0-36.5); MEAN CORPUSCULAR VOLUME 93.1 fl (80.0-96.0); MONO # 0.5 10^3/uL (0.0-0.8); MONO % 7.5 % (2.0-8.0); NEUTROPHILS # 3.7 10^3/uL (1.5-8.5); NEUTROPHILS % 53.1 % (36.0-66.0); RED BLOOD COUNT 3.61 10^6/uL (4.00-5.40)
[2024-01-08 14:17] LABS: ERYTHROCYTE SEDIMENTATION RATE 85 mm/hr (0-30)
== END ==
LOC: M PLALAB 09:05
PROVIDERS: ATTEND Internal Medicine Rheumatology
DX: M06.09 Rheumatoid arthritis without rheumatoid factor, multiple sites (principal); M1A.49X0 Other secondary chronic gout, multiple sites, without tophus (tophi); Z79.899 Other long term (current) drug therapy; R70.0 Elevated erythrocyte sedimentation rate

== ENCOUNTER 2024-01-13 08:25 | Outpatient (CLI) | payer MEDICARE, OTHER ==
[~2024-01-13] VITALS: Ht 152.4 cm; Wt 71.6 kg
[~2024-01-13 08:25] MED LIST changes: +ALBUTEROL SULFATE 2.5MG/0.5ML INH NEB SOLN INH PRN; +EPINEPHrine INJ 1 MG/ML 1ML AMP IM PRN; +diphenhydrAMINE 50MG/ML VIAL IV PRN; +methylPREDNISolone 125MG 2ML VIAL IV PRN
[2024-01-13 08:30] VITALS: BP 160/71; O2SAT 99
[2024-01-13] MEDS: inFLIXimab INJECTION 700 MG in NS 180 ML IV ONE (09:14)
[2024-01-13 10:00] VITALS: BP 124/78; O2SAT 98
[2024-01-13 11:10] VITALS: BP 151/68; O2SAT 100
== END 2024-01-13 11:25 ==
LOC: M INFU 08:25
PROVIDERS: ATTEND Internal Medicine Rheumatology
DX: M06.09 Rheumatoid arthritis without rheumatoid factor, multiple sites (principal)
CPT/HCPCS: 96413; 96415; J1745

== ENCOUNTER 2024-02-09 08:35 | Outpatient (CLI) | payer MEDICARE, OTHER ==
[~2024-02-09] VITALS: Ht 152.4 cm; Wt 71.2 kg
[2024-02-09 08:35] VITALS: BP 148/63; O2SAT 100
[2024-02-09] MEDS: inFLIXimab INJECTION 700 MG in NS 180 ML IV ONE (09:14)
[2024-02-09 09:45] VITALS: BP 135/65; O2SAT 98
[2024-02-09 10:15] VITALS: BP 130/71; O2SAT 98
[2024-02-09 11:21] VITALS: BP 124/66; O2SAT 100
== END 2024-02-09 11:25 ==
LOC: M INFU 08:35
PROVIDERS: ATTEND Internal Medicine Rheumatology
DX: M06.09 Rheumatoid arthritis without rheumatoid factor, multiple sites (principal)
CPT/HCPCS: 96413; 96415; J1745

== ENCOUNTER 2024-03-08 08:30 | Outpatient (CLI) | payer MEDICARE, OTHER ==
[~2024-03-08] VITALS: Ht 152.4 cm; Wt 72.1 kg
[2024-03-08 08:41] VITALS: BP 136/63; O2SAT 99
[2024-03-08] MEDS: inFLIXimab INJECTION 700 MG in NS 180 ML IV ONE (09:32)
[2024-03-08 10:15] VITALS: BP 148/72; O2SAT 100
[2024-03-08 11:31] VITALS: BP 174/81; O2SAT 99
== END 2024-03-08 11:33 ==
LOC: M INFU 08:30
PROVIDERS: ATTEND Internal Medicine Rheumatology
DX: M06.09 Rheumatoid arthritis without rheumatoid factor, multiple sites (principal)
CPT/HCPCS: 96413; 96415; J1745

== ENCOUNTER 2024-04-05 08:38 | Outpatient (CLI) | payer MEDICARE, OTHER ==
[~2024-04-05] VITALS: Ht 152.4 cm; Wt 71.2 kg
[2024-04-05 08:45] VITALS: BP 150/87; O2SAT 98
[2024-04-05] MEDS: inFLIXimab INJECTION 700 MG in NS 180 ML IV ONE (09:21)
[2024-04-05 10:00] VITALS: BP 120/67; O2SAT 100
[2024-04-05 10:30] VITALS: BP 130/71; O2SAT 99
[2024-04-05 11:00] VITALS: BP 156/84; O2SAT 100
== END 2024-04-05 11:10 ==
LOC: M INFU 08:38
PROVIDERS: ATTEND Internal Medicine Rheumatology
DX: M06.09 Rheumatoid arthritis without rheumatoid factor, multiple sites (principal)
CPT/HCPCS: 96413; 96415; J1745

== ENCOUNTER 2024-05-03 08:30 | Outpatient (CLI) | payer MEDICARE, OTHER ==
[~2024-05-03] VITALS: Ht 152.4 cm; Wt 70.9 kg
[~2024-05-03 08:30] MED LIST changes: +ALBUTEROL SULFATE 2.5MG/0.5ML INH CONCENTRATE NEB SOLN INH PRN; -ALBUTEROL SULFATE 2.5MG/0.5ML INH NEB SOLN INH PRN
[2024-05-03 08:45] VITALS: BP 136/66; O2SAT 100
[2024-05-03] MEDS: inFLIXimab INJECTION 700 MG in NS 180 ML IV ONE (09:25)
[2024-05-03 11:29] VITALS: BP 131/81; O2SAT 100
== END 2024-05-03 11:30 ==
LOC: M INFU 08:30
PROVIDERS: ATTEND Internal Medicine Rheumatology
DX: M06.09 Rheumatoid arthritis without rheumatoid factor, multiple sites (principal)
CPT/HCPCS: 96413; 96415; J1745

== ENCOUNTER → 2024-05-13 | Outpatient (REF) | payer MEDICARE, OTHER ==
[~2024-05-13] MED LIST changes: -ALBUTEROL SULFATE 2.5MG/0.5ML INH CONCENTRATE NEB SOLN INH PRN; -EPINEPHrine INJ 1 MG/ML 1ML AMP IM PRN; -diphenhydrAMINE 50MG/ML VIAL IV PRN; -methylPREDNISolone 125MG 2ML VIAL IV PRN
[2024-05-13 14:12] LABS: URIC ACID 4.6 MG/DL (3.1-7.8)
[2024-05-13 14:13] LABS: BASO # 0.1 10^3/uL (0.0-0.2); BASO % 0.7 % (0.0-1.0); EOS # 0.5 10^3/uL (0.0-0.5); EOS % 7.2 % (0.0-3.0); HEMATOCRIT 33.4 % (36.0-47.0); HEMOGLOBIN 10.6 g/dl (12.0-15.5); LYMPH # 2.5 10^3/uL (1.5-5.0); LYMPH % 36.1 % (24.0-44.0); MEAN CORPUSCULAR HGB CONC 31.7 g/dl (32.0-36.5); MEAN CORPUSCULAR VOLUME 94.6 fl (80.0-96.0); MONO # 0.5 10^3/uL (0.0-0.8); MONO % 6.7 % (2.0-8.0); NEUTROPHILS # 3.4 10^3/uL (1.5-8.5); RED BLOOD COUNT 3.53 10^6/uL (4.00-5.40); WHITE BLOOD COUNT 6.8 10^3/uL (4.0-10.0)
[2024-05-13 14:15] LABS: ALBUMIN 3.7 G/DL (3.2-5.2); ALKALINE PHOSPHATASE 50 U/L (35-104); ALT/SGPT 17 U/L (7.0-40); AST/SGOT 25 U/L (<34); BILIRUBIN,TOTAL 0.5 MG/DL (0.3-1.2); BLOOD UREA NITROGEN 17 MG/DL (9-23); C REACTIVE PROTEIN QUANTITATIV < 0.50 MG/DL (<1.0); CALCIUM LEVEL 9.1 MG/DL (8.3-10.6); CARBON DIOXIDE LEVEL 26 MMOL/L (20-31); CHLORIDE LEVEL 99 MMOL/L (98-107); CREATININE FOR GFR 0.77 MG/DL (0.55-1.30); GLOMERULAR FILTRATION RATE > 60.0 (>39); GLUCOSE, FASTING 82 MG/DL (74-106); POTASSIUM SERUM 5.3 MMOL/L (3.5-5.1); SODIUM LEVEL 136 MMOL/L (136-145); TOTAL PROTEIN 7.7 G/DL (5.7-8.2)
[2024-05-13 15:13] LABS: ERYTHROCYTE SEDIMENTATION RATE 101 mm/hr (0-30)
== END ==
LOC: M LABDRWAD 13:35
PROVIDERS: ATTEND Internal Medicine Rheumatology
DX: M06.09 Rheumatoid arthritis without rheumatoid factor, multiple sites (principal); M1A.49X0 Other secondary chronic gout, multiple sites, without tophus (tophi); M89.49 Other hypertrophic osteoarthropathy, multiple sites; Z79.899 Other long term (current) drug therapy; R70.0 Elevated erythrocyte sedimentation rate

== ENCOUNTER 2024-05-31 10:00 | Outpatient (CLI) | payer MEDICARE, OTHER ==
[~2024-05-31] VITALS: Ht 152.4 cm; Wt 70.9 kg
[~2024-05-31 10:00] MED LIST changes: +ALBUTEROL SULFATE 2.5MG/0.5ML INH NEB SOLN INH PRN; +EPINEPHrine INJ 1 MG/ML 1ML AMP IM PRN; +NS (Normal Saline) 0.9% 1,000 ML IV SCH; +diphenhydrAMINE 50MG/ML VIAL IV PRN; +methylPREDNISolone 125MG 2ML VIAL IV PRN
[2024-05-31 10:12] VITALS: BP 161/69; O2SAT 99
[2024-05-31] MEDS: inFLIXimab INJECTION 700 MG in NS 180 ML IV ONE (11:12)
[2024-05-31 11:30] VITALS: BP 127/62; O2SAT 97
[2024-05-31 12:00] VITALS: BP 140/67; O2SAT 100
[2024-05-31 12:30] VITALS: BP 139/70; O2SAT 98
[2024-05-31 13:25] VITALS: BP 144/65; O2SAT 100
== END 2024-05-31 13:25 ==
LOC: M INFU 10:00
PROVIDERS: ATTEND Internal Medicine Rheumatology
DX: M06.09 Rheumatoid arthritis without rheumatoid factor, multiple sites (principal)
CPT/HCPCS: 96413; 96415; J1745

== ENCOUNTER 2024-06-28 08:30 | Outpatient (CLI) | payer MEDICARE, OTHER ==
[~2024-06-28] VITALS: Ht 152.4 cm; Wt 70.9 kg
[2024-06-28 08:30] VITALS: BP 137/84; O2SAT 99
[~2024-06-28 08:30] MED LIST changes: -NS (Normal Saline) 0.9% 1,000 ML IV SCH
[2024-06-28] MEDS: inFLIXimab INJECTION 700 MG in NS 180 ML IV ONE (09:05)
[2024-06-28 09:45] VITALS: BP 139/64; O2SAT 100
[2024-06-28 10:15] VITALS: BP 133/71; O2SAT 100
[2024-06-28 10:45] VITALS: BP 118/56; O2SAT 97
[2024-06-28 11:20] VITALS: BP 127/60; O2SAT 100
== END 2024-06-28 11:20 ==
LOC: M INFU 08:30
PROVIDERS: ATTEND Internal Medicine Rheumatology
DX: M06.09 Rheumatoid arthritis without rheumatoid factor, multiple sites (principal)
CPT/HCPCS: 96413; 96415; J1745

== ENCOUNTER 2024-07-11 09:49 | Emergency (ER) | payer MEDICARE, OTHER ==
[~2024-07-11] VITALS: Ht 152.4 cm; Wt 70.9 kg
[~2024-07-11 09:49] MED LIST changes: -ALBUTEROL SULFATE 2.5MG/0.5ML INH NEB SOLN INH PRN; -EPINEPHrine INJ 1 MG/ML 1ML AMP IM PRN; -diphenhydrAMINE 50MG/ML VIAL IV PRN; -methylPREDNISolone 125MG 2ML VIAL IV PRN
[2024-07-11] MEDS: MORPHINE 2 MG/ML 1ML VIAL IV ONE (10:17)
[2024-07-11] MEDS ORDERED: LOSA25TA13 (10:29)
[2024-07-11 10:32] LABS: BASO # 0.1 10^3/uL (0.0-0.2); BASO % 0.5 % (0.0-1.0); EOS # 0.2 10^3/uL (0.0-0.5); EOS % 2.3 % (0.0-3.0); HEMATOCRIT 33.4 % (36.0-47.0); HEMOGLOBIN 10.6 g/dl (12.0-15.5); LYMPH # 2.2 10^3/uL (1.5-5.0); LYMPH % 22.1 % (24.0-44.0); MEAN CORPUSCULAR HGB CONC 31.7 g/dl (32.0-36.5); MEAN CORPUSCULAR VOLUME 91.3 fl (80.0-96.0); MONO # 0.5 10^3/uL (0.0-0.8); NEUTROPHILS % 69.9 % (36.0-66.0); PLATELET COUNT, AUTOMATED 138 10^3/uL (150-450); RED BLOOD COUNT 3.66 10^6/uL (4.00-5.40)
[2024-07-11 10:42] LABS: ERYTHROCYTE SEDIMENTATION RATE 81 mm/hr (0-30)
[2024-07-11 11:01] LABS: C REACTIVE PROTEIN QUANTITATIV < 0.50 MG/DL (<1.0)
[2024-07-11 11:02] LABS: BLOOD UREA NITROGEN 15 MG/DL (9-23); CALCIUM LEVEL 9.2 MG/DL (8.3-10.6); CARBON DIOXIDE LEVEL 26 MMOL/L (20-31); CHLORIDE LEVEL 98 MMOL/L (98-107); CREATININE FOR GFR 0.72 MG/DL (0.55-1.30); GLOMERULAR FILTRATION RATE 88.2 (>39); GLUCOSE, FASTING 88 MG/DL (74-106); POTASSIUM SERUM 4.4 MMOL/L (3.5-5.1); SODIUM LEVEL 135 MMOL/L (136-145)
[2024-07-11 11:04] LABS: URIC ACID 4.7 MG/DL (3.1-7.8)
[2024-07-11] MEDS: PERCOCET 5MG/325MG TAB PO ONE (13:05)
[2024-07-11 13:31] VITALS: BP 138/74; TEMP 97.4; O2SAT 100
[2024-07-11] MEDS ORDERED: rolling walker (13:56)
[2024-07-11] MEDS ORDERED: physical therapy (13:57)
[2024-07-11] MEDS ORDERED: PERC5TAB12 PO (14:29)
[2024-07-14 15:23] LABS: LYME TOTAL ANTIBODY CIA <= 0.90 Index (<=0.90)
== END 2024-07-11 14:35 | disposition home or self-care (01) ==
LOC: M ED 09:49 → EDBD 09:49 → M ED 14:35
DX: M17.11 Unilateral primary osteoarthritis, right knee (principal); I10 Essential (primary) hypertension; E78.5 Hyperlipidemia, unspecified; D64.9 Anemia, unspecified; M10.9 Gout, unspecified; M06.9 Rheumatoid arthritis, unspecified; Z79.82 Long term (current) use of aspirin; Z79.899 Other long term (current) drug therapy

== ENCOUNTER → 2024-07-19 | Outpatient (REF) | payer MEDICARE, OTHER ==
[~2024-07-19] MED LIST changes: +LOSA25TA13; +PERC5TAB12 PO; +physical therapy; +rolling walker
[2024-07-19 13:48] LABS: CALCIUM LEVEL 9.7 MG/DL (8.3-10.6); CHOLESTEROL RISK RATIO 3.5 (<5); CREATININE FOR GFR 0.77 MG/DL (0.55-1.30); GLOMERULAR FILTRATION RATE 81.4 (>39); LDL CHOLESTEROL 138.2 MG/DL (<100); POTASSIUM SERUM 4.7 MMOL/L (3.5-5.1)
[2024-07-19 13:51] LABS: FREE T4 1.02 NG/DL (0.89-1.76); THYROID STIMULATING HORMONE 8.742 uIU/ML (0.55-4.78)
[2024-07-19 13:57] LABS: HEMOGLOBIN A1c 4.4 % (4.0-6.0)
== END ==
LOC: M SFHCADAM 08:17
PROVIDERS: ATTEND Physician Assistant
DX: E03.9 Hypothyroidism, unspecified (principal); M06.09 Rheumatoid arthritis without rheumatoid factor, multiple sites; M81.0 Age-related osteoporosis without current pathological fracture; I10 Essential (primary) hypertension; E87.5 Hyperkalemia; Z79.899 Other long term (current) drug therapy

== ENCOUNTER 2024-07-26 08:47 | Outpatient (CLI) | payer MEDICARE, OTHER ==
[~2024-07-26] VITALS: Ht 152.4 cm; Wt 72.0 kg
[~2024-07-26 08:47] MED LIST changes: +ALBUTEROL SULFATE 2.5MG/0.5ML INH CONCENTRATE NEB SOLN INH PRN; +EPINEPHrine INJ 1 MG/ML 1ML AMP IM PRN; +diphenhydrAMINE 50MG/ML VIAL IV PRN; +methylPREDNISolone 125MG 2ML VIAL IV PRN
[2024-07-26 09:00] VITALS: BP 158/70; O2SAT 99
[2024-07-26] MEDS: inFLIXimab INJECTION 700 MG in NS 180 ML IV ONE (09:54)
[2024-07-26 10:10] VITALS: BP 160/74; O2SAT 99
[2024-07-26 11:56] VITALS: BP 139/69; O2SAT 100
== END 2024-07-26 12:00 ==
LOC: M INFU 08:47
PROVIDERS: ATTEND Internal Medicine Rheumatology
DX: M06.09 Rheumatoid arthritis without rheumatoid factor, multiple sites (principal)
CPT/HCPCS: 96413; 96415; J1745

== ENCOUNTER 2024-10-18 09:27 | Outpatient (CLI) | payer MEDICARE, OTHER ==
[~2024-10-18] VITALS: Ht 152.4 cm; Wt 74.3 kg
[~2024-10-18 09:27] MED LIST changes: +ALBUTEROL SULFATE 2.5 MG/0.5 ML INH CONCENTRATE NEB SOLN INH PRN; -ALBUTEROL SULFATE 2.5MG/0.5ML INH CONCENTRATE NEB SOLN INH PRN; +diphenhydrAMINE 50 MG/ML VIAL IV PRN; -diphenhydrAMINE 50MG/ML VIAL IV PRN; -methylPREDNISolone 125MG 2ML VIAL IV PRN
[2024-10-18 09:30] VITALS: BP 109/58; O2SAT 100
[2024-10-18] MEDS: inFLIXimab INJECTION 700 MG in NS 180 ML IV ONE (10:28)
[2024-10-18 11:30] VITALS: BP 110/68; O2SAT 100
[2024-10-18 12:44] VITALS: BP 143/69; O2SAT 100
== END 2024-10-18 12:50 ==
LOC: M INFU 09:27
PROVIDERS: ATTEND Internal Medicine Rheumatology
DX: M06.09 Rheumatoid arthritis without rheumatoid factor, multiple sites (principal)
CPT/HCPCS: 96413; 96415; J1745

== ENCOUNTER 2024-11-22 08:34 | Outpatient (CLI) | payer MEDICARE, OTHER ==
[~2024-11-22] VITALS: Ht 152.4 cm; Wt 74.4 kg
[~2024-11-22 08:34] MED LIST changes: -FURO20TA2; +FURO20TA2 PO; +IRON27TA2 PO; +LISI5TAB11 PO; +LORA-1041 PO; -LOSA25TA13; +LOSA25TA13 PO; +LOVA10TA PO; +MULTTAB61 PO; +VITA500T41 PO
[2024-11-22 08:50] VITALS: BP 138/60; O2SAT 99
[2024-11-22] MEDS: inFLIXimab INJECTION 700 MG in NS 180 ML IV ONE (09:25)
[2024-11-22 10:00] VITALS: BP 166/84; O2SAT 100
[2024-11-22 10:25] VITALS: BP 137/65; O2SAT 95
[2024-11-22 10:30] VITALS: BP 157/80; O2SAT 99
[2024-11-22 11:00] VITALS: BP 159/88; O2SAT 100
[2024-11-22 11:30] VITALS: BP 137/66; O2SAT 100
== END 2024-11-22 11:30 | disposition home or self-care (01) ==
LOC: M INFU 08:34
PROVIDERS: ATTEND Internal Medicine Rheumatology
DX: M06.09 Rheumatoid arthritis without rheumatoid factor, multiple sites (principal)
CPT/HCPCS: 96413; 96415; J1745

== ENCOUNTER 2024-12-26 07:54 | Outpatient (CLI) | payer MEDICARE, OTHER ==
[~2024-12-26] VITALS: Ht 152.4 cm; Wt 73.6 kg
[~2024-12-26 07:54] MED LIST changes: -COLC0.6T47 PO; +COLC0.6T53 PO
[2024-12-26 08:00] VITALS: BP 167/72; O2SAT 100
[2024-12-26] MEDS: inFLIXimab INJECTION 700 MG in NS 180 ML IV ONE (08:57)
[2024-12-26 09:35] VITALS: BP 156/67; O2SAT 100
[2024-12-26 10:01] VITALS: BP 141/64; O2SAT 99
[2024-12-26 11:10] VITALS: BP 142/65; O2SAT 100
== END 2024-12-26 11:10 | disposition home or self-care (01) ==
LOC: M INFU 07:54
PROVIDERS: ATTEND Internal Medicine Rheumatology
DX: M06.09 Rheumatoid arthritis without rheumatoid factor, multiple sites (principal)
CPT/HCPCS: 96413; 96415; J1745

== ENCOUNTER → 2025-01-18 | Outpatient (REF) | payer MEDICARE, OTHER ==
[~2025-01-18] MED LIST changes: -ALBUTEROL SULFATE 2.5 MG/0.5 ML INH CONCENTRATE NEB SOLN INH PRN; -EPINEPHrine INJ 1 MG/ML 1ML AMP IM PRN; -diphenhydrAMINE 50 MG/ML VIAL IV PRN
[2025-01-18 14:08] LABS: BASO # 0.1 10^3/uL (0.0-0.2); BASO % 0.6 % (0.0-1.0); C REACTIVE PROTEIN QUANTITATIV < 0.50 MG/DL (<1.0); EOS # 0.5 10^3/uL (0.0-0.5); EOS % 6.5 % (0.0-3.0); LYMPH # 2.5 10^3/uL (1.5-5.0); LYMPH % 29.9 % (24.0-44.0); MONO # 0.6 10^3/uL (0.0-0.8); MONO % 7.5 % (2.0-8.0); NEUTROPHILS # 4.6 10^3/uL (1.5-8.5); NEUTROPHILS % 55.3 % (36.0-66.0); PLATELET COUNT, AUTOMATED 101 10^3/uL (150-450)
[2025-01-18 14:09] LABS: ALT/SGPT 18 U/L (7.0-40); AST/SGOT 27 U/L (<34); CALCIUM LEVEL 9.0 MG/DL (8.3-10.6); CARBON DIOXIDE LEVEL 28 MMOL/L (20-31); CHLORIDE LEVEL 99 MMOL/L (98-107); CHOLESTEROL LEVEL 235 MG/DL (<200); CHOLESTEROL RISK RATIO 3.09 (<5); CREATININE FOR GFR 0.73 MG/DL (0.55-1.30); GLOMERULAR FILTRATION RATE 86.2 (>39); LDL CHOLESTEROL 125.6 MG/DL (<100); NON-HDL-C 159.0 MG/DL; POTASSIUM SERUM 4.8 MMOL/L (3.5-5.1); SODIUM LEVEL 137 MMOL/L (136-145); TRIGLYCERIDES LEVEL 167 MG/DL (<150)
== END ==
LOC: M SFHCADAM 08:49
PROVIDERS: ATTEND Internal Medicine Rheumatology
DX: E03.9 Hypothyroidism, unspecified (principal); E78.2 Mixed hyperlipidemia; M06.09 Rheumatoid arthritis without rheumatoid factor, multiple sites; M1A.49X0 Other secondary chronic gout, multiple sites, without tophus (tophi); M89.49 Other hypertrophic osteoarthropathy, multiple sites; Z79.899 Other long term (current) drug therapy; R70.0 Elevated erythrocyte sedimentation rate

== ENCOUNTER 2025-01-23 08:52 | Outpatient (CLI) | payer MEDICARE, OTHER ==
[~2025-01-23] VITALS: Ht 154.9 cm; Wt 74.0 kg
[~2025-01-23 08:52] MED LIST changes: +ALBUTEROL SULFATE 2.5 MG/0.5 ML INH CONCENTRATE NEB SOLN INH PRN; +EPINEPHrine INJ 1 MG/ML 1ML AMP IM PRN; +diphenhydrAMINE 50 MG/ML VIAL IV PRN
[2025-01-23 09:00] VITALS: BP 161/74; O2SAT 99
[2025-01-23] MEDS: inFLIXimab INJECTION 700 MG in NS 180 ML IV ONE (09:46)
[2025-01-23 10:45] VITALS: BP 150/68; O2SAT 98
[2025-01-23 11:45] VITALS: BP 130/78; O2SAT 99
== END 2025-01-23 11:59 | disposition home or self-care (01) ==
LOC: M INFU 08:52
PROVIDERS: ATTEND Internal Medicine Rheumatology
DX: M06.09 Rheumatoid arthritis without rheumatoid factor, multiple sites (principal)
CPT/HCPCS: 96413; 96415; J1745

== ENCOUNTER 2025-02-20 08:34 | Outpatient (CLI) | payer MEDICARE, OTHER ==
[~2025-02-20] VITALS: Ht 152.4 cm; Wt 73.6 kg
[2025-02-20 09:00] VITALS: BP 150/89; O2SAT 97
[2025-02-20] MEDS: inFLIXimab INJECTION 700 MG in NS 180 ML IV ONE (09:45)
[2025-02-20 09:55] VITALS: BP 130/58; O2SAT 100
[2025-02-20 10:30] VITALS: BP 136/60; O2SAT 100
[2025-02-20 11:00] VITALS: BP 131/60; O2SAT 100
== END 2025-02-20 11:22 | disposition home or self-care (01) ==
LOC: M INFU 08:34
PROVIDERS: ATTEND Internal Medicine Rheumatology
DX: M06.09 Rheumatoid arthritis without rheumatoid factor, multiple sites (principal)
CPT/HCPCS: 96413; 96415; J1745

== ENCOUNTER 2025-03-20 08:03 | Outpatient (CLI) | payer MEDICARE, OTHER ==
[~2025-03-20] VITALS: Ht 152.4 cm; Wt 73.2 kg
[2025-03-20 08:24] VITALS: BP 139/59; O2SAT 97
[2025-03-20] MEDS: inFLIXimab INJECTION 700 MG in NS 180 ML IV ONE (09:00)
[2025-03-20 09:30] VITALS: BP 133/78; O2SAT 96
[2025-03-20 10:00] VITALS: BP 122/56; O2SAT 100
[2025-03-20 10:35] VITALS: BP 141/64; O2SAT 99
[2025-03-20 11:05] VITALS: BP 146/70; O2SAT 99
== END 2025-03-20 11:05 | disposition home or self-care (01) ==
LOC: M INFU 08:03
PROVIDERS: ATTEND Internal Medicine Rheumatology
DX: M06.09 Rheumatoid arthritis without rheumatoid factor, multiple sites (principal)
CPT/HCPCS: 96413; 96415; J1745